=== PATIENT | male | born 1970 | race American Indian/Alaskan Native ===

== ENCOUNTER 2019-10-06 02:01 | Inpatient (IN) | payer MEDICARE ==
--- NOTE | 2019-10-06 03:47 | XRay Report ---
CHEST 2 VIEWS INDICATION / CLINICAL INFORMATION: SOB. COMPARISON: 05/18/2018 FINDINGS: SUPPORT DEVICES: Venous access catheter is present with the tip projecting in the SVC. Catheter is un changed in position. HEART / MEDIASTINUM: No significant abnormality. LUNGS / PLEURA: No significant pulmonary or pleural abnormality. No pneumothorax. ADDITIONAL FINDINGS: No significant additional findings. IMPRESSION: 1. No acute findings. No interval change. Signer Name: Tere Armijo MD Signed: 10/06/2019 3:42 AM Workstation Name: [id number]
[2019-10-06 03:54] LABS: Basophils % (Auto) 0.8 % (0.0-1.8); Eosinophils # (Auto) 0.1 K/mm3 (0.0-0.4); Eosinophils % (Auto) 1.6 % (0.0-4.3); Hematocrit 46.1 % (35.5-45.6); Hemoglobin 14.9 gm/dl (11.8-15.2); Lymphocytes # (Auto) 1.9 K/mm3 (1.2-5.4); Lymphocytes % (Auto) 29.4 % (13.4-35.0); Mean Corpuscular HGB Conc 32 % (32-34); Mean Corpuscular Volume 95 fl (84-94); Monocytes # (Auto) 0.5 K/mm3 (0.0-0.8); Monocytes % (Auto) 8.2 % (0.0-7.3); Platelet Count 151 K/mm3 (140-440); Red Blood Count 4.87 M/mm3 (3.65-5.03); Red Cell Distribution Width 14.6 % (13.2-15.2)
[2019-10-06 04:11] LABS: Alanine Aminotransferase 10 units/L (7-56); Albumin 3.1 g/dL (3.9-5); BUN/Creatinine Ratio 11; Blood Urea Nitrogen 21 mg/dL (9-20); Hemolysis Index 22
[2019-10-06] MEDS ORDERED: ONDANSETRON 4 MG/2 ML INJ IV ONE (08:01)
[2019-10-06] MEDS ORDERED: FAMOTIDINE 20 MG/2 ML INJ IV ONE (08:01)
[2019-10-06] MEDS ORDERED: NITROGLYCERIN 0.4 MG TAB SUBL SL PRN (08:02)
[2019-10-06] MEDS ORDERED: HEPARIN 10,000 UNITS/10 ML VIAL IV ONE (08:02)
--- NOTE | 2019-10-06 08:04 | Emergency Department Report ---
ED General Adult HPI - General Chief complaint: Dyspnea/Respdistress Stated complaint: LUPUS NEPHRITIS/LEGS SWOLLEN/CHEST PAIN Time Seen by Provider: 10/06/19 07:52 Source: patient, RN notes reviewed, old records reviewed Mode of arrival: Ambulatory Limitations: No Limitations - History of Present Illness Initial comments: The patient is a 48-year-old gentleman. He is not known to myself previously. He does not have a local primary care doctor. He has a history of hypercoagulable state, history of DVT, pulmonary embolism, IVC filter, noncompliant with anticoagulation, COPD, tobacco use, obesity, and sleep apnea, noncompliant with CPAP. He has not taken his medicines since January 2019. He presents to the ER with a complaint of acute on chronic bilateral lower extremity pain and swelling, unintentional weight gain, central chest pressure, shortness of breath, vomiting. There is no headache, neck pain. He endorses unintentional weight gain of 15 to 20 pounds. The chest pain is central, and does not radiate anywhere. Shortness of breath is acute on chronic. No hematemesis or bright red blood per rectum. No urinary symptoms that he is aware of. He continues to smoke cigarettes. -: Gradual Location: chest, left, right, lower extremity Radiation: non-radiation Quality: aching Consistency: constant Improves with: rest Worsens with: movement - Related Data Home Medications Medication Instructions Recorded Confirmed Last Taken Gabapentin [Neurontin] 600 mg PO TID 10/12/17 10/12/17 Unknown HYDROcodone/ACETAMINOPHEN [Vicodin 5 mg PO BID 10/12/17 10/12/17 10/12/17 HP 10-300 mg TAB] 1 Methadone [Dolophine] 10 mg PO Q8H 10/12/17 10/12/17 10/12/17 1 Torsemide [Demadex] 100 mg PO QDAY 10/12/17 10/12/17 Unknown traZODone [Desyrel] 100 mg PO QHS 10/12/17 10/12/17 Unknown Previous Rx's Medication Instructions Recorded Last Taken Type Albuterol Sulfate [Proventil Hfa] 2 puff IH Q4H PRN #1 hfa.aer.ad 10/14/17 Unknown Rx Apixaban [Eliquis] 2.5 mg PO BID #60 tablet 10/14/17 Unknown Rx Aspirin 325 mg PO QDAY #30 tablet 10/14/17 Unknown Rx AtorvaSTATin [Lipitor] 20 mg PO QHS #30 tablet 10/14/17 Unknown Rx Azithromycin [Zithromax Z-FRANCISCO] 250 mg PO QAM #1 pack 10/14/17 Unknown Rx carvediloL [Coreg] 6.25 mg PO BID #60 tablet 10/14/17 Unknown Rx lisinopriL [Zestril TAB] 5 mg PO QDAY #30 tablet 10/14/17 Unknown Rx methylPREDNISolone [Medrol Dose 4 mg PO QAM #1 pack 10/14/17 Unknown Rx Francisco] Allergies Allergy/AdvReac Type Severity Reaction Status Date / Time morphine Allergy Hives Verified 08/06/16 16:25 tramadol Allergy Nausea Verified 10/12/17 21:14 ED Review of Systems ROS: Stated complaint: LUPUS NEPHRITIS/LEGS SWOLLEN/CHEST PAIN Other details as noted in HPI Constitutional: malaise. denies: fever Eyes: denies: eye discharge ENT: congestion Respiratory: cough, shortness of breath Cardiovascular: chest pain Gastrointestinal: nausea. denies: hematemesis, melena, hematochezia Genitourinary: denies: dysuria Musculoskeletal: arthralgia, myalgia Skin: as per HPI Neurological: as per HPI, weakness Psychiatric: as per HPI Hematological/Lymphatic: as per HPI. denies: easy bleeding ED Past Medical Hx - Past Medical History Previous Medical History?: Yes Hx Hypertension: Yes Hx Heart Attack/AMI: No Hx Congestive Heart Failure: No Hx Diabetes: No Hx Deep Vein Thrombosis: Yes Hx Pulmonary Embolism: Yes Hx Liver Disease: No Hx Renal Disease: No Hx Arthritis: Yes Hx Kidney Stones: No Hx Asthma: No Hx COPD: Yes Hx Tuberculosis: No Additional medical history: Lupus, DVT BLE and PE - Surgical History Hx Coronary Stent: No Hx Pacemaker: No Hx Internal Defibrillator: No Additional Surgical History: vascular filter - Social History Smoking Status: Current Every Day Smoker Substance Use Type: None - Medications Home Medications: Home Medications Medication Instructions Recorded Confirmed Last Taken Type Gabapentin [Neurontin] 600 mg PO TID 10/12/17 10/12/17 Unknown History HYDROcodone/ACETAMINOPHEN [Vicodin 5 mg PO BID 10/12/17 10/12/17 10/12/17 History HP 10-300 mg TAB] 1 Methadone [Dolophine] 10 mg PO Q8H 10/12/17 10/12/17 10/12/17 History 1 Torsemide [Demadex] 100 mg PO QDAY 10/12/17 10/12/17 Unknown History traZODone [Desyrel] 100 mg PO QHS 10/12/17 10/12/17 Unknown History Albuterol Sulfate [Proventil Hfa] 2 puff IH Q4H PRN #1 hfa.aer.ad 10/14/17 Unknown Rx Apixaban [Eliquis] 2.5 mg PO BID #60 tablet 10/14/17 Unknown Rx Aspirin 325 mg PO QDAY #30 tablet 10/14/17 Unknown Rx AtorvaSTATin [Lipitor] 20 mg PO QHS #30 tablet 10/14/17 Unknown Rx Azithromycin [Zithromax Z-FRANCISCO] 250 mg PO QAM #1 pack 10/14/17 Unknown Rx carvediloL [Coreg] 6.25 mg PO BID #60 tablet 10/14/17 Unknown Rx lisinopriL [Zestril TAB] 5 mg PO QDAY #30 tablet 10/14/17 Unknown Rx methylPREDNISolone [Medrol Dose 4 mg PO QAM #1 pack 10/14/17 Unknown Rx Francisco] ED Physical Exam - General Limitations: No Limitations General appearance: alert, in no apparent distress, obese - Head Head exam: Present: atraumatic, normocephalic - Eye Eye exam: Present: normal appearance, EOMI. Absent: nystagmus - ENT ENT exam: Present: normal exam, normal orophraynx, mucous membranes moist, normal external ear exam - Neck Neck exam: Present: normal inspection, full ROM. Absent: tenderness, meningismus - Respiratory Respiratory exam: Present: normal lung sounds bilaterally, rales. Absent: rhonchi, stridor - Cardiovascular Cardiovascular Exam: Present: regular rate, normal rhythm, normal heart sounds, JVD. Absent: bradycardia, tachycardia, irregular rhythm, systolic murmur, diastolic murmur, rubs, gallop - GI/Abdominal GI/Abdominal exam: Present: soft. Absent: distended, tenderness, guarding, rebound, rigid, pulsatile mass - Rectal Rectal exam: Present: deferred - Extremities Exam Extremities exam: Present: full ROM, tenderness (There is mild diffuse lower extremity cutaneous tenderness, without pus, streaking. Compartments are soft .), pedal edema, other (2+ pulses noted in the bilateral upper and lower extremities. There is no palpable cord. negative Homans sign. Muscular compartments are soft. The pelvis is stable.). Absent: normal inspection (Chronic venous stasis changes noted. Hyperpigmentation noted.), calf tender ness - Back Exam Back exam: Present: normal inspection, full ROM. Absent: tenderness, CVA tenderness (R), CVA tenderness (L), paraspinal tenderness, vertebral tenderness - Neurological Exam Neurological exam: Present: alert, normal gait, other (There is no facial droop. The tongue is midline. Extraocular movements are intact bilaterally. There is 5 out of 5 strength in bilateral upper and lower extremities. Sensation is intact to light touch bilateral upper and lower extremities. There is a normal gait.). Absent: motor sensory deficit - Psychiatric Psychiatric exam: Present: anxious - Skin Skin exam: Present: warm ED Course Vital Signs 10/06/19 10/06/19 10/06/19 02:14 08:28 09:52 Temperature 98.8 F 97.8 F Pulse Rate 83 91 H Respiratory 18 29 H 18 Rate Blood Pressure 186/95 Blood Pressure 142/102 [Left] O2 Sat by Pulse 98 98 96 Oximetry - Reevaluation(s) Reevaluation #1: 10/06/19 09:09 Differential diagnosis, including but not limited to: Cardiorenal syndrome, pneumonia, pulmonary embolism, acute coronary syndrome, noncompliance, DVT, dependent edema, venous stasis, myositis,, lupus, noncompliance Assessment and plan: 48-year-old gentleman with noncompliance, multiple cardiovascular risk factors, with chest pain, shortness of breath, lower extremity edema, JVD, fine rales on physical examination, laboratory studies show hypomagnesemia, renal insufficiency. He will be started on unfractionated heparin. DVT study is pending. Nuclear medicine study is pending. Symptomatic therapy is initiated. Patient moderate risk for major adverse cardiac event as per heart score, and will therefore be admitted for cardiac risk ratification as well. DVT study preliminary interpretation shows chronic DVTs, we are awaiting formal radiology interpretation. Hospital physician, Dr. Castellano to admit patient to the medical service. 10/06/19 09:36 heart socre 5 points Moderate Score (4-6 points) Risk of MACE of 12-16.6%. kat score for ntsemi/ unstable angina 1 points 5% risk at 14 days of: all-cause mortality, new or recurrent LA, or severe recurrent ischemia requiring urgent revascularization. Reevaluation #2: 10/06/19 10:08 DVT study shows chronic DVTs. Nuclear medicine study is pending. Vital Signs 10/06/19 10/06/19 08:28 09:52 Temperature 97.8 F Pulse Rate 91 H Respiratory 29 H 18 Rate Blood Pressure 142/102 [Left] O2 Sat by Pulse 98 96 Oximetry ED Medical Decision Making - Lab Data Result diagrams: 10/07/19 06:55 10/07/19 06:55 Vital Signs 10/06/19 08:28 Respiratory 29 H Rate O2 Sat by Pulse 98 Oximetry Lab Results 10/06/19 10/06/19 10/06/19 Range/Units 03:18 03:18 08:20 WBC 6.3 (4.5-11.0) K/mm3 RBC 4.87 (3.65-5.03) M/mm3 Hgb 14.9 (11.8-15.2) gm/dl Hct 46.1 H (35.5-45.6) % MCV 95 H (84-94) fl MCH 31 (28-32) pg MCHC 32 (32-34) % RDW 14.6 (13.2-15.2) % Plt Count 151 (140-440) K/mm3 Lymph % (Auto) 29.4 (13.4-35.0) % [place] % (Auto) 8.2 H (0.0-7.3) % Eos % (Auto) 1.6 (0.0-4.3) % Baso % (Auto) 0.8 (0.0-1.8) % Lymph # 1.9 (1.2-5.4) K/mm3 [place] # 0.5 (0.0-0.8) K/mm3 Eos # 0.1 (0.0-0.4) K/mm3 Baso # 0.0 (0.0-0.1) K/mm3 Seg Neutrophils % 60.0 (40.0-70.0) % Seg Neutrophils # 3.8 (1.8-7.7) K/mm3 PT (12.2-14.9) Sec. INR (0.87-1.13) APTT (24.2-36.6) Sec. Sodium 139 (137-145) mmol/L Potassium 3.6 (3.6-5.0) mmol/L Chloride 105.9 (98-107) mmol/L Carbon Dioxide 21 L (22-30) mmol/L Anion Gap 16 mmol/L BUN 21 H (9-20) mg/dL Creatinine 2.0 H (0.8-1.5) mg/dL Estimated GFR 43 ml/min BUN/Creatinine Ratio 11 % Glucose 89 (75-100) mg/dL Uric Acid (3.5-7.6) mg/dL Calcium 8.0 L (8.4-10.2) mg/dL Magnesium (1.7-2.3) mg/dL Total Bilirubin < 0.20 (0.1-1.2) mg/dL Direct Bilirubin (0-0.2) mg/dL AST 18 (5-40) units/L ALT 10 (7-56) units/L Alkaline Phosphatase 69 (35-129) units/L Total Creatine Kinase (55-170) units/L Troponin T < 0.010 (0.00-0.029) ng/mL NT-Pro-B Natriuret Pep 269.0 (0-900) pg/mL Total Protein 6.4 (6.3-8.2) g/dL Albumin 3.1 L (3.9-5) g/dL Albumin/Globulin Ratio 0.9 % TSH 2.120 (0.270-4.200) mlU/mL 10/06/19 10/06/19 Range/Units 08:20 08:20 WBC (4.5-11.0) K/mm3 RBC (3.65-5.03) M/mm3 Hgb (11.8-15.2) gm/dl Hct (35.5-45.6) % MCV (84-94) fl MCH (28-32) pg MCHC (32-34) % RDW (13.2-15.2) % Plt Count (140-440) K/mm3 Lymph % (Auto) (13.4-35.0) % [place] % (Auto) (0.0-7.3) % Eos % (Auto) (0.0-4.3) % Baso % (Auto) (0.0-1.8) % Lymph # (1.2-5.4) K/mm3 [place] # (0.0-0.8) K/mm3 Eos # (0.0-0.4) K/mm3 Baso # (0.0-0.1) K/mm3 Seg Neutrophils % (40.0-70.0) % Seg Neutrophils # (1.8-7.7) K/mm3 PT 13.0 (12.2-14.9) Sec. INR 0.97 (0.87-1.13) APTT 27.0 (24.2-36.6) Sec. Sodium (137-145) mmol/L Potassium (3.6-5.0) mmol/L Chloride (98-107) mmol/L Carbon Dioxide (22-30) mmol/L Anion Gap mmol/L BUN (9-20) mg/dL Creatinine (0.8-1.5) mg/dL Estimated GFR ml/min BUN/Creatinine Ratio % Glucose (75-100) mg/dL Uric Acid 6.4 (3.5-7.6) mg/dL Calcium (8.4-10.2) mg/dL Magnesium 1.40 L (1.7-2.3) mg/dL Total Bilirubin 0.30 (0.1-1.2) mg/dL Direct Bilirubin < 0.2 (0-0.2) mg/dL AST 15 (5-40) units/L ALT 9 (7-56) units/L Alkaline Phosphatase 67 (35-129) units/L Total Creatine Kinase 456 H (55-170) units/L Troponin T (0.00-0.029) ng/mL NT-Pro-B Natriuret Pep 231.6 (0-900) pg/mL Total Protein 6.5 (6.3-8.2) g/dL Albumin 3.1 L (3.9-5) g/dL Albumin/Globulin Ratio 0.9 % TSH (0.270-4.200) mlU/mL Lab Results 10/06/19 10/06/19 10/06/19 Range/Units 03:18 03:18 08:20 WBC 6.3 (4.5-11.0) K/mm3 RBC 4.87 (3.65-5.03) M/mm3 Hgb 14.9 (11.8-15.2) gm/dl Hct 46.1 H (35.5-45.6) % MCV 95 H (84-94) fl MCH 31 (28-32) pg MCHC 32 (32-34) % RDW 14.6 (13.2-15.2) % Plt Count 151 (140-440) K/mm3 Lymph % (Auto) 29.4 (13.4-35.0) % [place] % (Auto) 8.2 H (0.0-7.3) % Eos % (Auto) 1.6 (0.0-4.3) % Baso % (Auto) 0.8 (0.0-1.8) % Lymph # 1.9 (1.2-5.4) K/mm3 [place] # 0.5 (0.0-0.8) K/mm3 Eos # 0.1 (0.0-0.4) K/mm3 Baso # 0.0 (0.0-0.1) K/mm3 Seg Neutrophils % 60.0 (40.0-70.0) % Seg Neutrophils # 3.8 (1.8-7.7) K/mm3 PT (12.2-14.9) Sec. INR (0.87-1.13) APTT (24.2-36.6) Sec. Sodium 139 (137-145) mmol/L Potassium 3.6 (3.6-5.0) mmol/L Chloride 105.9 (98-107) mmol/L Carbon Dioxide 21 L (22-30) mmol/L Anion Gap 16 mmol/L BUN 21 H (9-20) mg/dL Creatinine 2.0 H (0.8-1.5) mg/dL Estimated GFR 43 ml/min BUN/Creatinine Ratio 11 % Glucose 89 (75-100) mg/dL Uric Acid (3.5-7.6) mg/dL Calcium 8.0 L (8.4-10.2) mg/dL Magnesium (1.7-2.3) mg/dL Total Bilirubin < 0.20 (0.1-1.2) mg/dL Direct Bilirubin (0-0.2) mg/dL AST 18 (5-40) units/L ALT 10 (7-56) units/L Alkaline Phosphatase 69 (35-129) units/L Total Creatine Kinase (55-170) units/L Troponin T < 0.010 (0.00-0.029) ng/mL NT-Pro-B Natriuret Pep 269.0 (0-900) pg/mL Total Protein 6.4 (6.3-8.2) g/dL Albumin 3.1 L (3.9-5) g/dL Albumin/Globulin Ratio 0.9 % TSH 2.120 (0.270-4.200) mlU/mL 10/06/19 10/06/19 Range/Units 08:20 08:20 WBC (4.5-11.0) K/mm3 RBC (3.65-5.03) M/mm3 Hgb (11.8-15.2) gm/dl Hct (35.5-45.6) % MCV (84-94) fl MCH (28-32) pg MCHC (32-34) % RDW (13.2-15.2) % Plt Count (140-440) K/mm3 Lymph % (Auto) (13.4-35.0) % [place] % (Auto) (0.0-7.3) % Eos % (Auto) (0.0-4.3) % Baso % (Auto) (0.0-1.8) % Lymph # (1.2-5.4) K/mm3 [place] # (0.0-0.8) K/mm3 Eos # (0.0-0.4) K/mm3 Baso # (0.0-0.1) K/mm3 Seg Neutrophils % (40.0-70.0) % Seg Neutrophils # (1.8-7.7) K/mm3 PT 13.0 (12.2-14.9) Sec. INR 0.97 (0.87-1.13) APTT 27.0 (24.2-36.6) Sec. Sodium (137-145) mmol/L Potassium (3.6-5.0) mmol/L Chloride (98-107) mmol/L Carbon Dioxide (22-30) mmol/L Anion Gap mmol/L BUN (9-20) mg/dL Creatinine (0.8-1.5) mg/dL Estimated GFR ml/min BUN/Creatinine Ratio % Glucose (75-100) mg/dL Uric Acid 6.4 (3.5-7.6) mg/dL Calcium (8.4-10.2) mg/dL Magnesium 1.40 L (1.7-2.3) mg/dL Total Bilirubin 0.30 (0.1-1.2) mg/dL Direct Bilirubin < 0.2 (0-0.2) mg/dL AST 15 (5-40) units/L ALT 9 (7-56) units/L Alkaline Phosphatase 67 (35-129) units/L Total Creatine Kinase 456 H (55-170) units/L Troponin T (0.00-0.029) ng/mL NT-Pro-B Natriuret Pep 231.6 (0-900) pg/mL Total Protein 6.5 (6.3-8.2) g/dL Albumin 3.1 L (3.9-5) g/dL Albumin/Globulin Ratio 0.9 % TSH (0.270-4.200) mlU/mL Vital Signs 10/06/19 08:28 Respiratory 29 H Rate O2 Sat by Pulse 98 Oximetry - EKG Data -: EKG Interpreted by Me EKG shows normal: sinus rhythm Rate: normal - EKG Data 10/06/19 09:35 Sinus rhythm, 76 bpm, normal axis, QTC within normal limits, left ventricular hypertrophy, motion artifact. The EKG is abnormal. It is not a STEMI. - Radiology Data Radiology results: report reviewed, image reviewed interpreted by me: I have reviewed the x-ray of the chest, I appreciate cardiomegaly, and pulmonary vascular congestion. Patient's examination is also consistent with fluid overload. Print Report Referring Physician: ED DOC Patient Name: ERICA BAUER Date of : 1970 Sex: Male Report Date: 2019-10-06 Report Status: Finalized Findings [facility] [address] [place] [address] XRay Report Signed Patient: ERICA BAUER MR#: [id number] : 1970 Acct:[id number] Age/Sex: 48 / M ADM Date: 10/06/19 Loc: ED Attending Dr: Ordering Physician: ED MD YOVANI Date of Service: 10/06/19 Procedure(s): XR chest routine 2V Accession Number(s): [id number] cc: ED DOC, Fluoro Time In Minutes: CHEST 2 VIEWS INDICATION / CLINICAL INFORMATION: SOB. COMPARISON: 05/18/2018 FINDINGS: SUPPORT DEVICES: Venous access catheter is present with the tip projecting in the SVC. Catheter is unchanged in position. HEART / MEDIASTINUM: No significant abnormality. LUNGS / PLEURA: No significant pulmonary or pleural abnormality. No pneumothorax. ADDITIONAL FINDINGS: No significant additional findings. IMPRESSION: 1. No acute findings. No interval change. Signer Name: Tere Armijo MD Signed: 10/06/2019 3:42 AM Workstation Name: [id number] Transcribed By: JR Dictated By: Tere Armijo MD Electronically Authenticated By: Tere Armijo MD Signed Date/Time: 10/06/19 0342 - Medical Decision Making Differential diagnosis, including but not limited to: Critical Care Time: Yes Critical care time in (mins) excluding proc time.: 35 Critical care attestation.: If time is entered above; I have spent that time in minutes in the direct care of this critically ill patient, excluding procedure time. ED Disposition Clinical Impression: Acute chest pain, FLAVIO (acute kidney injury), Dyspnea, Coagulation disorder, Chronic deep vein thrombosis (DVT), Noncompliance, Hypomagnesemia Disposition: OP ADMIT IP TO THIS HOSP Is pt being admited?: Yes Does the pt Need Aspirin: No Condition: Serious
[2019-10-06 08:43] LABS: INR 0.97 (0.87-1.13)
[2019-10-06 08:58] LABS: Alanine Aminotransferase 9 units/L (7-56); Albumin 3.1 g/dL (3.9-5); Bilirubin,Direct < 0.2 mg/dL (0-0.2); Uric Acid 6.4 mg/dL (3.5-7.6)
[2019-10-06] MEDS: HEPARIN/ 0.45% NACL DRIP 25,000 UNIT/500 ML BAG IV SCH (09:27)
[2019-10-06] MEDS ORDERED: ACETAMINOPHEN 325 MG TAB PO ONE (09:33)
[2019-10-06] MEDS ORDERED: MAGNESIUM SULFATE 2 GM/50 ML BAG IV ONE ×2 (09:35→18:22)
[2019-10-06] MEDS ORDERED: ASPIRIN 81 MG TAB CHEW PO ONE (09:35)
--- NOTE | 2019-10-06 09:47 | Vascular Lab Report ---
DUPLEX DOPPLER LOWER EXTREMITY VEINS, BILATERAL INDICATION: b/l lower ext pain swelling. TECHNIQUE: Duplex doppler imaging was performed through the veins of both lower extremities using venous shanique melissa and other maneuvers. COMPARISON: 10/13/2017 FINDINGS: Right Common femoral vein: Chronic appearing DVT with recanalization noted. Right Superficial femoral vein: Chronic appearing DVT with recanalization noted. Right Popliteal vein: Negative. Right Calf veins: Chronic appearing DVT Left Common femoral vein: Chronic appearing DVT Left Superficial femoral vein: Chronic appearing DVT Left Popliteal vein: Chronic appearing DVT Left Calf veins: Negative. Additional findings: Dilated superficial veins are noted in the left thigh. IMPRESSION: 1. Chronic DVTs are noted bilaterally. Technologist notified Dr. Roldan of the results at 0915 hours Signer Name: Chinedu Leon MD Signed: 10/06/2019 9:43 AM Workstation Name: [id number]
[2019-10-06] MEDS ORDERED: SODIUM CHLORIDE 0.9% 250ML 250 ML IV ONE (09:49)
[2019-10-06] MEDS ORDERED: HYDROmorphone 1 MG/1 ML INJ IM PRN (11:40)
[2019-10-06] MEDS: HYDROmorphone 1 MG/1 ML INJ IV PRN ×3 (11:57→21:28)
--- NOTE | 2019-10-06 13:13 | Nuclear Medicine Report ---
NUCLEAR MEDICINE VENTILATION/PERFUSION LUNG SCAN INDICATION: Shortness of breath TECHNIQUE: 16.6 mCi of Xenon-133 were given by inhalation. 5.25 mCi of Tc 99m MAA were given by IV. FINDINGS: Comparison with chest radiograph from 10/06/2019. There is a moderate unmatched perfusion defect in the lateral aspect of the left upper lobe. Ventilat ion perfusion in the right lung matched. There is no air trapping. No ventilation defects are identif ied. IMPRESSION: VQ scan is intermediate probability for pulmonary embolus. Signer Name: Chinedu Leon MD Signed: 10/06/2019 1:08 PM Workstation Name: [id number]
[2019-10-06 15:25] LABS: Bilirubin,Urine NEG (Negative); Blood,Urine SM (Negative); Color,Urine Yellow (Yellow); Mucus,Urine FEW /HPF; Urobilinogen,Urine < 2.0 mg/dL (<2.0)
[2019-10-06 15:31] LABS: Protein,Urine >2000 mg dL mg/dL (Negative)
[2019-10-06 15:41] LABS: Creatinine,Urine 173.7 mg/dL (0.1-20.0)
--- NOTE | 2019-10-06 17:11 | History and Physical Report ---
History of Present Illness Date of examination: 10/06/19 Date of admission: 10/06/19 09:50 Chief complaint: Leg pains History of present illness: Patient is a 48 yo AA man with history of hypertension, PAD s/p right leg stent placement, tobacco dependency, bilateral leg DVT s/p IVC filter, bilateral PE off Eliquis since January 2019 due to loss of disability insurance, SLE with nephritis s/p Chemotherapy and HD who presents to [facility] ED with severe throbbing constant but varying intensity radiating from mid thigh to ankle bilaterally progressing getting worse over 1 week without aggravating or relieving factors associated with SOB, substernal mid chest pressure, 15 lb weight gain and n/v without abdomial pains. There is no headache, neck pain, fever, chills, cough. He reports not taking his medication since last year and not following up with any doctor. PMH: as hpi PSH: right chest wall port since 2007, Holman IVC filter 1999, 2 kidney biopsies SH: 1ppd cigarettes, denies alcohol or illicit drug use FH:mother has unspecified autoimmune disease, father of cardiac complications early 60s ROS: Constitutional: denies: fever ENT: denies: throat or neck pain Respiratory: +cough, shortness of breath Cardiovascular: + chest pain Endocrine: + unexplained weight l gain Gastrointestinal: denies: abdominal pain, +nausea Genitourinary: denies: dysuria Rectal: denies no incontinence, no bleeding, no itching, no discharge Musculoskeletal: denies swelling, myaglia, muscle weakness Skin: + rash with itching back of hand Neurological: denies: headache Hematological/Lymphatic: denies: easy bleeding or easy bruising Allergic/Immunologic: + urticaria, no allergic rhinitis, no anaphylaxis Psych: denies sadness or hopelessness, SI/HI Medications and Allergies Allergies Allergy/AdvReac Type Severity Reaction Status Date / Time morphine Allergy Hives Verified 08/06/16 16:25 tramadol Allergy Nausea Verified 10/12/17 21:14 Home Medications Medication Instructions Recorded Confirmed Last Taken Type Gabapentin [Neurontin] 600 mg PO TID 10/12/17 10/12/17 Unknown History HYDROcodone/ACETAMINOPHEN [Vicodin 5 mg PO BID 10/12/17 10/12/17 10/12/17 His tory HP 10-300 mg TAB] 1 Methadone [Dolophine] 10 mg PO Q8H 10/12/17 10/12/17 10/12/17 History 1 Torsemide [Demadex] 100 mg PO QDAY 10/12/17 10/12/17 Unknown History traZODone [Desyrel] 100 mg PO QHS 10/12/17 10/12/17 Unknown History Albuterol Sulfate [Proventil Hfa] 2 puff IH Q4H PRN #1 hfa.aer.ad 10/14/17 Unknown Rx Apixaban [Eliquis] 2.5 mg PO BID #60 tablet 10/14/17 Unknown Rx Aspirin 325 mg PO QDAY #30 tablet 10/14/17 Unknown Rx AtorvaSTATin [Lipitor] 20 mg PO QHS #30 tablet 10/14/17 Unknown Rx Azithromycin [Zithromax Z-SANTY] 250 mg PO QAM #1 pack 10/14/17 Unknown Rx carvediloL [Coreg] 6.25 mg PO BID #60 tablet 10/14/17 Unknown Rx lisinopriL [Zestril TAB] 5 mg PO QDAY #30 tablet 10/14/17 Unknown Rx methylPREDNISolone [Medrol Dose 4 mg PO QAM #1 pack 10/14/17 Unknown Rx Santy] Active Meds: Active Medications Hydromorphone HCl (Dilaudid) 1 mg IV Q4H PRN PRN Reason: Pain , Severe (7-10) Last Admin: 10/06/19 16:49 Dose: 1 mg Documented by: Heparin Sodium/Sodium Chloride (Heparin/ 0.45% Nacl-25,000 Unit/500 Ml) 25,000 unit in 500 mls @ 30 mls/hr IV TITR RAKESH; Protocol Last Admin: 10/06/19 09:27 Dose: 1,500 units/hr, 30 mls/hr Documented by: Nitroglycerin (Nitrostat) 0.4 mg SL .Q5MIN PRN PRN Reason: Chest Pain Exam - Physical Exam Narrative exam: Gen: WDWN, NAD, Awake, Alert, Orientated x 3 HEENT: NCAT, EOMI, PERRL, OP Clear Neck: supple, no adenopathy, no thyromegaly, equivocal JVD CVS/Heart: RRR, normal S1S2, pulses present bilaterally Chest/Lungs: CTA B, Symmetrical chest expansion, good air entry bilaterally GI/Abdomen: soft, NTND, good bowel sounds, no guarding or rebound /Bladder: no suprapubic tenderness, no CVA or paraspinal tenderness Extermity/Skin: ble edema with hyperpigmentation up to mid thigh, chronic venous bilateral changes, dysmorphic edema back of left hand thenar area MSK: FROM x 4 Neuro: CN 2-12 grossly intact, no new focal deficits Psych: calm - Constitutional Vitals: Temp Pulse Resp BP Pulse Ox 98.0 F 68 22 140/86 97 10/06/19 15:47 10/06/19 15:47 10/06/19 15:47 10/06/19 15:47 10/06/19 15:47 Results - Labs CBC & Chem 7: 10/06/19 03:18 10/06/19 03:18 Labs: Laboratory Last Values WBC 6.3 K/mm3 (4.5-11.0) 10/06/19 03:18 RBC 4.87 M/mm3 (3.65-5.03) 10/06/19 03:18 Hgb 14.9 gm/dl (11.8-15.2) 10/06/19 03:18 Hct 46.1 % (35.5-45.6) H 10/06/19 03:18 MCV 95 fl (84-94) H 10/06/19 03:18 MCH 31 pg (28-32) 10/06/19 03:18 MCHC 32 % (32-34) 10/06/19 03:18 RDW 14.6 % (13.2-15.2) 10/06/19 03:18 Plt Count 151 K/mm3 (140-440) 10/06/19 03:18 Lymph % (Auto) 29.4 % (13.4-35.0) 10/06/19 03:18 [place] % (Auto) 8.2 % (0.0-7.3) H 10/06/19 03:18 Eos % (Auto) 1.6 % (0.0-4.3) 10/06/19 03:18 Baso % (Auto) 0.8 % (0.0-1.8) 10/06/19 03:18 Lymph # 1.9 K/mm3 (1.2-5.4) 10/06/19 03:18 [place] # 0.5 K/mm3 (0.0-0.8) 10/06/19 03:18 Eos # 0.1 K/mm3 (0.0-0.4) 10/06/19 03:18 Baso # 0.0 K/mm3 (0.0-0.1) 10/06/19 03:18 Seg Neutrophils % 60.0 % (40.0-70.0) 10/06/19 03:18 Seg Neutrophils # 3.8 K/mm3 (1.8-7.7) 10/06/19 03:18 PT 13.0 Sec. (12.2-14.9) 10/06/19 08:20 INR 0.97 (0.87-1.13) 10/06/19 08:20 APTT 27.0 Sec. (24.2-36.6) 10/06/19 08:20 Heparin Anti-Xa Level 0.50 U.I./ml (0.3-0.7) 10/06/19 15:30 Sodium 139 mmol/L (137-145) 10/06/19 03:18 Potassium 3.6 mmol/L (3.6-5.0) 10/06/19 03:18 Chloride 105.9 mmol/L (98-107) 10/06/19 03:18 Carbon Dioxide 21 mmol/L (22-30) L 10/06/19 03:18 Anion Gap 16 mmol/L 10/06/19 03:18 BUN 21 mg/dL (9-20) H 10/06/19 03:18 Creatinine 2.0 mg/dL (0.8-1.5) H 10/06/19 03:18 Estimated GFR 43 ml/min 10/06/19 03:18 BUN/Creatinine Ratio 11 % 10/06/19 03:18 Glucose 89 mg/dL (75-100) 10/06/19 03:18 Uric Acid 6.4 mg/dL (3.5-7.6) 10/06/19 08:20 Calcium 8.0 mg/dL (8.4-10.2) L 10/06/19 03:18 Magnesium 1.40 mg/dL (1.7-2.3) L 10/06/19 08:20 Total Bilirubin 0.30 mg/dL (0.1-1.2) 10/06/19 08:20 Direct Bilirubin < 0.2 mg/dL (0-0.2) 10/06/19 08:20 AST 15 units/L (5-40) 10/06/19 08:20 ALT 9 units/L (7-56) 10/06/19 08:20 Alkaline Phosphatase 67 units/L (35-129) 10/06/19 08:20 Total Creatine Kinase 456 units/L (55-170) H 10/06/19 08:20 Troponin T < 0.010 ng/mL (0.00-0.029) 10/06/19 03:18 NT-Pro-B Natriuret Pep 231.6 pg/mL (0-900) 10/06/19 08:20 Total Protein 6.5 g/dL (6.3-8.2) 10/06/19 08:20 Albumin 3.1 g/dL (3.9-5) L 10/06/19 08:20 Albumin/Globulin Ratio 0.9 % 10/06/19 08:20 TSH 2.120 mlU/mL (0.270-4.200) 10/06/19 08:20 Urine Color Yellow (Yellow) 10/06/19 15:07 Urine Turbidity Clear (Clear) 10/06/19 15:07 Urine pH 6.0 (5.0-7.0) 10/06/19 15:07 Ur Specific [place] 1.020 (1.003-1.030) 10/06/19 15:07 Urine Protein >2000 mg dl mg/dL (Negative) 10/06/19 15:07 Urine Glucose (UA) Neg mg/dL (Negative) 10/06/19 15:07 Urine Ketones Neg mg/dL (Negative) 10/06/19 15:07 Urine Blood Sm (Negative) 10/06/19 15:07 Urine Nitrite Neg (Negative) 10/06/19 15:07 Urine Bilirubin Neg (Negative) 10/06/19 15:07 Urine Urobilinogen < 2.0 mg/dL (<2.0) 10/06/19 15:07 Ur Leukocyte Esterase Neg (Negative) 10/06/19 15:07 Urine WBC (Auto) 1.0 /HPF (0.0-6.0) 10/06/19 15:07 Urine RBC (Auto) 3.0 /HPF (0.0-6.0) 10/06/19 15:07 Urine Mucus Few /HPF 10/06/19 15:07 Urine Creatinine 173.7 mg/dL (0.1-20.0) H 10/06/19 15:07 Urine Sodium 116 mmol/L 10/06/19 15:07 Assessment and Plan Assessment and plan: Patient is a 48 yo AA man with history of hypertension, PAD s/p right leg stent placement, tobacco dependency, bilateral leg DVT s/p IVC filter, bilateral PE off Eliquis since January 2019 due to loss of disability insurance, SLE with nephritis s/p Chemotherapy and HD who presents to [facility] ED with severe throbbing constant but varying intensity radiating from mid thigh to ankle bilaterally progressing getting worse over 1 week without aggravating or relieving factors associated with SOB, substernal mid chest pressure, 15 lb weight gain and n/v without abdomial pains. There is no headache, neck pain, fever, chills, cough. He reports not taking his medication since last year and not following up with any doctor. * V/Q scan IMPRESSION: VQ scan is intermediate probability for pulmonary embolus. * Bilateral Venous Leg doppler IMPRESSION: 1. Chronic DVTs are noted bilaterally. * 2v CXR IMPRESSION: 1. No acute findings. No interval change. Chest pains Immediate V/Q scan, high suspicion for PE: treat with anticoagulation, eventually Eliquis, get ECHO BLE pains due to Chronic BLE DVT: restart a/c ARF, vasomotor nephropathy, last Cr in our system was 0.9 on 05/18/2018, now 2.0: treat with IVF, monitor bmp closely Tobacco dependency: advise to stop smoking, offered nicotine patch PAD: encourage to stop smoking, consult Vascular surgery, ?if ble pain is PAD vs DVT related and treatment options. 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 benadryl Accelerated hypertension: iv hydrazine prn, start Norvasc Hypomagnesemia: replete and monitor levels DVT ppx therapeutic a/c CCT 35 minutes
[2019-10-06] MEDS ORDERED: ACETAMINOPHEN 325 MG TAB PO PRN (17:21)
[2019-10-06] MEDS ORDERED: POLYETHYLENE GLYCOL 3350 17 GM POWDER PO PRN (17:22)
[2019-10-06] MEDS: PANTOPRAZOLE 40 MG TAB PO SCH (18:00)
[2019-10-06] MEDS: SODIUM CHLORIDE 0.45% 1000 ML 1,000 ML IV SCH (18:00)
[2019-10-06] MEDS: NICOTINE 21 MG/24 HR PATCH TD SCH (18:00)
[2019-10-06] MEDS: amLODIPine 5 MG TAB PO SCH (18:00)
[2019-10-06] MEDS: ONDANSETRON 4 MG/2 ML INJ IV PRN (18:00)
[2019-10-06] MEDS: TRIAMCINOLONE 0.1% CREAM 15 GM TP SCH (21:27)
[2019-10-07] MEDS: HYDROmorphone 1 MG/1 ML INJ IV PRN ×4 (02:52→21:08)
[2019-10-07] MEDS: SODIUM CHLORIDE 0.45% 1000 ML 1,000 ML IV SCH ×2 (05:52→17:44)
[2019-10-07] MEDS: HEPARIN/ 0.45% NACL DRIP 25,000 UNIT/500 ML BAG IV SCH (06:19)
--- NOTE | 2019-10-07 07:05 | Progress Note ---
Assessment and Plan Assessment and plan: Patient is a 48 yo AA man with history of hypertension, PAD s/p right leg stent placement, tobacco dependency, bilateral leg DVT s/p IVC filter, bilateral PE off Eliquis since January 2019 due to loss of disability insurance, SLE with nephritis s/p Chemotherapy and HD who presents to [facility] ED with severe throbbing constant but varying intensity radiating from mid thigh to ankle bilaterally progressing getting worse over 1 week without aggravating or relieving factors associated with SOB, substernal mid chest pressure, 15 lb weight gain and nausea without abdomial pains or vomiting. There is no headache, neck pain, fever, chills, cough. He reports not taking his medication since last year and not foll owing up with any doctor. * V/Q scan IMPRESSION: VQ scan is intermediate probability for pulmonary embolus. * Bilateral Venous Leg doppler IMPRESSION: 1. Chronic DVTs are noted bilaterally. * 2v CXR IMPRESSION: 1. No acute findings. No interval change. Chest pains Immediate V/Q scan, high suspicion for PE: treat with anticoagulation, eventually Eliquis, get ECHO BLE pains due to Chronic BLE DVT: restart a/c ARF, vasomotor nephropathy, last Cr in our system was 0.9 on 05/18/2018, now 2.0: treat with IVF, monitor bmp closely Tobacco dependency: advise to stop smoking, offered nicotine patch PAD: encourage to stop smoking, consult Vascular surgery, ?if ble pain is PAD vs DVT related and treatment options. 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 benadryl Accelerated hypertension: iv hydrazine prn, start Norvasc Hypomagnesemia: replete and monitor levels DVT ppx therapeutic a/c 10/07/2019: Admitted yesterday, legs still painful at rest, await Vascular surgery evaluation, still being monitored closely on heparin IV drip. Will get XR for the nausea which he had on admission, will get ABD XRAY; labs pending for today also History Interval history: Patient was seen and examined. Follow-up on current diagnosis of BLE leg pains. Overnight patient nauseated twice, denies constipation, stool are more loose, no vomiting or abdominal pains. Patient denies any chest pain, shortness breath, severe headaches. Imaging, nursing note, chart, labs and old chart reviewed. Discussed with patient. Hospitalist Physical - Physical exam Narrative exam: Gen: WDWN, NAD, Awake, Alert, Orientated x 3 HEENT: NCAT, EOMI, PERRL, OP Clear Neck: supple, no adenopathy, no thyromegaly, equivocal JVD CVS/Heart: RRR, normal S1S2, pulses present bilaterally Chest/Lungs: CTA B, Symmetrical chest expansion, good air entry bilaterally GI/Abdomen: soft, NT, distended, good bowel sounds, no guarding or rebound /Bladder: no suprapubic tenderness, no CVA or paraspinal tenderness Extermity/Skin: ble edema with hyperpigmentation up to mid thigh, chronic venous bilateral changes, dysmorphic edema back of left hand thenar area MSK: FROM x 4 Neuro: CN 2-12 grossly intact, no new focal deficits Psych: calm - Constitutional Vitals: Temp Pulse Resp BP Pulse Ox 98.0 F 66 20 164/89 94 10/06/19 23:18 10/06/19 23:18 10/06/19 23:18 10/06/19 23:18 10/06/19 23:18 Results - Labs CBC & Chem 7: 10/06/19 03:18 10/06/19 03:18 Labs: Laboratory Last Values WBC 6.3 K/mm3 (4.5-11.0) 10/06/19 03:18 RBC 4.87 M/mm3 (3.65-5.03) 10/06/19 03:18 Hgb 14.9 gm/dl (11.8-15.2) 10/06/19 03:18 Hct 46.1 % (35.5-45.6) H 10/06/19 03:18 MCV 95 fl (84-94) H 10/06/19 03:18 MCH 31 pg (28-32) 10/06/19 03:18 MCHC 32 % (32-34) 10/06/19 03:18 RDW 14.6 % (13.2-15.2) 10/06/19 03:18 Plt Count 151 K/mm3 (140-440) 10/06/19 03:18 Lymph % (Auto) 29.4 % (13.4-35.0) 10/06/19 03:18 Isabella % (Auto) 8.2 % (0.0-7.3) H 10/06/19 03:18 Eos % (Auto) 1.6 % (0.0-4.3) 10/06/19 03:18 Baso % (Auto) 0.8 % (0.0-1.8) 10/06/19 03:18 Lymph # 1.9 K/mm3 (1.2-5.4) 10/06/19 03:18 Isabella # 0.5 K/mm3 (0.0-0.8) 10/06/19 03:18 Eos # 0.1 K/mm3 (0.0-0.4) 10/06/19 03:18 Baso # 0.0 K/mm3 (0.0-0.1) 10/06/19 03:18 Seg Neutrophils % 60.0 % (40.0-70.0) 10/06/19 03:18 Seg Neutrophils # 3.8 K/mm3 (1.8-7.7) 10/06/19 03:18 PT 13.0 Sec. (12.2-14.9) 10/06/19 08:20 INR 0.97 (0.87-1.13) 10/06/19 08:20 APTT 27.0 Sec. (24.2-36.6) 10/06/19 08:20 Heparin Anti-Xa Level 0.50 U.I./ml (0.3-0.7) 10/06/19 15:30 Sodium 139 mmol/L (137-145) 10/06/19 03:18 Potassium 3.6 mmol/L (3.6-5.0) 10/06/19 03:18 Chloride 105.9 mmol/L (98-107) 10/06/19 03:18 Carbon Dioxide 21 mmol/L (22-30) L 10/06/19 03:18 Anion Gap 16 mmol/L 10/06/19 03:18 BUN 21 mg/dL (9-20) H 10/06/19 03:18 Creatinine 2.0 mg/dL (0.8-1.5) H 10/06/19 03:18 Estimated GFR 43 ml/min 10/06/19 03:18 BUN/Creatinine Ratio 11 % 10/06/19 03:18 Glucose 89 mg/dL (75-100) 10/06/19 03:18 Uric Acid 6.4 mg/dL (3.5-7.6) 10/06/19 08:20 Calcium 8.0 mg/dL (8.4-10.2) L 10/06/19 03:18 Magnesium 1.40 mg/dL (1.7-2.3) L 10/06/19 08:20 Total Bilirubin 0.30 mg/dL (0.1-1.2) 10/06/19 08:20 Direct Bilirubin < 0.2 mg/dL (0-0.2) 10/06/19 08:20 AST 15 units/L (5-40) 10/06/19 08:20 ALT 9 units/L (7-56) 10/06/19 08:20 Alkaline Phosphatase 67 units/L (35-129) 10/06/19 08:20 Total Creatine Kinase 456 units/L (55-170) H 10/06/19 08:20 Troponin T < 0.010 ng/mL (0.00-0.029) 10/06/19 03:18 NT-Pro-B Natriuret Pep 231.6 pg/mL (0-900) 10/06/19 08:20 Total Protein 6.5 g/dL (6.3-8.2) 10/06/19 08:20 Albumin 3.1 g/dL (3.9-5) L 10/06/19 08:20 Albumin/Globulin Ratio 0.9 % 10/06/19 08:20 TSH 2.120 mlU/mL (0.270-4.200) 10/06/19 08:20 Urine Color Yellow (Yellow) 10/06/19 15:07 Urine Turbidity Clear (Clear) 10/06/19 15:07 Urine pH 6.0 (5.0-7.0) 10/06/19 15:07 Ur Specific [place] 1.020 (1.003-1.030) 10/06/19 15:07 Urine Protein >2000 mg dl mg/dL (Negative) 10/06/19 15:07 Urine Glucose (UA) Neg mg/dL (Negative) 10/06/19 15:07 Urine Ketones Neg mg/dL (Negative) 10/06/19 15:07 Urine Blood Sm (Negative) 10/06/19 15:07 Urine Nitrite Neg (Negative) 10/06/19 15:07 Urine Bilirubin Neg (Negative) 10/06/19 15:07 Urine Urobilinogen < 2.0 mg/dL (<2.0) 10/06/19 15:07 Ur Leukocyte Esterase Neg (Negative) 10/06/19 15:07 Urine WBC (Auto) 1.0 /HPF (0.0-6.0) 10/06/19 15:07 Urine RBC (Auto) 3.0 /HPF (0.0-6.0) 10/06/19 15:07 Urine Mucus Few /HPF 10/06/19 15:07 Urine Creatinine 173.7 mg/dL (0.1-20.0) H 10/06/19 15:07 Urine Sodium 116 mmol/L 10/06/19 15:07 Paige/IV: Voiding Method Toilet IV Catheter Type [Right Chest] Infusaport Active Medications - Current Medications Current Medications: Generic Name Dose Route Start Last Admin Trade Name Freq PRN Reason Stop Dose Admin Acetaminophen 650 mg 10/06/19 17:21 Tylenol PO Q6H PRN Non Cardiac Pain or Temp>100.5 Amlodipine Besylate 5 mg 10/06/19 18:00 10/06/19 18:00 Amlodipine PO 5 mg QDAY RAKESH Administration Aspirin 325 mg 10/07/19 10:00 Aspirin PO QDAY RAKESH Atorvastatin Calcium 40 mg 10/06/19 22:00 10/06/19 21:28 Lipitor PO 40 mg QHS RAKESH Administration Diphenhydramine HCl 25 mg 10/06/19 17:25 Benadryl IV Q6H PRN Itching Hydralazine HCl 10 mg 10/06/19 17:22 Apresoline IV Q4HR PRN Blood Pressure Hydromorphone HCl 1 mg 10/06/19 11:45 10/07/19 02:52 Dilaudid IV 1 mg Q4H PRN Administration Pain , Severe (7-10) Heparin Sodium/Sodium Chloride 25,000 unit in 500 mls @ 30 mls/hr 10/06/19 09:00 10/07/19 06:19 Heparin/ 0.45% Nacl-25,000 Unit/500 Ml IV 1,500 units/hr TITR RAKESH 30 mls/hr Administration Protocol 1,500 UNITS/HR Sodium Chloride 1,000 mls @ 100 mls/hr 10/06/19 18:00 10/07/19 05:52 Nacl 0.45% 1000 Ml IV 100 mls/hr DIRECT RAKESH Administration Nicotine 21 mg 10/06/19 18:00 10/06/19 18:00 Habitrol TD 21 mg QDAY RAKESH Administration Nitroglycerin 0.4 mg 10/06/19 08:02 Nitrostat SL .Q5MIN PRN Chest Pain Ondansetron HCl 4 mg 10/06/19 17:21 10/06/19 18:00 Zofran IV 4 mg Q4H PRN Administration Nausea And Vomiting Pantoprazole Sodium 40 mg 10/06/19 18:00 10/06/19 18:00 Protonix PO 40 mg QDAY RAKESH Administration Polyethylene Glycol 17 gm 10/06/19 17:22 Miralax 3350 PO QDAY PRN Constipation Triamcinolone Acetonide 1 applic 10/06/19 22:00 10/06/19 21:27 Kenalog TP 1 applic BID RAKESH Administration
[2019-10-07 07:50] LABS: Hematocrit 42.9 % (35.5-45.6); Hemoglobin 14.1 gm/dl (11.8-15.2); Mean Corpuscular HGB Conc 33 % (32-34); Mean Corpuscular Volume 93 fl (84-94); Platelet Count 144 K/mm3 (140-440); Red Blood Count 4.59 M/mm3 (3.65-5.03); Red Cell Distribution Width 14.8 % (13.2-15.2)
[2019-10-07 08:01] LABS: INR 0.95 (0.87-1.13)
[2019-10-07 08:13] LABS: Calcium 7.9 mg/dL (8.4-10.2); Chol/HDL Ratio 5.96 %
[2019-10-07] MEDS: amLODIPine 5 MG TAB PO SCH (10:10)
[2019-10-07] MEDS: ASPIRIN 325 MG TAB PO SCH (10:10)
[2019-10-07] MEDS: NICOTINE 21 MG/24 HR PATCH TD SCH (10:10)
[2019-10-07] MEDS: PANTOPRAZOLE 40 MG TAB PO SCH (10:11)
[2019-10-07] MEDS: TRIAMCINOLONE 0.1% CREAM 15 GM TP SCH ×2 (10:11→21:09)
[2019-10-07] MEDS: ONDANSETRON 4 MG/2 ML INJ IV PRN ×3 (10:19→21:08)
--- NOTE | 2019-10-07 11:19 | Consultation ---
History of Present Illness - Reason for Consult Consult date: 10/07/19 Bilateral leg pain Requesting physician: QUIN GARCIA - History of Present Illness HPI: 48-year-old gentleman with history significant for lupus nephritis, chronic venous insufficiency with history of prior lower extremity DVT/PE and PAD with a history of previous right lower extremity intervention presents with worsening bilateral lower extremity swelling and pain over the past week. The patient states that his symptoms usually resolve by staying off his feet but this was not the case. In addition the patient stated that he was having issues with shortness of breath which prompted him to present to the emergency department. The patient states his symptoms are worse with ambulation and prolonged standing. The patient currently smokes 1 pack/day and has a long smoking history. ROS: As per HPI otherwise negative PE: NAD, alert and oriented x3 Regular rate and rhythm Non-labored respirations Palpable femoral pulses bilaterally Both feet warm, significant hemosiderin deposition noted in both lower legs 2-3+ edema noted in both lower legs Venous duplex exam reviewed Plan: 48-year-old gentleman with SLE nephritis, chronic venous insufficiency and peripheral arterial disease presents with worsening leg pain and swelling Venous duplex exam demonstrates evidence of prior DVTs in both lower extremities consistent with patient's prior history We will obtain appropriate arterial studies to evaluate for evidence of significant arterial insufficiency No immediate intervention required at this time Patient should be on therapeutic anticoagulation for life but stopped due to i nsurance issues We will continue to follow and make appropriate recommendations Medications and Allergies Allergies Allergy/AdvReac Type Severity Reaction Status Date / Time morphine Allergy Hives Verified 08/06/16 16:25 tramadol Allergy Nausea Verified 10/12/17 21:14 Home Medications Medication Instructions Recorded Confirmed Last Taken Type Gabapentin [Neurontin] 600 mg PO TID 10/12/17 10/12/17 Unknown History HYDROcodone/ACETAMINOPHEN [Vicodin 5 mg PO BID 10/12/17 10/12/17 10/12/17 History HP 10-300 mg TAB] 1 Methadone [Dolophine] 10 mg PO Q8H 10/12/17 10/12/17 10/12/17 History 1 Torsemide [Demadex] 100 mg PO QDAY 10/12/17 10/12/17 Unknown History traZODone [Desyrel] 100 mg PO QHS 10/12/17 10/12/17 Unknown History Albuterol Sulfate [Proventil Hfa] 2 puff IH Q4H PRN #1 hfa.aer.ad 10/14/17 Unknown Rx Apixaban [Eliquis] 2.5 mg PO BID #60 tablet 10/14/17 Unknown Rx Aspirin 325 mg PO QDAY #30 tablet 10/14/17 Unknown Rx AtorvaSTATin [Lipitor] 20 mg PO QHS #30 tablet 10/14/17 Unknown Rx Azithromycin [Zithromax Z-SANTY] 250 mg PO QAM #1 pack 10/14/17 Unknown Rx carvediloL [Coreg] 6.25 mg PO BID #60 tablet 10/14/17 Unknown Rx lisinopriL [Zestril TAB] 5 mg PO QDAY #30 tablet 10/14/17 Unknown Rx methylPREDNISolone [Medrol Dose 4 mg PO QAM #1 pack 10/14/17 Unknown Rx Santy] Active Meds: Active Medications Acetaminophen (Tylenol) 650 mg PO Q6H PRN PRN Reason: Non Cardiac Pain or Temp>100.5 Amlodipine Besylate (Amlodipine) 5 mg PO QDAY [facility] Last Admin: 10/07/19 10:10 Dose: 5 mg Documented by: Aspirin (Aspirin) 325 mg PO QDAY [facility] Last Admin: 10/07/19 10:10 Dose: 325 mg Documented by: Atorvastatin Calcium (Lipitor) 40 mg PO QHS [facility] Last Admin: 10/06/19 21:28 Dose: 40 mg Documented by: Diphenhydramine HCl (Benadryl) 25 mg IV Q6H PRN PRN Reason: Itching Hydralazine HCl (Apresoline) 10 mg IV Q4HR PRN PRN Reason: Blood Pressure Hydromorphone HCl (Dilaudid) 1 mg IV Q4H PRN PRN Reason: Pain , Severe (7-10) Last Admin: 10/07/19 07:44 Dose: 1 mg Documented by: Heparin Sodium/Sodium Chloride (Heparin/ 0.45% Nacl-25,000 Unit/500 Ml) 25,000 unit in 500 mls @ 30 mls/hr IV TITR [facility]; Protocol Last Admin: 10/07/19 06:19 Dose: 1,500 units/hr, 30 mls/hr Documented by: Sodium Chloride (Nacl 0.45% 1000 Ml) 1,000 mls @ 100 mls/hr IV DIRECT [facility] Last Admin: 10/07/19 05:52 Dose: 100 mls/hr Documented by: Nicotine (Habitrol) 21 mg TD QDAY [facility] Last Admin: 10/07/19 10:10 Dose: 21 mg Documented by: Nitroglycerin (Nitrostat) 0.4 mg SL .Q5MIN PRN PRN Reason: Chest Pain Ondansetron HCl (Zofran) 4 mg IV Q4H PRN PRN Reason: Nausea And Vomiting Last Admin: 10/07/19 10:19 Dose: 4 mg Documented by: Pantoprazole Sodium (Protonix) 40 mg PO QDAY [facility] Last Admin: 10/07/19 10:11 Dose: 40 mg Documented by: Polyethylene Glycol (Miralax [id number]) 17 gm PO QDAY PRN PRN Reason: Constipation Triamcinolone Acetonide (Kenalog) 1 applic TP BID [facility] Last Admin: 10/07/19 10:11 Dose: 1 applic Documented by: Exam - Constitutional Vitals: Temp Pulse Resp BP Pulse Ox 98.0 F 64 20 155/80 94 10/06/19 23:18 10/07/19 10:10 10/06/19 23:18 10/07/19 10:10 10/06/19 23:18 Results - Labs CBC & Chem 7: 10/07/19 06:55 10/07/19 06:55 Labs: Abnormal lab results 10/06/19 10/07/19 Range/Units 15:07 06:55 Chloride 107.1 H (98-107) mmol/L Carbon Dioxide 18 L (22-30) mmol/L Creatinine 1.8 H (0.8-1.5) mg/dL Glucose 112 H (75-100) mg/dL Calcium 7.9 L (8.4-10.2) mg/dL Triglycerides 228 H (2-149) mg/dL LDL Cholesterol Direct 147 H (50-130) mg/dL HDL Cholesterol 33 L (40-59) mg/dL Urine Creatinine 173.7 H (0.1-20.0) mg/dL
--- NOTE | 2019-10-07 13:59 | Vascular Lab Report ---
Bilateral lower extremity arterial Doppler. HISTORY: Peripheral vascular disease. FINDINGS: Duplex Doppler evaluation of the arterial system of both lower extremities was performed wi spectral waveform analysis. Antegrade flow is present. Grayscale imaging demonstrates scattered plaque. Velocities are within normal limits. Waveforms are predominantly unremarkable other than monophasic flow at the right dorsalis pedis arter y in the left posterior tibial artery. IMPRESSION: Suspect peripheral vascular disease at the level the runoff vessels. Signer Name: Adonis Zaragoza MD Signed: 10/07/2019 1:54 PM Workstation Name: [id number]
--- NOTE | 2019-10-07 14:05 | Vascular Lab Report ---
SEVERINO Ultrasound HISTORY: leg pain. TECHNIQUE: Grayscale and color imaging performed. COMPARISON: Arterial Doppler ultrasound from earlier today FINDINGS: Right-sided SEVERINO is 1.3 and left-sided SEVERINO is 1.4 IMPRESSION: Normal ABIs. Ankle-Brachial Index (SEVERINO): * Calcified arteries > 1.4 * Normal = 0.9-1.4 * Mild PAD = 0.7-0.89 * Moderate PAD = 0.51-0.69 * Severe PAD < 0.5 Signer Name: Lance Vieira MD Signed: 10/07/2019 2:00 PM Workstation Name: [id number]
[2019-10-08 02:33] LABS: Hematocrit 45.3 % (35.5-45.6); Hemoglobin 14.7 gm/dl (11.8-15.2); Mean Corpuscular HGB Conc 33 % (32-34); Mean Corpuscular Volume 94 fl (84-94); Platelet Count 137 K/mm3 (140-440); Red Blood Count 4.84 M/mm3 (3.65-5.03); Red Cell Distribution Width 14.6 % (13.2-15.2)
[2019-10-08] MEDS: HYDROmorphone 1 MG/1 ML INJ IV PRN ×5 (02:40→22:22)
[2019-10-08] MEDS: ONDANSETRON 4 MG/2 ML INJ IV PRN ×5 (02:52→22:23)
[2019-10-08] MEDS: SODIUM CHLORIDE 0.45% 1000 ML 1,000 ML IV SCH ×2 (02:52→13:55)
[2019-10-08] MEDS: HEPARIN/ 0.45% NACL DRIP 25,000 UNIT/500 ML BAG IV SCH ×2 (02:52→18:37)
[2019-10-08 02:53] LABS: Calcium 7.8 mg/dL (8.4-10.2)
[2019-10-08] MEDS: ASPIRIN 325 MG TAB PO SCH (09:17)
[2019-10-08] MEDS: PANTOPRAZOLE 40 MG TAB PO SCH (09:17)
[2019-10-08] MEDS: amLODIPine 5 MG TAB PO SCH (09:18)
[2019-10-08] MEDS: NICOTINE 21 MG/24 HR PATCH TD SCH (09:19)
--- NOTE | 2019-10-08 10:33 | Progress Note ---
Assessment and Plan Patient has tibial arterial disease however, his symptoms are consistent with venous insufficiency. We will obtain venous ultrasound with reflux as well as ultrasound evaluation of his deep venous system. The patient will need to be placed in compression hose. He is previously tried compression hose which resulted in fluid being shifted to his thighs. The patient has not tried thigh- high compression hose. He will need to be placed on and remain on anticoagulation for life. Subjective Date of service: 10/08/19 Principal diagnosis: Leg pain Interval history: Patient with a history of lupus, multiple prior DVTs, bilateral lower extremity leg pain with discoloration of his ankles. His arterial ultrasound was within normal limits. The patient is still complaining of leg pain. Objective - Constitutional Vitals: Vital Signs - 12hr 10/08/19 10/08/19 04:50 09:18 Temperature 97.7 F Pulse Rate 72 71 Respiratory 18 Rate Blood Pressure 137/87 124/53 O2 Sat by Pulse 94 Oximetry General appearance: Present: no acute distress - EENT Eyes: EOM intact ENT: hearing intact - Neck Neck: supple, normal ROM - Respiratory Respiratory effort: normal - Breasts Breasts: deferred Extremities: abnormal Extremity abnormal: edema - Gastrointestinal General gastrointestinal: Present: deferred - Genitourinary Male genitourinary: deferred - Psychiatric Psychiatric: appropriate mood/affect, cooperative - Labs CBC & Chem 7: 10/08/19 02:08 10/08/19 02:08 Labs: Abnormal lab results 10/07/19 10/08/19 10/08/19 Range/Units 14:59 02:08 02:08 Plt Count 137 L (140-440) K/mm3 Heparin Anti-Xa Level 1.08 H (0.3-0.7) U.I./ml Calcium 7.8 L (8.4-10.2) mg/dL 10/08/19 Range/Units 02:08 Plt Count (140-440) K/mm3 Heparin Anti-Xa Level 0.22 L (0.3-0.7) U.I./ml Calcium (8.4-10.2) mg/dL Medications & Allergies - Medications Allergies/Adverse Reactions: Allergies morphine Allergy (Verified 08/06/16 16:25) Hives tramadol Allergy (Verified 10/12/17 21:14) Nausea Home Medications: Home Medications Medication Instructions Recorded Confirmed Last Taken Type Gabapentin [Neurontin] 600 mg PO TID 10/12/17 10/12/17 Unknown History HYDROcodone/ACETAMINOPHEN [Vicodin 5 mg PO BID 10/12/17 10/12/17 10/12/17 History HP 10-300 mg TAB] 1 Methadone [Dolophine] 10 mg PO Q8H 10/12/17 10/12/17 10/12/17 History 1 Torsemide [Demadex] 100 mg PO QDAY 10/12/17 10/12/17 Unknown History traZODone [Desyrel] 100 mg PO QHS 10/12/17 10/12/17 Unknown History Albuterol Sulfate [Proventil Hfa] 2 puff IH Q4H PRN #1 hfa.aer.ad 10/14/17 Unknown Rx Apixaban [Eliquis] 2.5 mg PO BID #60 tablet 10/14/17 Unknown Rx Aspirin 325 mg PO QDAY #30 tablet 10/14/17 Unknown Rx AtorvaSTATin [Lipitor] 20 mg PO QHS #30 tablet 10/14/17 Unknown Rx Azithromycin [Zithromax Z-SANTY] 250 mg PO QAM #1 pack 10/14/17 Unknown Rx carvediloL [Coreg] 6.25 mg PO BID #60 tablet 10/14/17 Unknown Rx lisinopriL [Zestril TAB] 5 mg PO QDAY #30 tablet 10/14/17 Unknown Rx methylPREDNISolone [Medrol Dose 4 mg PO QAM #1 pack 10/14/17 Unknown Rx Santy] Active Medications: Generic Name Dose Route Start Last Admin Trade Name Freq PRN Reason Stop Dose Admin Acetaminophen 650 mg 10/06/19 17:21 Tylenol PO Q6H PRN Non Cardiac Pain or Temp>100.5 Amlodipine Besylate 5 mg 10/06/19 18:00 10/08/19 09:18 Amlodipine PO 5 mg QDAY RAKESH Administration Aspirin 325 mg 10/07/19 10:00 10/08/19 09:17 Aspirin PO 325 mg QDAY RAKESH Administration Atorvastatin Calcium 40 mg 10/06/19 22:00 10/07/19 21:09 Lipitor PO 40 mg QHS RAKESH Administration Diphenhydramine HCl 25 mg 10/06/19 17:25 Benadryl IV Q6H PRN Itching Hydralazine HCl 10 mg 10/06/19 17:22 Apresoline IV Q4HR PRN Blood Pressure Hydromorphone HCl 1 mg 10/06/19 11:45 10/08/19 09:18 Dilaudid IV 1 mg Q4H PRN Administration Pain , Severe (7-10) Heparin Sodium/Sodium Chloride 25,000 unit in 500 mls @ 30 mls/hr 10/06/19 09:00 10/08/19 03:04 Heparin/ 0.45% Nacl-25,000 Unit/500 Ml IV 1,400 units/hr TITR RAKESH 28 mls/hr Titration Protocol 1,500 UNITS/HR Sodium Chloride 1,000 mls @ 100 mls/hr 10/06/19 18:00 10/08/19 02:52 Nacl 0.45% 1000 Ml IV 100 mls/hr DIRECT RAKESH Administration Nicotine 21 mg 10/06/19 18:00 10/08/19 09:19 Habitrol TD 21 mg QDAY RAKESH Administration Nitroglycerin 0.4 mg 10/06/19 08:02 Nitrostat SL .Q5MIN PRN Chest Pain Ondansetron HCl 4 mg 10/06/19 17:21 10/08/19 09:17 Zofran IV 4 mg Q4H PRN Administration Nausea And Vomiting Pantoprazole Sodium 40 mg 10/06/19 18:00 10/08/19 09:17 Protonix PO 40 mg QDAY RAKESH Administration Polyethylene Glycol 17 gm 10/06/19 17:22 Miralax 3350 PO QDAY PRN Constipation Triamcinolone Acetonide 1 applic 10/06/19 22:00 10/07/19 21:09 Kenalog TP 1 applic BID RAKESH Administration
--- NOTE | 2019-10-08 11:31 | Progress Note ---
Assessment and Plan Assessment and plan: Patient is a 48 yo AA man with history of hypertension, PAD s/p right leg stent placement, tobacco dependency, bilateral leg DVT s/p IVC filter, bilateral PE off Eliquis since January 2019 due to loss of disability insurance, SLE with nephritis s/p Chemotherapy and HD who presents to [facility] ED with severe throbbing constant but varying intensity radiating from mid thigh to ankle bilaterally progressing getting worse over 1 week without aggravating or relieving factors associated with SOB, substernal mid chest pressure, 15 lb weight gain and nausea without abdomial pains or vomiting. There is no headache, neck pain, fever, chills, cough. He reports not taking his medication since last year and not foll owing up with any doctor. * V/Q scan IMPRESSION: VQ scan is intermediate probability for pulmonary embolus. * Bilateral Venous Leg doppler IMPRESSION: 1. Chronic DVTs are noted bilaterally. * 2v CXR IMPRESSION: 1. No acute findings. No interval change. Chest pains Immediate V/Q scan, high suspicion for PE: treat with anticoagulation, eventually Eliquis, get ECHO BLE pains due to Chronic BLE DVT: restart a/c ARF, vasomotor nephropathy, last Cr in our system was 0.9 on 05/18/2018, now 2.0: treat with IVF, monitor bmp closely Tobacco dependency: advise to stop smoking, offered nicotine patch PAD: encourage to stop smoking, consult Vascular surgery, ?if ble pain is PAD vs DVT related and treatment options. 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 benadryl Accelerated hypertension: iv hydrazine prn, start Norvasc Hypomagnesemia: replete and monitor levels DVT ppx therapeutic a/c 10/07/2019: Admitted yesterday, legs still painful at rest, await Vascular surgery evaluation, still being monitored closely on heparin IV drip. Will get XR for the nausea which he had on admission, will get ABD XRAY; labs pending for today also History Interval history: Patient seen and examined at the bedside Medical records reviewed Patient complains of some body pains and asking for pain medications Feels slightly better No new complaints Alert awake oriented vital signs reviewed Hospitalist Physical - Constitutional Vitals: Temp Pulse Resp BP Pulse Ox 97.7 F 71 18 124/53 94 10/08/19 04:50 10/08/19 09:18 10/08/19 04:50 10/08/19 09:18 10/08/19 04:50 General appearance: Present: no acute distress, well-nourished, obese - EENT Eyes: Present: PERRL, EOM intact - Neck Neck: Present: supple, normal ROM - Respiratory Respiratory effort: normal Respiratory: bilateral: diminished, negative: rales, rhonchi, wheezing - Cardiovascular Rhythm: regular Heart Sounds: Present: S1 & S2 - Extremities Extremities: no ischemia, No edema - Abdominal General gastrointestinal: soft, non-tender, non-distended, normal bowel sounds - Integumentary Integumentary: Present: clear, warm - Psychiatric Psychiatric: appropriate mood/affect, cooperative - Neurologic Neurologic: CNII-XII intact, moves all extremities Results - Labs CBC & Chem 7: 10/08/19 02:08 10/08/19 02:08 Labs: Laboratory Last Values WBC 5.1 K/mm3 (4.5-11.0) 10/08/19 02:08 RBC 4.84 M/mm3 (3.65-5.03) 10/08/19 02:08 Hgb 14.7 gm/dl (11.8-15.2) 10/08/19 02:08 Hct 45.3 % (35.5-45.6) 10/08/19 02:08 MCV 94 fl (84-94) 10/08/19 02:08 MCH 30 pg (28-32) 10/08/19 02:08 MCHC 33 % (32-34) 10/08/19 02:08 RDW 14.6 % (13.2-15.2) 10/08/19 02:08 Plt Count 137 K/mm3 (140-440) L 10/08/19 02:08 Lymph % (Auto) 29.4 % (13.4-35.0) 10/06/19 03:18 [place] % (Auto) 8.2 % (0.0-7.3) H 10/06/19 03:18 Eos % (Auto) 1.6 % (0.0-4.3) 10/06/19 03:18 Baso % (Auto) 0.8 % (0.0-1.8) 10/06/19 03:18 Lymph # 1.9 K/mm3 (1.2-5.4) 10/06/19 03:18 [place] # 0.5 K/mm3 (0.0-0.8) 10/06/19 03:18 Eos # 0.1 K/mm3 (0.0-0.4) 10/06/19 03:18 Baso # 0.0 K/mm3 (0.0-0.1) 10/06/19 03:18 Seg Neutrophils % 60.0 % (40.0-70.0) 10/06/19 03:18 Seg Neutrophils # 3.8 K/mm3 (1.8-7.7) 10/06/19 03:18 PT 12.8 Sec. (12.2-14.9) 10/07/19 06:55 INR 0.95 (0.87-1.13) 10/07/19 06:55 APTT 27.0 Sec. (24.2-36.6) 10/06/19 08:20 Heparin Anti-Xa Level 0.42 U.I./ml (0.3-0.7) 10/08/19 09:37 Sodium 139 mmol/L (137-145) 10/08/19 02:08 Potassium 3.8 mmol/L (3.6-5.0) 10/08/19 02:08 Chloride 106.7 mmol/L (98-107) 10/08/19 02:08 Carbon Dioxide 22 mmol/L (22-30) 10/08/19 02:08 Anion Gap 14 mmol/L 10/08/19 02:08 BUN 13 mg/dL (9-20) 10/08/19 02:08 Creatinine 1.5 mg/dL (0.8-1.5) 10/08/19 02:08 Estimated GFR 60 ml/min 10/08/19 02:08 BUN/Creatinine Ratio 9 % 10/08/19 02:08 Glucose 96 mg/dL (75-100) 10/08/19 02:08 Uric Acid 6.4 mg/dL (3.5-7.6) 10/06/19 08:20 Calcium 7.8 mg/dL (8.4-10.2) L 10/08/19 02:08 Magnesium 1.90 mg/dL (1.7-2.3) 10/07/19 06:55 Total Bilirubin 0.30 mg/dL (0.1-1.2) 10/06/19 08:20 Direct Bilirubin < 0.2 mg/dL (0-0.2) 10/06/19 08:20 AST 15 units/L (5-40) 10/06/19 08:20 ALT 9 units/L (7-56) 10/06/19 08:20 Alkaline Phosphatase 67 units/L (35-129) 10/06/19 08:20 Total Creatine Kinase 456 units/L (55-170) H 10/06/19 08:20 Troponin T < 0.010 ng/mL (0.00-0.029) 10/06/19 03:18 NT-Pro-B Natriuret Pep 231.6 pg/mL (0-900) 10/06/19 08:20 Total Protein 6.5 g/dL (6.3-8.2) 10/06/19 08:20 Albumin 3.1 g/dL (3.9-5) L 10/06/19 08:20 Albumin/Globulin Ratio 0.9 % 10/06/19 08:20 Triglycerides 228 mg/dL (2-149) H 10/07/19 06:55 Cholesterol 197 mg/dL (50-199) 10/07/19 06:55 LDL Cholesterol Direct 147 mg/dL (50-130) H 10/07/19 06:55 HDL Cholesterol 33 mg/dL (40-59) L 10/07/19 06:55 Cholesterol/HDL Ratio 5.96 % 10/07/19 06:55 TSH 2.120 mlU/mL (0.270-4.200) 10/06/19 08:20 Urine Color Yellow (Yellow) 10/06/19 15:07 Urine Turbidity Clear (Clear) 10/06/19 15:07 Urine pH 6.0 (5.0-7.0) 10/06/19 15:07 Ur Specific [place] 1.020 (1.003-1.030) 10/06/19 15:07 Urine Protein >2000 mg dl mg/dL (Negative) 10/06/19 15:07 Urine Glucose (UA) Neg mg/dL (Negative) 10/06/19 15:07 Urine Ketones Neg mg/dL (Negative) 10/06/19 15:07 Urine Blood Sm (Negative) 10/06/19 15:07 Urine Nitrite Neg (Negative) 10/06/19 15:07 Urine Bilirubin Neg (Negative) 10/06/19 15:07 Urine Urobilinogen < 2.0 mg/dL (<2.0) 10/06/19 15:07 Ur Leukocyte Esterase Neg (Negative) 10/06/19 15:07 Urine WBC (Auto) 1.0 /HPF (0.0-6.0) 10/06/19 15:07 Urine RBC (Auto) 3.0 /HPF (0.0-6.0) 10/06/19 15:07 Urine Mucus Few /HPF 10/06/19 15:07 Urine Creatinine 173.7 mg/dL (0.1-20.0) H 10/06/19 15:07 Urine Sodium 116 mmol/L 10/06/19 15:07 Paige/IV: Voiding Method Toilet IV Catheter Type [Right Chest] Infusaport Active Medications - Current Medications Current Medications: Generic Name Dose Route Start Last Admin Trade Name Freq PRN Reason Stop Dose Admin Acetaminophen 650 mg 10/06/19 17:21 Tylenol PO Q6H PRN Non Cardiac Pain or Temp>100.5 Amlodipine Besylate 5 mg 10/06/19 18:00 10/08/19 09:18 Amlodipine PO 5 mg QDAY RAKESH Administration Aspirin 325 mg 10/07/19 10:00 10/08/19 09:17 Aspirin PO 325 mg QDAY RAKESH Administration Atorvastatin Calcium 40 mg 10/06/19 22:00 10/07/19 21:09 Lipitor PO 40 mg QHS RAKESH Administration Diphenhydramine HCl 25 mg 10/06/19 17:25 Benadryl IV Q6H PRN Itching Hydralazine HCl 10 mg 10/06/19 17:22 Apresoline IV Q4HR PRN Blood Pressure Hydromorphone HCl 1 mg 10/06/19 11:45 10/08/19 09:18 Dilaudid IV 1 mg Q4H PRN Administration Pain , Severe (7-10) Heparin Sodium/Sodium Chloride 25,000 unit in 500 mls @ 30 mls/hr 10/06/19 09:00 10/08/19 03:04 Heparin/ 0.45% Nacl-25,000 Unit/500 Ml IV 1,400 units/hr TITR RAKESH 28 mls/hr Titration Protocol 1,500 UNITS/HR Sodium Chloride 1,000 mls @ 100 mls/hr 10/06/19 18:00 10/08/19 02:52 Nacl 0.45% 1000 Ml IV 100 mls/hr DIRECT RAKESH Administration Nicotine 21 mg 10/06/19 18:00 10/08/19 09:19 Habitrol TD 21 mg QDAY RAKESH Administration Nitroglycerin 0.4 mg 10/06/19 08:02 Nitrostat SL .Q5MIN PRN Chest Pain Ondansetron HCl 4 mg 10/06/19 17:21 10/08/19 09:17 Zofran IV 4 mg Q4H PRN Administration Nausea And Vomiting Pantoprazole Sodium 40 mg 10/06/19 18:00 10/08/19 09:17 Protonix PO 40 mg QDAY RAKESH Administration Polyethylene Glycol 17 gm 10/06/19 17:22 Miralax 3350 PO QDAY PRN Constipation Triamcinolone Acetonide 1 applic 10/06/19 22:00 10/07/19 21:09 Kenalog TP 1 applic BID RAKESH Administration
[2019-10-08] MEDS: TRIAMCINOLONE 0.1% CREAM 15 GM TP SCH ×2 (13:53→22:21)
[2019-10-09] MEDS: ONDANSETRON 4 MG/2 ML INJ IV PRN ×2 (02:44→07:21)
[2019-10-09] MEDS: HYDROmorphone 1 MG/1 ML INJ IV PRN ×2 (02:44→07:21)
[2019-10-09] MEDS: amLODIPine 5 MG TAB PO SCH (09:42)
[2019-10-09] MEDS: ASPIRIN 325 MG TAB PO SCH (09:42)
[2019-10-09] MEDS: PANTOPRAZOLE 40 MG TAB PO SCH (09:42)
[2019-10-09] MEDS: NICOTINE 21 MG/24 HR PATCH TD SCH (09:43)
[2019-10-09] MEDS: TRIAMCINOLONE 0.1% CREAM 15 GM TP SCH ×2 (09:43→21:31)
[2019-10-09] MEDS: HEPARIN/ 0.45% NACL DRIP 25,000 UNIT/500 ML BAG IV SCH (11:22)
--- NOTE | 2019-10-09 11:33 | Progress Note ---
Assessment and Plan Patient with a history of DVTs, venous hypertension of his lower extremities as well as peripheral arterial disease. His peripheral arterial disease is stable. Awaiting evaluation with ultrasound of his venous disease. The patient will need to be placed on anticoagulation for life. He will likely require therapy for his venous system however, this can be performed as an outpatient. If the patient is to be discharged, he will need to continue to wear thigh-high ADAIR hose. Subjective Date of service: 10/09/19 Principal diagnosis: Leg pain Interval history: Patient still complaining of bilateral lower extremity leg pain. His venous ultrasounds have not yet been done. Arterial disease is stable and not contributing to the patient's leg pain. Objective - Constitutional Vitals: Vital Signs - 12hr 10/09/19 10/09/19 10/09/19 05:07 09:00 09:42 Temperature 98.6 F Pulse Rate 67 74 Respiratory 16 16 Rate Blood Pressure 156/77 153/80 O2 Sat by Pulse 89 Oximetry General appearance: Present: no acute distress - EENT Eyes: EOM intact ENT: hearing intact - Neck Neck: supple - Respiratory Respiratory effort: normal Extremity abnormal: edema - Gastrointestinal General gastrointestinal: Present: deferred Rectal Exam: deferred - Genitourinary Male genitourinary: deferred - Psychiatric Psychiatric: cooperative - Labs CBC & Chem 7: 10/08/19 02:08 10/08/19 02:08 Medications & Allergies - Medications Allergies/Adverse Reactions: Allergies morphine Allergy (Verified 08/06/16 16:25) Hives tramadol Allergy (Verified 10/12/17 21:14) Nausea Home Medications: Home Medications Medication Instructions Recorded Confirmed Last Taken Type HYDROcodone/ACETAMINOPHEN [Vicodin 5 mg PO BID PRN 10/12/17 10/08/19 10/12/17 History HP 10-300 mg TAB] 1 Methadone [Dolophine] 10 mg PO Q8H 10/12/17 10/08/19 10/12/17 History 1 Torsemide [Demadex] 100 mg PO QDAY 10/12/17 10/08/19 Unknown History traZODone [Desyrel] 100 mg PO QHS 10/12/17 10/08/19 Unknown History Albuterol Sulfate [Proventil Hfa] 2 puff IH Q4H PRN #1 hfa.aer.ad 10/14/17 10/08/19 Unknown Rx Apixaban [Eliquis] 2.5 mg PO BID #60 tablet 10/14/17 10/08/19 Unknown Rx AtorvaSTATin [Lipitor] 20 mg PO QHS #30 tablet 10/14/17 10/08/19 Unknown Rx lisinopriL [Zestril TAB] 5 mg PO QDAY #30 tablet 10/14/17 10/08/19 Unknown Rx Active Medications: Generic Name Dose Route Start Last Admin Trade Name Freq PRN Reason Stop Dose Admin Acetaminophen 650 mg 10/06/19 17:21 Tylenol PO Q6H PRN Non Cardiac Pain or Temp>100.5 Amlodipine Besylate 5 mg 10/06/19 18:00 10/09/19 09:42 Amlodipine PO 5 mg QDAY RAKESH Administration Aspirin 325 mg 10/07/19 10:00 10/09/19 09:42 Aspirin PO 325 mg QDAY RAKESH Administration Atorvastatin Calcium 40 mg 10/06/19 22:00 10/08/19 22:23 Lipitor PO 40 mg QHS RAKESH Administration Diphenhydramine HCl 25 mg 10/06/19 17:25 Benadryl IV Q6H PRN Itching Hydralazine HCl 10 mg 10/06/19 17:22 Apresoline IV Q4HR PRN Blood Pressure Hydromorphone HCl 1 mg 10/06/19 11:45 10/09/19 07:21 Dilaudid IV 1 mg Q4H PRN Administration Pain , Severe (7-10) Heparin Sodium/Sodium Chloride 25,000 unit in 500 mls @ 30 mls/hr 10/06/19 09:00 10/08/19 18:37 Heparin/ 0.45% Nacl-25,000 Unit/500 Ml IV 1,400 units/hr TITR RAKESH 28 mls/hr Administration Protocol 1,500 UNITS/HR Sodium Chloride 1,000 mls @ 100 mls/hr 10/06/19 18:00 10/08/19 13:55 Nacl 0.45% 1000 Ml IV 100 mls/hr DIRECT RAEKSH Administration Nicotine 21 mg 10/06/19 18:00 10/09/19 09:43 Habitrol TD 21 mg QDAY RAKESH Administration Nitroglycerin 0.4 mg 10/06/19 08:02 Nitrostat SL .Q5MIN PRN Chest Pain Ondansetron HCl 4 mg 10/06/19 17:21 10/09/19 07:21 Zofran IV 4 mg Q4H PRN Administration Nausea And Vomiting Pantoprazole Sodium 40 mg 10/06/19 18:00 10/09/19 09:42 Protonix PO 40 mg QDAY RAKESH Administration Polyethylene Glycol 17 gm 10/06/19 17:22 Miralax 3350 PO QDAY PRN Constipation Triamcinolone Acetonide 1 applic 10/06/19 22:00 10/09/19 09:43 Kenalog TP 1 applic BID RAKESH Administration
--- NOTE | 2019-10-09 12:03 | Progress Note ---
Assessment and Plan Assessment and plan: Patient is a 48 yo AA man with history of hypertension, PAD s/p right leg stent placement, tobacco dependency, bilateral leg DVT s/p IVC filter, bilateral PE off Eliquis since January 2019 due to loss of disability insurance, SLE with nephritis s/p Chemotherapy and HD who presents to [facility] ED with severe throbbing constant but varying intensity radiating from mid thigh to ankle bilaterally progressing getting worse over 1 week without aggravating or relieving factors associated with SOB, substernal mid chest pressure, 15 lb weight gain and nausea without abdomial pains or vomiting. There is no headache, neck pain, fever, chills, cough. He reports not taking his medication since last year and not foll owing up with any doctor. * V/Q scan IMPRESSION: VQ scan is intermediate probability for pulmonary embolus. * Bilateral Venous Leg doppler IMPRESSION: 1. Chronic DVTs are noted bilaterally. * 2v CXR IMPRESSION: 1. No acute findings. No interval change. --Chest pains Immediate V/Q scan, high suspicion for PE: Continue heparin drip, vascular following, eventually Eliquis, get ECHO --BLE pains due to Chronic BLE DVT: on Heparin drip, transition to Eliquis and vascular work-up is completed Vascular recommend and advice the patient to wear thigh-high ADAIR hose all the time And also recommend anticoagulation for LIFE. Follow ultrasound venous system lower extremities and abdomen --Peripheral arterial disease: Stable, vascular following advised smoking cessation, --Acute kidney injury/ vasomotor nephropathy, monitor renal function, avoid nephrotoxins. Creatinine back to baseline normal range Creatinine 2.0-1.8-1.5, closely monitor --Ongoing tobacco use: advise to smoking cessation, nicotine patch as needed --Dymorphic eczema on back of left hand and big toe: topical steroid cream. benadryl --Accelerated hypertension: iv hydrazine prn, start Norvasc --Hypomagnesemia: replete and monitor levels --DVT ppx therapeutic a/c Closely monitor the patient and adjust management as needed Plan of care reviewed with the patient and his nurse 10/07/2019: Admitted yesterday, legs still painful at rest, await Vascular surgery evaluation, still being monitored closely on heparin IV drip. Will get XR for the nausea which he had on admission, will get ABD XRAY; labs pending for today also History Interval history: Patient seen and examined at the bedside in his room Patient's chart, medications, consultants evaluation and other medical records reviewed Patient complains of bilateral lower extremity pain and back pain Asked for more pain medications Alert awake oriented Mild distress Vital signs reviewed Hospitalist Physical - Constitutional Vitals: Temp Pulse Resp BP Pulse Ox 98.6 F 74 16 153/80 89 10/09/19 05:07 10/09/19 09:42 10/09/19 09:00 10/09/19 09:42 10/09/19 05:07 General appearance: Present: no acute distress, well-nourished, obese - EENT Eyes: Present: PERRL, EOM intact - Neck Neck: Present: supple, normal ROM - Respiratory Respiratory effort: normal Respiratory: bilateral: diminished, negative: rales, rhonchi, wheezing - Cardiovascular Rhythm: regular Heart Sounds: Present: S1 & S2 - Extremities Extremities: abnormal (Chronic DVT) - Abdominal General gastrointestinal: soft, non-tender, non-distended, normal bowel sounds - Integumentary Integumentary: Present: clear, warm - Psychiatric Psychiatric: appropriate mood/affect, cooperative - Neurologic Neurologic: moves all extremities Results - Labs CBC & Chem 7: 10/08/19 02:08 10/08/19 02:08 Labs: Laboratory Last Values WBC 5.1 K/mm3 (4.5-11.0) 10/08/19 02:08 RBC 4.84 M/mm3 (3.65-5.03) 10/08/19 02:08 Hgb 14.7 gm/dl (11.8-15.2) 10/08/19 02:08 Hct 45.3 % (35.5-45.6) 10/08/19 02:08 MCV 94 fl (84-94) 10/08/19 02:08 MCH 30 pg (28-32) 10/08/19 02:08 MCHC 33 % (32-34) 10/08/19 02:08 RDW 14.6 % (13.2-15.2) 10/08/19 02:08 Plt Count 137 K/mm3 (140-440) L 10/08/19 02:08 Lymph % (Auto) 29.4 % (13.4-35.0) 10/06/19 03:18 [place] % (Auto) 8.2 % (0.0-7.3) H 10/06/19 03:18 Eos % (Auto) 1.6 % (0.0-4.3) 10/06/19 03:18 Baso % (Auto) 0.8 % (0.0-1.8) 10/06/19 03:18 Lymph # 1.9 K/mm3 (1.2-5.4) 10/06/19 03:18 [place] # 0.5 K/mm3 (0.0-0.8) 10/06/19 03:18 Eos # 0.1 K/mm3 (0.0-0.4) 10/06/19 03:18 Baso # 0.0 K/mm3 (0.0-0.1) 10/06/19 03:18 Seg Neutrophils % 60.0 % (40.0-70.0) 10/06/19 03:18 Seg Neutrophils # 3.8 K/mm3 (1.8-7.7) 10/06/19 03:18 PT 12.8 Sec. (12.2-14.9) 10/07/19 06:55 INR 0.95 (0.87-1.13) 10/07/19 06:55 APTT 27.0 Sec. (24.2-36.6) 10/06/19 08:20 Heparin Anti-Xa Level 0.51 U.I./ml (0.3-0.7) 10/09/19 10:04 Sodium 139 mmol/L (137-145) 10/08/19 02:08 Potassium 3.8 mmol/L (3.6-5.0) 10/08/19 02:08 Chloride 106.7 mmol/L (98-107) 10/08/19 02:08 Carbon Dioxide 22 mmol/L (22-30) 10/08/19 02:08 Anion Gap 14 mmol/L 10/08/19 02:08 BUN 13 mg/dL (9-20) 10/08/19 02:08 Creatinine 1.5 mg/dL (0.8-1.5) 10/08/19 02:08 Estimated GFR 60 ml/min 10/08/19 02:08 BUN/Creatinine Ratio 9 % 10/08/19 02:08 Glucose 96 mg/dL (75-100) 10/08/19 02:08 Uric Acid 6.4 mg/dL (3.5-7.6) 10/06/19 08:20 Calcium 7.8 mg/dL (8.4-10.2) L 10/08/19 02:08 Magnesium 1.90 mg/dL (1.7-2.3) 10/07/19 06:55 Total Bilirubin 0.30 mg/dL (0.1-1.2) 10/06/19 08:20 Direct Bilirubin < 0.2 mg/dL (0-0.2) 10/06/19 08:20 AST 15 units/L (5-40) 10/06/19 08:20 ALT 9 units/L (7-56) 10/06/19 08:20 Alkaline Phosphatase 67 units/L (35-129) 10/06/19 08:20 Total Creatine Kinase 456 units/L (55-170) H 10/06/19 08:20 Troponin T < 0.010 ng/mL (0.00-0.029) 10/06/19 03:18 NT-Pro-B Natriuret Pep 231.6 pg/mL (0-900) 10/06/19 08:20 Total Protein 6.5 g/dL (6.3-8.2) 10/06/19 08:20 Albumin 3.1 g/dL (3.9-5) L 10/06/19 08:20 Albumin/Globulin Ratio 0.9 % 10/06/19 08:20 Triglycerides 228 mg/dL (2-149) H 10/07/19 06:55 Cholesterol 197 mg/dL (50-199) 10/07/19 06:55 LDL Cholesterol Direct 147 mg/dL (50-130) H 10/07/19 06:55 HDL Cholesterol 33 mg/dL (40-59) L 10/07/19 06:55 Cholesterol/HDL Ratio 5.96 % 10/07/19 06:55 TSH 2.120 mlU/mL (0.270-4.200) 10/06/19 08:20 Urine Color Yellow (Yellow) 10/06/19 15:07 Urine Turbidity Clear (Clear) 10/06/19 15:07 Urine pH 6.0 (5.0-7.0) 10/06/19 15:07 Ur Specific [place] 1.020 (1.003-1.030) 10/06/19 15:07 Urine Protein >2000 mg dl mg/dL (Negative) 10/06/19 15:07 Urine Glucose (UA) Neg mg/dL (Negative) 10/06/19 15:07 Urine Ketones Neg mg/dL (Negative) 10/06/19 15:07 Urine Blood Sm (Negative) 10/06/19 15:07 Urine Nitrite Neg (Negative) 10/06/19 15:07 Urine Bilirubin Neg (Negative) 10/06/19 15:07 Urine Urobilinogen < 2.0 mg/dL (<2.0) 10/06/19 15:07 Ur Leukocyte Esterase Neg (Negative) 10/06/19 15:07 Urine WBC (Auto) 1.0 /HPF (0.0-6.0) 10/06/19 15:07 Urine RBC (Auto) 3.0 /HPF (0.0-6.0) 10/06/19 15:07 Urine Mucus Few /HPF 10/06/19 15:07 Urine Creatinine 173.7 mg/dL (0.1-20.0) H 10/06/19 15:07 Urine Sodium 116 mmol/L 10/06/19 15:07 Paige/IV: Voiding Method Toilet IV Catheter Type [Left Hand] Peripheral IV IV Catheter Type [Right Chest] IVAD / Port Active Medications - Current Medications Current Medications: Generic Name Dose Route Start Last Admin Trade Name Freq PRN Reason Stop Dose Admin Acetaminophen 650 mg 10/06/19 17:21 Tylenol PO Q6H PRN Non Cardiac Pain or Temp>100.5 Amlodipine Besylate 5 mg 10/06/19 18:00 10/09/19 09:42 Amlodipine PO 5 mg QDAY RAKESH Administration Aspirin 325 mg 10/07/19 10:00 10/09/19 09:42 Aspirin PO 325 mg QDAY RAKESH Administration Atorvastatin Calcium 40 mg 10/06/19 22:00 10/08/19 22:23 Lipitor PO 40 mg QHS RAKESH Administration Diphenhydramine HCl 25 mg 10/06/19 17:25 Benadryl IV Q6H PRN Itching Hydralazine HCl 10 mg 10/06/19 17:22 Apresoline IV Q4HR PRN Blood Pressure Hydromorphone HCl 1 mg 10/06/19 11:45 10/09/19 07:21 Dilaudid IV 1 mg Q4H PRN Administration Pain , Severe (7-10) Heparin Sodium/Sodium Chloride 25,000 unit in 500 mls @ 30 mls/hr 10/06/19 09:00 10/09/19 11:22 Heparin/ 0.45% Nacl-25,000 Unit/500 Ml IV 1,400 units/hr TITR RAKESH 28 mls/hr Administration Protocol 1,500 UNITS/HR Sodium Chloride 1,000 mls @ 100 mls/hr 10/06/19 18:00 10/08/19 13:55 Nacl 0.45% 1000 Ml IV 100 mls/hr DIRECT RAKESH Administration Nicotine 21 mg 10/06/19 18:00 10/09/19 09:43 Habitrol TD 21 mg QDAY RAKESH Administration Nitroglycerin 0.4 mg 10/06/19 08:02 Nitrostat SL .Q5MIN PRN Chest Pain Ondansetron HCl 4 mg 10/06/19 17:21 10/09/19 07:21 Zofran IV 4 mg Q4H PRN Administration Nausea And Vomiting Pantoprazole Sodium 40 mg 10/06/19 18:00 10/09/19 09:42 Protonix PO 40 mg QDAY RAKESH Administration Polyethylene Glycol 17 gm 10/06/19 17:22 Miralax 3350 PO QDAY PRN Constipation Triamcinolone Acetonide 1 applic 10/06/19 22:00 10/09/19 09:43 Kenalog TP 1 applic BID RAKESH Administration
[2019-10-09] MEDS: oxyCODONE /ACETAMINOPHEN 5-325MG TAB PO PRN ×2 (13:03→19:38)
--- NOTE | 2019-10-09 20:00 | Event Note ---
Date: 10/09/19 R IJ port nonfunctional. CXR demonstrates clear kink at the venotomy insertion site. May best benefit from left IJ port placement and right IJ port removal. NPO after MN except meds.
[2019-10-09] MEDS: hydrALAZINE 25 MG TAB PO SCH (21:32)
[2019-10-09] MEDS: diphenhydrAMINE 50 MG/ML VIAL IV PRN (21:38)
[2019-10-10] MEDS: oxyCODONE /ACETAMINOPHEN 5-325MG TAB PO PRN ×3 (03:02→18:24)
[2019-10-10 05:05] LABS: Hematocrit 44.3 % (35.5-45.6); Hemoglobin 14.8 gm/dl (11.8-15.2)
[2019-10-10] MEDS: hydrALAZINE 20 MG/1 ML INJ IV PRN ×2 (06:01→08:15)
[2019-10-10] MEDS: hydrALAZINE 25 MG TAB PO SCH ×3 (06:05→21:29)
[2019-10-10] MEDS: HEPARIN/ 0.45% NACL DRIP 25,000 UNIT/500 ML BAG IV SCH (06:38)
--- NOTE | 2019-10-10 07:43 | Progress Note ---
Assessment and Plan Assessment and plan: Patient is a 48 yo AA man with history of hypertension, PAD s/p right leg stent placement, tobacco dependency, bilateral leg DVT s/p IVC filter, bilateral PE off Eliquis since January 2019 due to loss of disability insurance, SLE with nephritis s/p Chemotherapy and HD who presents to [facility] ED with severe throbbing constant but varying intensity radiating from mid thigh to ankle bilaterally progressing getting worse over 1 week without aggravating or relieving factors associated with SOB, substernal mid chest pressure, 15 lb weight gain and nausea without abdomial pains or vomiting. There is no headache, neck pain, fever, chills, cough. He reports not taking his medication since last year and not foll owing up with any doctor. * V/Q scan IMPRESSION: VQ scan is intermediate probability for pulmonary embolus. * Bilateral Venous Leg doppler IMPRESSION: 1. Chronic DVTs are noted bilaterally. * 2v CXR IMPRESSION: 1. No acute findings. No interval change. --Chest pains , V/Q scan, high suspicion for PE: Hold heparin drip for vascular procedure, eventually transition to Eliquis, get ECHO --BLE pains due to Chronic BLE DVT: on Heparin drip, transition to Eliquis when vascular work-up is completed Vascular recommend and advice the patient to wear thigh-high ADAIR hose all the time And also recommend anticoagulation for LIFE. Follow ultrasound venous system lower extremities and abdomen --Peripheral arterial disease: Stable, vascular following advised smoking cessation, --Acute kidney injury/ vasomotor nephropathy, monitor renal function, avoid nephrotoxins. Creatinine back to baseline normal range Creatinine 2.0-1.8-1.5, closely monitor --Ongoing tobacco use: advise to smoking cessation, nicotine patch as needed --Dymorphic eczema on back of left hand and big toe: topical steroid cream. benadryl --Accelerated hypertension: iv hydrazine prn, start Norvasc --Hypomagnesemia: replete and monitor levels --DVT ppx therapeutic a/c Closely monitor the patient and adjust management as needed Plan of care reviewed with the patient and his nurse History Interval history: Patient is scheduled for left IJ port placement and right IJ port removal. Patient is n.p.o. Vascular studies; VL ao/ivc/iliac duplex/and lower extremity venous Doppler bilateral studies requested Patient complains of bilateral leg pain Denies any shortness of breath or chest pain Vital signs reviewed Alert awake oriented in mild distress Hospitalist Physical - Constitutional Vitals: Temp Pulse Resp BP Pulse Ox 98.1 F 75 16 170/85 89 10/10/19 04:41 10/10/19 04:41 10/10/19 04:41 10/10/19 04:41 10/10/19 04:41 General appearance: Present: no acute distress, well-nourished, obese - EENT Eyes: Present: PERRL, EOM intact - Neck Neck: Present: supple, normal ROM - Respiratory Respiratory effort: normal Respiratory: bilateral: diminished, negative: rales, rhonchi, wheezing - Cardiovascular Rhythm: regular Heart Sounds: Present: S1 & S2 - Extremities Extremities: no ischemia, No edema, abnormal (Chronic skin changes) - Abdominal General gastrointestinal: soft, non-tender, non-distended, normal bowel sounds - Integumentary Integumentary: Present: clear, warm - Psychiatric Psychiatric: appropriate mood/affect, cooperative - Neurologic Neurologic: CNII-XII intact, moves all extremities Results - Labs CBC & Chem 7: 10/10/19 04:27 10/08/19 02:08 Labs: Laboratory Last Values WBC 5.1 K/mm3 (4.5-11.0) 10/08/19 02:08 RBC 4.84 M/mm3 (3.65-5.03) 10/08/19 02:08 Hgb 14.8 gm/dl (11.8-15.2) 10/10/19 04:27 Hct 44.3 % (35.5-45.6) 10/10/19 04:27 MCV 94 fl (84-94) 10/08/19 02:08 MCH 30 pg (28-32) 10/08/19 02:08 MCHC 33 % (32-34) 10/08/19 02:08 RDW 14.6 % (13.2-15.2) 10/08/19 02:08 Plt Count 137 K/mm3 (140-440) L 10/10/19 04:27 Lymph % (Auto) 29.4 % (13.4-35.0) 10/06/19 03:18 [place] % (Auto) 8.2 % (0.0-7.3) H 10/06/19 03:18 Eos % (Auto) 1.6 % (0.0-4.3) 10/06/19 03:18 Baso % (Auto) 0.8 % (0.0-1.8) 10/06/19 03:18 Lymph # 1.9 K/mm3 (1.2-5.4) 10/06/19 03:18 Teller # 0.5 K/mm3 (0.0-0.8) 10/06/19 03:18 Eos # 0.1 K/mm3 (0.0-0.4) 10/06/19 03:18 Baso # 0.0 K/mm3 (0.0-0.1) 10/06/19 03:18 Seg Neutrophils % 60.0 % (40.0-70.0) 10/06/19 03:18 Seg Neutrophils # 3.8 K/mm3 (1.8-7.7) 10/06/19 03:18 PT 12.8 Sec. (12.2-14.9) 10/07/19 06:55 INR 0.95 (0.87-1.13) 10/07/19 06:55 APTT 27.0 Sec. (24.2-36.6) 10/06/19 08:20 Heparin Anti-Xa Level 0.51 U.I./ml (0.3-0.7) 10/09/19 10:04 Sodium 139 mmol/L (137-145) 10/08/19 02:08 Potassium 3.8 mmol/L (3.6-5.0) 10/08/19 02:08 Chloride 106.7 mmol/L (98-107) 10/08/19 02:08 Carbon Dioxide 22 mmol/L (22-30) 10/08/19 02:08 Anion Gap 14 mmol/L 10/08/19 02:08 BUN 13 mg/dL (9-20) 10/08/19 02:08 Creatinine 1.5 mg/dL (0.8-1.5) 10/08/19 02:08 Estimated GFR 60 ml/min 10/08/19 02:08 BUN/Creatinine Ratio 9 % 10/08/19 02:08 Glucose 96 mg/dL (75-100) 10/08/19 02:08 Uric Acid 6.4 mg/dL (3.5-7.6) 10/06/19 08:20 Calcium 7.8 mg/dL (8.4-10.2) L 10/08/19 02:08 Magnesium 1.90 mg/dL (1.7-2.3) 10/07/19 06:55 Total Bilirubin 0.30 mg/dL (0.1-1.2) 10/06/19 08:20 Direct Bilirubin < 0.2 mg/dL (0-0.2) 10/06/19 08:20 AST 15 units/L (5-40) 10/06/19 08:20 ALT 9 units/L (7-56) 10/06/19 08:20 Alkaline Phosphatase 67 units/L (35-129) 10/06/19 08:20 Total Creatine Kinase 456 units/L (55-170) H 10/06/19 08:20 Troponin T < 0.010 ng/mL (0.00-0.029) 10/06/19 03:18 NT-Pro-B Natriuret Pep 231.6 pg/mL (0-900) 10/06/19 08:20 Total Protein 6.5 g/dL (6.3-8.2) 10/06/19 08:20 Albumin 3.1 g/dL (3.9-5) L 10/06/19 08:20 Albumin/Globulin Ratio 0.9 % 10/06/19 08:20 Triglycerides 228 mg/dL (2-149) H 10/07/19 06:55 Cholesterol 197 mg/dL (50-199) 10/07/19 06:55 LDL Cholesterol Direct 147 mg/dL (50-130) H 10/07/19 06:55 HDL Cholesterol 33 mg/dL (40-59) L 10/07/19 06:55 Cholesterol/HDL Ratio 5.96 % 10/07/19 06:55 TSH 2.120 mlU/mL (0.270-4.200) 10/06/19 08:20 Urine Color Yellow (Yellow) 10/06/19 15:07 Urine Turbidity Clear (Clear) 10/06/19 15:07 Urine pH 6.0 (5.0-7.0) 10/06/19 15:07 Ur Specific [place] 1.020 (1.003-1.030) 10/06/19 15:07 Urine Protein >2000 mg dl mg/dL (Negative) 10/06/19 15:07 Urine Glucose (UA) Neg mg/dL (Negative) 10/06/19 15:07 Urine Ketones Neg mg/dL (Negative) 10/06/19 15:07 Urine Blood Sm (Negative) 10/06/19 15:07 Urine Nitrite Neg (Negative) 10/06/19 15:07 Urine Bilirubin Neg (Negative) 10/06/19 15:07 Urine Urobilinogen < 2.0 mg/dL (<2.0) 10/06/19 15:07 Ur Leukocyte Esterase Neg (Negative) 10/06/19 15:07 Urine WBC (Auto) 1.0 /HPF (0.0-6.0) 10/06/19 15:07 Urine RBC (Auto) 3.0 /HPF (0.0-6.0) 10/06/19 15:07 Urine Mucus Few /HPF 10/06/19 15:07 Urine Creatinine 173.7 mg/dL (0.1-20.0) H 10/06/19 15:07 Urine Sodium 116 mmol/L 10/06/19 15:07 Paige/IV: Voiding Method Toilet IV Catheter Type [Left Hand] Peripheral IV IV Catheter Type [Right Chest] IVAD / Port Active Medications - Current Medications Current Medications: Generic Name Dose Route Start Last Admin Trade Name Freq PRN Reason Stop Dose Admin Acetaminophen 650 mg 10/06/19 17:21 Tylenol PO Q6H PRN Non Cardiac Pain or Temp>100.5 Amlodipine Besylate 5 mg 10/06/19 18:00 10/09/19 09:42 Amlodipine PO 5 mg QDAY RAKESH Administration Aspirin 325 mg 10/07/19 10:00 10/09/19 09:42 Aspirin PO 325 mg QDAY RAKESH Administration Atorvastatin Calcium 40 mg 10/06/19 22:00 10/09/19 21:31 Lipitor PO 40 mg QHS RAKESH Administration Diphenhydramine HCl 25 mg 10/06/19 17:25 10/09/19 21:38 Benadryl IV 25 mg Q6H PRN Administration Itching Hydralazine HCl 10 mg 10/06/19 17:22 10/10/19 06:01 Apresoline IV 10 mg Q4HR PRN Administration Blood Pressure Hydralazine HCl 25 mg 10/09/19 22:00 10/10/19 06:05 Apresoline PO Not Given Q8HR RAKESH Heparin Sodium/Sodium Chloride 25,000 unit in 500 mls @ 30 mls/hr 10/06/19 09:00 10/10/19 06:38 Heparin/ 0.45% Nacl-25,000 Unit/500 Ml IV 1,400 units/hr TITR RAKESH 28 mls/hr Administration Protocol 1,500 UNITS/HR Nicotine 21 mg 10/06/19 18:00 10/09/19 09:43 Habitrol TD 21 mg QDAY RAKESH Administration Nitroglycerin 0.4 mg 10/06/19 08:02 Nitrostat SL .Q5MIN PRN Chest Pain Ondansetron HCl 4 mg 10/06/19 17:21 10/09/19 07:21 Zofran IV 4 mg Q4H PRN Administration Nausea And Vomiting Oxycodone/Acetaminophen 1 tab 10/09/19 12:30 10/10/19 03:02 Percocet 5/325 PO 1 tab Q6H PRN Administration Pain, Moderate (4-6) Pantoprazole Sodium 40 mg 10/06/19 18:00 10/09/19 09:42 Protonix PO 40 mg QDAY RAKESH Administration Polyethylene Glycol 17 gm 10/06/19 17:22 Miralax 3350 PO QDAY PRN Constipation Triamcinolone Acetonide 1 applic 10/06/19 22:00 10/09/19 21:31 Kenalog TP 1 applic BID RAKESH Administration
[2019-10-10] MEDS ORDERED: hydrALAZINE 20 MG/1 ML INJ IV ONE (07:52)
[2019-10-10] MEDS ORDERED: LIDOCAINE 1%/EPINEPHRINE 1:100,000 VIAL (20 ML) INFILTRATI ONE (08:51)
[2019-10-10] MEDS ORDERED: HEPARIN 10,000 UNITS/10 ML VIAL ONE (08:52)
[2019-10-10] MEDS ORDERED: HEPARIN/NS 5000 UNIT/500ML 1,000 ML IR ONE (08:52)
[2019-10-10] MEDS ORDERED: ceFAZolin/Water 2 GM/20 ML 2 GM/20 ML SYRINGE IV ONE (09:00)
[2019-10-10] MEDS ORDERED: SODIUM CHLORIDE 0.9% 500 ML 500 ML ONE (09:00)
--- NOTE | 2019-10-10 09:25 | Progress Note ---
Assessment and Plan 48-year-old male with thromboembolic issues on heparin drip with some mild peripheral vascular disease on ultrasound who now has a nonfunctional right internal jugular port. The port was placed 13 years ago for chemotherapy which has no longer been required for 12 years. The patient has been using the port intermittently and this time without heparin locks and now the port is nonfunctional. I discussed options including port removal and port removal and placement of a new port. After discussion with the patient, we decided upon port removal. Patient can have a port placement at a later time if desired. Recommend holding heparin for today. Can restart tomorrow morning, or can start Eliquis tomorrow morning. Subjective Date of service: 10/10/19 Principal diagnosis: Leg pain Interval history: The right internal jugular vein port was nonfunctional. Discussed situation with the patient. Objective - Constitutional Vitals: Vital Signs - 12hr 10/09/19 10/09/19 10/10/19 22:00 22:37 03:02 Temperature 98.2 F Pulse Rate 74 Respiratory 18 20 18 Rate Respiratory 18 Rate [Bilateral Leg] Blood Pressure 168/88 O2 Sat by Pulse 94 98 Oximetry 10/10/19 10/10/19 04:02 04:41 Temperature 98.1 F Pulse Rate 75 Respiratory 18 16 Rate Respiratory Rate [Bilateral Leg] Blood Pressure 170/85 O2 Sat by Pulse 89 Oximetry General appearance: Present: no acute distress - EENT Eyes: EOM intact ENT: hearing intact - Labs CBC & Chem 7: 10/10/19 04:27 10/08/19 02:08 Labs: Abnormal lab results 10/10/19 Range/Units 04:27 Plt Count 137 L (140-440) K/mm3 Medications & Allergies - Medications Allergies/Adverse Reactions: Allergies morphine Allergy (Verified 08/06/16 16:25) Hives tramadol Allergy (Verified 10/12/17 21:14) Nausea Home Medications: Home Medications Medication Instructions Recorded Confirmed Last Taken Type HYDROcodone/ACETAMINOPHEN [Vicodin 5 mg PO BID PRN 10/12/17 10/08/19 10/12/17 History HP 10-300 mg TAB] 1 Methadone [Dolophine] 10 mg PO Q8H 10/12/17 10/08/19 10/12/17 History 1 Torsemide [Demadex] 100 mg PO QDAY 10/12/17 10/08/19 Unknown History traZODone [Desyrel] 100 mg PO QHS 10/12/17 10/08/19 Unknown History Albuterol Sulfate [Proventil Hfa] 2 puff IH Q4H PRN #1 hfa.aer.ad 10/14/17 10/08/19 Unknown Rx Apixaban [Eliquis] 2.5 mg PO BID #60 tablet 10/14/17 10/08/19 Unknown Rx AtorvaSTATin [Lipitor] 20 mg PO QHS #30 tablet 10/14/17 10/08/19 Unknown Rx lisinopriL [Zestril TAB] 5 mg PO QDAY #30 tablet 10/14/17 10/08/19 Unknown Rx Active Medications: Generic Name Dose Route Start Last Admin Trade Name Freq PRN Reason Stop Dose Admin Acetaminophen 650 mg 10/06/19 17:21 Tylenol PO Q6H PRN Non Cardiac Pain or Temp>100.5 Amlodipine Besylate 5 mg 10/06/19 18:00 10/09/19 09:42 Amlodipine PO 5 mg QDAY RAKESH Administration Aspirin 325 mg 10/07/19 10:00 10/09/19 09:42 Aspirin PO 325 mg QDAY RAKESH Administration Atorvastatin Calcium 40 mg 10/06/19 22:00 10/09/19 21:31 Lipitor PO 40 mg QHS RAKESH Administration Diphenhydramine HCl 25 mg 10/06/19 17:25 10/09/19 21:38 Benadryl IV 25 mg Q6H PRN Administration Itching Hydralazine HCl 10 mg 10/06/19 17:22 10/10/19 08:15 Apresoline IV 10 mg Q4HR PRN Administration Blood Pressure Hydralazine HCl 25 mg 10/09/19 22:00 10/10/19 06:05 Apresoline PO Not Given Q8HR RAKESH Heparin Sodium/Sodium Chloride 25,000 unit in 500 mls @ 30 mls/hr 10/06/19 09:00 10/10/19 06:38 Heparin/ 0.45% Nacl-25,000 Unit/500 Ml IV 1,400 units/hr TITR RAKESH 28 mls/hr Administration Protocol 1,500 UNITS/HR Nicotine 21 mg 10/06/19 18:00 10/09/19 09:43 Habitrol TD 21 mg QDAY RAKESH Administration Nitroglycerin 0.4 mg 10/06/19 08:02 Nitrostat SL .Q5MIN PRN Chest Pain Ondansetron HCl 4 mg 10/06/19 17:21 10/09/19 07:21 Zofran IV 4 mg Q4H PRN Administration Nausea And Vomiting Oxycodone/Acetaminophen 1 tab 10/09/19 12:30 10/10/19 03:02 Percocet 5/325 PO 1 tab Q6H PRN Administration Pain, Moderate (4-6) Pantoprazole Sodium 40 mg 10/06/19 18:00 10/09/19 09:42 Protonix PO 40 mg QDAY RAKESH Administration Polyethylene Glycol 17 gm 10/06/19 17:22 Miralax 3350 PO QDAY PRN Constipation Triamcinolone Acetonide 1 applic 10/06/19 22:00 10/09/19 21:31 Kenalog TP 1 applic BID RAKESH Administration
[2019-10-10] MEDS: fentaNYL 100 MCG/2 ML INJ ONE ×4 (09:52→10:10)
[2019-10-10] MEDS: MIDAZOLAM 2 MG/2 ML INJ ONE ×5 (09:52→10:10)
--- NOTE | 2019-10-10 10:46 | Operative Report ---
Operative Report Operative Report: EXAM: Right internal jugular vein port removal under fluoroscopic guidance Fluoroscopic evaluation of the IVC filter DATE: 10/10/2019 [employer]: [place]O SINGLETON MD INDICATION: Nonfunctional right internal jugular for for lupus. No further need for port. MEDICATIONS: Please see nursing report for full details. CONTRAST: None PROCEDURE: Following an explanation of the risks, benefits, and alternatives; written informed consent was obtained. The patient was brought to the angiography suite and placed in supine position on the examination table. Area around the port was prepped and draped in a sterile fashion. The port site was then anesthetized with local anesthetic. 15 blade was used to make a 2.5 centimeter incision along the existing port healed incision. Curved hemostats were used to slowly separate the site and expose the port. As this was done, hemostasis was achieved with the use of c ompression and Bovie. The port tubing was expose the tubing was clamped. The tubing was then freed and completely extracted. Pressure was held at the prior venotomy sites after tubing removal until hemostasis was achieved. Securing sutures were cut and the port was then removed intact. The area was then evaluated and washed with sterile saline. Hemostasis was achieved with Bovie. The site was then closed in 2 layers with interrupted 3-0 Vicryl sutures and a running 4-0 Vicryl subcuticular suture. Dermabond was applied. Steri-Strips were applied. Sterile dressing was then applied. The patient tolerated the procedure well. There were no immediate postprocedural complications. FINDINGS: Successful removal of a right internal jugular vein port. [employer] radiograph demonstrates a intact port. Post procedural radiograph demonstrates successful port removal without residual tubing. The indwelling IVC filter is a permanent stainless steel Magee IVC filter ([employer]). IMPRESSION: Successful removal of a right internal jugular port under fluoroscopic guidance.
[2019-10-10] MEDS: ASPIRIN 325 MG TAB PO SCH (11:36)
[2019-10-10] MEDS: amLODIPine 5 MG TAB PO SCH (11:36)
[2019-10-10] MEDS: NICOTINE 21 MG/24 HR PATCH TD SCH (11:36)
[2019-10-10] MEDS: PANTOPRAZOLE 40 MG TAB PO SCH (11:36)
[2019-10-10] MEDS: TRIAMCINOLONE 0.1% CREAM 15 GM TP SCH ×2 (11:37→21:35)
--- NOTE | 2019-10-10 19:46 | Vascular Lab Report ---
DUPLEX DOPPLER LOWER EXTREMITY VEINS, BILATERAL INDICATION / CLINICAL INFORMATION: venous ultrasound with reflux. TECHNIQUE: Duplex doppler imaging was performed through the veins of both lower extremities using venous shanique melissa and other maneuvers. COMPARISON: Lower extremity venous Doppler ultrasound from 10/06/2019 FINDINGS: Color flow is preserved in the right external iliac, common femoral, superficial femoral, deep femora l veins. Noncompressible grayscale filling defect is present in the right greater saphenous vein from the prox imal thigh to the distal calf. Color flow is partially preserved. Flow is preserved in the right superficial saphenous vein. On the left, there is preserved color flow in the greater and superficial saphenous veins, the deep a nd superficial femoral veins, and the popliteal vein. IMPRESSION: Nonocclusive thrombosis of the right greater saphenous vein. Please also refer to the report from the comparison study of 10/06/2019. Signer Name: Memo Greenwood MD Signed: 10/10/2019 7:41 PM Workstation Name: [id number]
[2019-10-10] MEDS: CYCLOBENZAPRINE 10 MG TAB PO PRN (20:36)
[2019-10-11] MEDS: diphenhydrAMINE 50 MG/ML VIAL IV PRN ×2 (01:18→10:07)
[2019-10-11] MEDS: oxyCODONE /ACETAMINOPHEN 5-325MG TAB PO PRN ×2 (01:18→10:03)
[2019-10-11] MEDS: hydrALAZINE 25 MG TAB PO SCH ×2 (06:59→16:09)
[2019-10-11] MEDS: amLODIPine 5 MG TAB PO SCH (10:03)
[2019-10-11] MEDS: ASPIRIN 325 MG TAB PO SCH (10:03)
[2019-10-11] MEDS: PANTOPRAZOLE 40 MG TAB PO SCH (10:03)
[2019-10-11] MEDS: NICOTINE 21 MG/24 HR PATCH TD SCH (10:05)
--- NOTE | 2019-10-11 10:13 | Vascular Lab Report ---
Abdominal venous Ultrasound HISTORY: prior DVT - evaluate IVC and iliac veins. TECHNIQUE: Grayscale and color imaging performed. COMPARISON: DVT study from yesterday FINDINGS: The visualized IVC and external iliac veins are widely patent with no thrombus. IMPRESSION: Negative for DVT. Signer Name: Lance Vieira MD Signed: 10/11/2019 10:09 AM Workstation Name: [id number]
[2019-10-11] MEDS: TRIAMCINOLONE 0.1% CREAM 15 GM TP SCH (10:15)
--- NOTE | 2019-10-11 10:42 | Progress Note ---
Hospitalist Physical - Constitutional Vitals: Temp Pulse Resp BP Pulse Ox 98.2 F 77 18 132/82 91 10/11/19 10:17 10/11/19 10:00 10/11/19 10:17 10/11/19 10:03 10/11/19 10:00 General appearance: Present: no acute distress, well-nourished, obese Results - Labs CBC & Chem 7: 10/10/19 04:27 10/08/19 02:08 Labs: Laboratory Last Values WBC 5.1 K/mm3 (4.5-11.0) 10/08/19 02:08 RBC 4.84 M/mm3 (3.65-5.03) 10/08/19 02:08 Hgb 14.8 gm/dl (11.8-15.2) 10/10/19 04:27 Hct 44.3 % (35.5-45.6) 10/10/19 04:27 MCV 94 fl (84-94) 10/08/19 02:08 MCH 30 pg (28-32) 10/08/19 02:08 MCHC 33 % (32-34) 10/08/19 02:08 RDW 14.6 % (13.2-15.2) 10/08/19 02:08 Plt Count 137 K/mm3 (140-440) L 10/10/19 04:27 Lymph % (Auto) 29.4 % (13.4-35.0) 10/06/19 03:18 [place] % (Auto) 8.2 % (0.0-7.3) H 10/06/19 03:18 Eos % (Auto) 1.6 % (0.0-4.3) 10/06/19 03:18 Baso % (Auto) 0.8 % (0.0-1.8) 10/06/19 03:18 Lymph # 1.9 K/mm3 (1.2-5.4) 10/06/19 03:18 [place] # 0.5 K/mm3 (0.0-0.8) 10/06/19 03:18 Eos # 0.1 K/mm3 (0.0-0.4) 10/06/19 03:18 Baso # 0.0 K/mm3 (0.0-0.1) 10/06/19 03:18 Seg Neutrophils % 60.0 % (40.0-70.0) 10/06/19 03:18 Seg Neutrophils # 3.8 K/mm3 (1.8-7.7) 10/06/19 03:18 PT 12.8 Sec. (12.2-14.9) 10/07/19 06:55 INR 0.95 (0.87-1.13) 10/07/19 06:55 APTT 27.0 Sec. (24.2-36.6) 10/06/19 08:20 Heparin Anti-Xa Level < 0.10 U.I./ml (0.3-0.7) L 10/10/19 13:01 Sodium 139 mmol/L (137-145) 10/08/19 02:08 Potassium 3.8 mmol/L (3.6-5.0) 10/08/19 02:08 Chloride 106.7 mmol/L (98-107) 10/08/19 02:08 Carbon Dioxide 22 mmol/L (22-30) 10/08/19 02:08 Anion Gap 14 mmol/L 10/08/19 02:08 BUN 13 mg/dL (9-20) 10/08/19 02:08 Creatinine 1.5 mg/dL (0.8-1.5) 10/08/19 02:08 Estimated GFR 60 ml/min 10/08/19 02:08 BUN/Creatinine Ratio 9 % 10/08/19 02:08 Glucose 96 mg/dL (75-100) 10/08/19 02:08 Uric Acid 6.4 mg/dL (3.5-7.6) 10/06/19 08:20 Calcium 7.8 mg/dL (8.4-10.2) L 10/08/19 02:08 Magnesium 1.90 mg/dL (1.7-2.3) 10/07/19 06:55 Total Bilirubin 0.30 mg/dL (0.1-1.2) 10/06/19 08:20 Direct Bilirubin < 0.2 mg/dL (0-0.2) 10/06/19 08:20 AST 15 units/L (5-40) 10/06/19 08:20 ALT 9 units/L (7-56) 10/06/19 08:20 Alkaline Phosphatase 67 units/L (35-129) 10/06/19 08:20 Total Creatine Kinase 456 units/L (55-170) H 10/06/19 08:20 Troponin T < 0.010 ng/mL (0.00-0.029) 10/06/19 03:18 NT-Pro-B Natriuret Pep 231.6 pg/mL (0-900) 10/06/19 08:20 Total Protein 6.5 g/dL (6.3-8.2) 10/06/19 08:20 Albumin 3.1 g/dL (3.9-5) L 10/06/19 08:20 Albumin/Globulin Ratio 0.9 % 10/06/19 08:20 Triglycerides 228 mg/dL (2-149) H 10/07/19 06:55 Cholesterol 197 mg/dL (50-199) 10/07/19 06:55 LDL Cholesterol Direct 147 mg/dL (50-130) H 10/07/19 06:55 HDL Cholesterol 33 mg/dL (40-59) L 10/07/19 06:55 Cholesterol/HDL Ratio 5.96 % 10/07/19 06:55 TSH 2.120 mlU/mL (0.270-4.200) 10/06/19 08:20 Urine Color Yellow (Yellow) 10/06/19 15:07 Urine Turbidity Clear (Clear) 10/06/19 15:07 Urine pH 6.0 (5.0-7.0) 10/06/19 15:07 Ur Specific [place] 1.020 (1.003-1.030) 10/06/19 15:07 Urine Protein >2000 mg dl mg/dL (Negative) 10/06/19 15:07 Urine Glucose (UA) Neg mg/dL (Negative) 10/06/19 15:07 Urine Ketones Neg mg/dL (Negative) 10/06/19 15:07 Urine Blood Sm (Negative) 10/06/19 15:07 Urine Nitrite Neg (Negative) 10/06/19 15:07 Urine Bilirubin Neg (Negative) 10/06/19 15:07 Urine Urobilinogen < 2.0 mg/dL (<2.0) 10/06/19 15:07 Ur Leukocyte Esterase Neg (Negative) 10/06/19 15:07 Urine WBC (Auto) 1.0 /HPF (0.0-6.0) 10/06/19 15:07 Urine RBC (Auto) 3.0 /HPF (0.0-6.0) 10/06/19 15:07 Urine Mucus Few /HPF 10/06/19 15:07 Urine Creatinine 173.7 mg/dL (0.1-20.0) H 10/06/19 15:07 Urine Sodium 116 mmol/L 10/06/19 15:07 Diagnostic Impressions: Echocardiogram 10/06/19 17:23 Transthoracic Echocardiogram Indication: PE BP: 164/89 HR: 54 Conclusions *There is mild mitral regurgitation. *There is mild tricuspid regurgitation. *The left ventricular chamber size is normal. *Mild concentric left ventricular hypertrophy is observed. *Global left ventricular systolic function is at the lower limits of normal. *The estimated ejection fraction is 50-55%. *Right ventricular chamber size and systolic function are within normal limits. *There is evidence of an atrial septal aneurysm. *A patent foramen ovale is demonstrated by agitated saline contrast. Findings Left Ventricle: The left ventricular chamber size is normal. Mild concentric left ventricular hypertrophy is observed. Global left ventricular wall motion and contractility are within normal limits. Global left ventricular systolic function is at the lower limits of normal. The estimated ejection fraction is 50-55%. Normal left ventricular diastolic filling is observed. Left Atrium: The left atrial chamber size is normal. Right Ventricle: The right ventricular chamber size and systolic function are within normal limits. Right Atrium: The right atrial cavity size is normal. A patent foramen ovale is demonstrated by agitated saline contrast. There is evidence of an atrial septal aneurysm. Aortic Valve: The aortic valve is trileaflet. The aortic valve leaflets are mildly thickened. There is no evidence of aortic regurgitation. There is no evidence of aortic stenosis. Mitral Valve: The mitral valve leaflets are mildly thickened. There is mild mitral regurgitation. Tricuspid Valve: The tricuspid valve leaflets are mildly thickened. There is mild tricuspid regurgitation. The right ventricular systolic pressure is calculated at 37 mmHg. Pulmonic Valve: The pulmonic valve appears normal. There is trace pulmonic regurgitation. Pericardium: There is no pericardial effusion. Aorta: There is no dilatation of the ascending aorta. There is no dilatation of the aortic root. Venous: The inferior vena cava appears normal in size. There is a greater than 50% respiratory change in the inferior vena cava dimension. Contrast: Intravenous agitated saline contrast was used to assess intracardiac shunting. Measurements Chambers 2D Name Value Normal Range IVSd (2D) 1.24 cm (0.6 - 1.1) LVPWd (2D) 1.22 cm (0.6 - 1.1) LVIDd (2D) 5.56 cm (3.7 - 5.6) LVIDs (2D) 3.81 cm (2 - 3.8) LV FS (2D) 31.42 % - EF Teichholz (2D) 58.67 % - Ao root diameter (2D) 2.74 cm (2 - 3.7) Volumes/Mass Name Value Normal Range LA ESV SP 4CH (A/L) 41.68 ml - LA ESV SP 2CH (A/L) 58.26 ml - LA ESV BP (A/L) 53.49 ml - LA ESV BP (A/L) index 25.97 ml/m2 - LA ESV SP 4CH (MOD) 38.47 ml - LA ESV SP 2CH (MOD) 56.92 ml - LA ESV BP (MOD) 50.36 ml - LA ESV BP (MOD) index 24.45 ml/m2 - Diastolic/Systolic Function Name Value Normal Range MV E-wave Vmax 0.8 m/sec - MV deceleration time 256.54 msec - MV A-wave Vmax 0.63 m/sec - MV E:A ratio 1.28 ratio - Aortic Valve Name Value Normal Range AV Vmax 1.75 m/sec - AV VTI 36.39 cm - AV peak gradient 12.28 mmHg - AV mean gradient 5.71 mmHg - LVOT diameter 1.8 cm - LVOT Vmax 0.99 m/sec - LVOT VTI 21.38 cm - LVOT peak gradient 3.93 mmHg - LVOT mean gradient 2.14 mmHg - SV LVOT 54.3 ml - OLYA (continuity Vmax) 1.44 cm2 - OLYA (continuity VTI) 1.49 cm2 - Tricuspid Valve Name Value Normal Range TR Vmax 2.92 m/sec - TR peak gradient 34 mmHg - RAP 3 mmHg - RVSP 37 mmHg - IVC diameter 1.92 cm (1.2 - 2.3) Pulmonic Valve/Qp:Qs Name Value Normal Range PV Vmax 1.18 m/sec - PV peak gradient 5.56 mmHg - PV acceleration time 91.34 msec - Paige/IV: Voiding Method Toilet IV Catheter Type [Left Hand] Peripheral IV IV Catheter Type [Right Chest] IVAD / Port Active Medications - Current Medications Current Medications: Generic Name Dose Route Start Last Admin Trade Name Freq PRN Reason Stop Dose Admin Acetaminophen 650 mg 10/06/19 17:21 Tylenol PO Q6H PRN Non Cardiac Pain or Temp>100.5 Amlodipine Besylate 5 mg 10/06/19 18:00 10/11/19 10:03 Amlodipine PO 5 mg QDAY RAKESH Administration Aspirin 325 mg 10/07/19 10:00 10/11/19 10:03 Aspirin PO 325 mg QDAY RAKESH Administration Atorvastatin Calcium 40 mg 10/06/19 22:00 10/10/19 21:29 Lipitor PO 40 mg QHS RAKESH Administration Cyclobenzaprine HCl 5 mg 10/10/19 19:37 10/10/19 20:36 Flexeril PO 5 mg Q8H PRN Administration Muscle Spasm Diphenhydramine HCl 25 mg 10/06/19 17:25 10/11/19 10:07 Benadryl IV 25 mg Q6H PRN Administration Itching Hydralazine HCl 10 mg 10/06/19 17:22 10/10/19 08:15 Apresoline IV 10 mg Q4HR PRN Administration Blood Pressure Hydralazine HCl 25 mg 10/09/19 22:00 10/11/19 06:59 Apresoline PO 25 mg Q8HR RAKESH Administration Heparin Sodium/Sodium Chloride 25,000 unit in 500 mls @ 30 mls/hr 10/06/19 09:00 10/10/19 06:38 Heparin/ 0.45% Nacl-25,000 Unit/500 Ml IV 1,400 units/hr TITR RAKESH 28 mls/hr Administration Protocol 1,500 UNITS/HR Nicotine 21 mg 10/06/19 18:00 10/11/19 10:05 Habitrol TD 21 mg QDAY RAKSEH Administration Nitroglycerin 0.4 mg 10/06/19 08:02 Nitrostat SL .Q5MIN PRN Chest Pain Ondansetron HCl 4 mg 10/06/19 17:21 10/09/19 07:21 Zofran IV 4 mg Q4H PRN Administration Nausea And Vomiting Oxycodone/Acetaminophen 1 tab 10/09/19 12:30 10/11/19 10:03 Percocet 5/325 PO 1 tab Q6H PRN Administration Pain, Moderate (4-6) Pantoprazole Sodium 40 mg 10/06/19 18:00 10/11/19 10:03 Protonix PO 40 mg QDAY RAKESH Administration Polyethylene Glycol 17 gm 10/06/19 17:22 10/10/19 21:38 Miralax 3350 PO 17 gm QDAY PRN Administration Constipation Triamcinolone Acetonide 1 applic 10/06/19 22:00 10/11/19 10:15 Kenalog TP 1 applic BID RAKESH Administration
[2019-10-11] MEDS ORDERED: APIXABAN 5 MG TAB PO SCH (12:00)
--- NOTE | 2019-10-11 15:29 | Discharge Summary ---
Providers - Providers Date of Admission: 10/06/19 09:50 Date of discharge: 10/11/19 Attending physician: KEIRY HERNANDEZ 10/06/19 17:18 Consult to Physician [CONS] Routine Comment: Consulting Provider: ORLANDO SINGLETON Physician Instructions: Reason For Exam: BLE pains, ?PAD vs chronic DVTs 10/09/19 12:00 Consult to Physician [CONS] Routine Comment: Consulting Provider: ORLANDO DAVIDSON Physician Instructions: Reason For Exam: To evaluate rt chest port that is not working Primary care physician: MANAGER [employer] Hospitalization Condition: Serious Disposition: DC-01 TO HOME OR SELFCARE Time spent for discharge: 33 min Core Measure Documentation - Palliative Care Palliative Care/ Comfort Measures: Not Applicable - Core Measures Any of the following diagnoses?: none Exam - Constitutional Vitals: Temp Pulse Resp BP Pulse Ox 97.6 F 78 18 134/70 92 10/11/19 11:52 10/11/19 11:52 10/11/19 11:52 10/11/19 11:52 10/11/19 11:52 General appearance: Present: no acute distress, well-nourished - EENT Eyes: Present: PERRL, EOM intact - Neck Neck: Present: supple, normal ROM - Respiratory Respiratory effort: normal Respiratory: bilateral: diminished, negative: rales, rhonchi, wheezing - Cardiovascular Rhythm: regular Heart Sounds: Present: S1 & S2 - Extremities Extremities: no ischemia, abnormal (Chronic changes) - Abdominal General gastrointestinal: Present: soft, non-tender, non-distended, normal bowel sounds - Integumentary Integumentary: Present: clear, warm - Musculoskeletal Musculoskeletal: strength equal bilaterally - Psychiatric Psychiatric: appropriate mood/affect, cooperative - Neurologic Neurologic: CNII-XII intact, moves all extremities Plan Activity: no restrictions, fall precautions Diet: low fat, low cholesterol Additional Instructions: If you notice any bleeding stop Eliquis and contact . Advised to follow with Dr. Singleton vascular surgeon in 1 week Follow up with: MARY BERUMEN MD [Primary Care Provider] - 3-5 Days ORLANDO SINGLETON MD [Staff Physician] - 7 Days DANO MENDEZ MD [Staff Physician] - 7 Days Prescriptions: amLODIPine 5 mg PO QDAY #30 tablet hydrALAZINE [Apresoline TAB] 25 mg PO Q8HR #90 tablet Aspirin [Aspirin BABY CHEW TAB] 81 mg PO QDAY #30 tab.chew Apixaban [Eliquis] 5 mg PO Q12H #60 tablet Nicotine [Habitrol] 21 mg TD QDAY #30 patch Triamcinolone 0.1% [Kenalog 0.1% CREAM] 1 applic TP BID #2 tube AtorvaSTATin [Lipitor] 40 mg PO QHS #30 tablet HYDROcodone/ACETAMINOPHEN [Vicodin HP 10-300 mg TAB] 5 mg PO BID PRN #7 PRN Reason: Shortness Of Breath lisinopriL [Zestril TAB] 5 mg PO QDAY #30 tablet
[2019-10-11] MEDS: CYCLOBENZAPRINE 10 MG TAB PO PRN (15:57)
[2019-10-11 16:10] VITALS: BP 153/85
[2019-10-11] MEDS ORDERED: APIXABAN 2.5 MG TAB PO SCH ×2 (22:00)
== END 2019-10-11 16:30 | disposition home or self-care (01) | DRG 299 ==
LOC: ED 02:01 → 3A 09:50
PROVIDERS: ADMIT Internal Medicine; ATTEND Internal Medicine
PROC: 0JPT3WZ Removal of Totally Implantable Vascular Access Device from Trunk Subcutaneous Tissue and Fascia, Percutaneous Approach (ICD-10-PCS; principal; 2019-10-10)
DX: I73.9 Peripheral vascular disease, unspecified (principal); N17.0 Acute kidney failure with tubular necrosis; I82.503 Chronic embolism and thrombosis of unspecified deep veins of lower extremity, bilateral; E83.42 Hypomagnesemia; F17.210 Nicotine dependence, cigarettes, uncomplicated; J44.9 Chronic obstructive pulmonary disease, unspecified; I10 Essential (primary) hypertension; E66.9 Obesity, unspecified; G47.30 Sleep apnea, unspecified; Z91.19 Patient's noncompliance with other medical treatment and regimen; Z71.6 Tobacco abuse counseling; Z68.38 Body mass index [BMI] 38.0-38.9, adult; Z86.711 Personal history of pulmonary embolism; Z82.49 Family history of ischemic heart disease and other diseases of the circulatory system; Z88.5 Allergy status to narcotic agent; Z79.899 Other long term (current) drug therapy; Z79.82 Long term (current) use of aspirin; Z95.820 Peripheral vascular angioplasty status with implants and grafts
CPT/HCPCS: 36415; 36590; 71046; 78582; 80048; 80053; 80061; 80076; 81001; 82550; 82570; 83735; 83880; 84300; 84443; 84484; 84550; 85014; 85018; 85025; 85027; 85049; 85520; 85610; 85730; 93005; 93010; 93306; 93922; 93925; 93970; 93979; 96365; 96375; 99406; G0378; A9270-GY; A9540; A9558; J0360; J0690; J1170; J1200; J1644; J2250; J2405; J3010; J3475; J7030; J7040; J7050

== ENCOUNTER 2020-12-04 16:06 | Inpatient (IN) | payer MEDICARE ==
--- NOTE | 2020-12-04 16:58 | Event Note ---
ED Screening Note Date of service: 12/04/20 Time: 16:57 ED Screening Note: 50 y/o male pt w/ hx of multiple PE's/DVT's, lupus nephritis (previously on dialysis), and stage IV renal insufficiency presents to ED w/ complaints of pleuritic chest pain and dyspnea starting two days ago. Pt states pain is consistent with prior PE. He has not taken his Eliquis since April due to financial constraints. General: Awake, appropriately interactive, no acute distress. Neck: Supple. Full range of motion intact. Cardiovascular: Normal peripheral perfusion. Pulmonary: No respiratory distress. Patient is speaking normally without use of accessory muscles. Skin: No apparent rashes or lesions. Neurological: No facial asymmetry. Speech is clear. Follows commands. Patient is alert and oriented. Musculoskeletal: Moves all four extremities spontaneously with normal range of motion. Psych: Cooperative. Appropriate mood and affect. I have greeted and performed a focused rapid initial assessment of this patient. A comprehensive ED assessment and evaluation of the patient, analysis of all test results, and completion of the medical decision-making process will be conducted by additional ED providers. This initial assessment/diagnostic orders/clinical plan/treatment(s) is/are subject to change based on patients health status, clinical progression and re-assessment. Further treatment and workup at subsequent clinical provider's discretion. Patient/guardian urged not to elope from the ED as their condition may be serious if not clinically assessed and managed.
[2020-12-04 18:11] LABS: Basophils % (Auto) 0.5 % (0.0-1.8); Eosinophils # (Auto) 0.1 K/mm3 (0.0-0.4); Eosinophils % (Auto) 1.4 % (0.0-4.3); Hematocrit 42.4 % (35.5-45.6); Hemoglobin 14.1 gm/dl (11.8-15.2); Lymphocytes % (Auto) 20.1 % (13.4-35.0); Mean Corpuscular HGB Conc 33 % (32-34); Mean Corpuscular Volume 97 fl (84-94); Monocytes # (Auto) 0.5 K/mm3 (0.0-0.8); Monocytes % (Auto) 8.8 % (0.0-7.3); Platelet Count 156 K/mm3 (140-440); Red Blood Count 4.38 M/mm3 (3.65-5.03); Red Cell Distribution Width 15.8 % (13.2-15.2)
[2020-12-04 18:20] LABS: INR 0.98 (0.87-1.13)
[2020-12-04 18:21] LABS: Partial Thromboplastin Time 27.2 Sec. (24.2-36.6)
[2020-12-04 18:31] LABS: Alanine Aminotransferase 8 units/L (7-56); Albumin 3.4 g/dL (3.9-5); BUN/Creatinine Ratio 10; Blood Urea Nitrogen 28 mg/dL (9-20); Calcium 8.3 mg/dL (8.4-10.2); Hemolysis Index 9
[2020-12-04] MEDS ORDERED: ASPIRIN 81 MG TAB CHEW PO ONE ×2 (20:46→23:49)
--- NOTE | 2020-12-05 08:43 | Emergency Department Report ---
ED Chest Pain HPI - General Chief Complaint: Chest Pain Stated Complaint: CHEST PAIN, ANJANA Time Seen by Provider: 12/05/20 08:39 Source: patient Mode of arrival: Ambulatory Limitations: No Limitations - History of Present Illness Initial Comments: This is a 50-year-old man who states he has been noncompliant with his oral anticoagulant therapy since April. He did not mention to me his 321 hospitalization. I have sure he was represcribed this medication at that time. In any case he is here this time for right-sided chest pain which is pleuritic of 3 days duration. He is not actively complaining of shortness of breath. He does realize that he is wheezing. He does feel like he needs a nebulizer treatment. Initially his pulse oximetry was in the high 90s. There was one reading at 92. He has chronic DVT of his legs and chronic swelling. He has a history of lupus nephritis. He also has a history of asthma. I do not think he is currently taking steroids. He is not on home nebulizer treatments. The patient's last creatinine was 1.8. Currently is 2.7. 10/14 Hospitalization: Hospitalization Reason for admission: Severe throbbing pain bilateral lower extremities/history of chronic DVT Condition: Fair Pertinent studies: V/Q scan IMPRESSION: VQ scan is intermediate probability for pulmonary embolus. Bilateral Venous Leg doppler IMPRESSION: 1. Chronic DVTs are noted bilaterally. 2v CXR IMPRESSION: 1. No acute findings. No interval change. Hospital course: Patient is a 48 yo AA man with history of hypertension, PAD s/p right leg stent placement, tobacco dependency, bilateral leg DVT s/p IVC filter, bilateral PE off Eliquis since January 2019 due to loss of disability insurance, SLE with nephritis s/p Chemotherapy and HD who presents to [facility]AT[facility] ED with severe throbbing constant but varying intensity radiating from mid thigh to ankle bilaterally progressing getting worse over 1 week without aggravating or relieving factors associated with SOB, substernal mid chest pressure, 15 lb weight gain and nausea without abdomial pains or vomiting. There is no headache, neck pain, fever, chills, cough. He reports not taking his medication since last year and not following up with any doctor. 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 Bilateral Venous Leg doppler IMPRESSION: 1. Chronic DVTs are noted bilaterally. 2v CXR IMPRESSION: 1. No acute findings. No interval change. Discharge Diagnosis: --Chest pains , V/Q scan, high suspicion for PE: Hold heparin drip for vascular procedure, eventually transition to Eliquis, get ECHO --BLE pains due to Chronic BLE DVT: on Heparin drip, transition to Eliquis when vascular work-up is completed Vascular recommend and advice the patient to wear thigh-high ADAIR hose all the time And also recommend anticoagulation for LIFE. Follow ultrasound venous system lower extremities and abdomen --Peripheral arterial disease: Stable, vascular following advised smoking cessation, --Acute kidney injury/ vasomotor nephropathy, monitor renal function, avoid nephrotoxins. Creatinine back to baseline normal range Creatinine 2.0-1.8-1.5, closely monitor --Ongoing tobacco use: advise to smoking cessation, nicotine patch as needed --Dymorphic eczema on back of left hand and big toe: topical steroid cream. benadryl --Accelerated hypertension: iv hydrazine prn, start Norvasc --Hypomagnesemia: replete and monitor levels --DVT ppx therapeutic a/c Plan of care reviewed with the patient and his nurse Stable at discharge Disposition: [id number] TO HOME OR SELFCARE Time spent for discharge: 33 min Complaint: chest pain -: Gradual, days(s) Onset: during rest Pain Location: right chest Pain Radiation: none Severity: moderate Quality: sharp Consistency: other Worsens With: inspiration Context: other (Previous DVT) re: denies: nausea, vomting, diaphoresis - Related Data Home Medications Medication Instructions Recorded Confirmed Last Taken Methadone [Dolophine] 10 mg PO Q8H 10/12/17 10/08/19 10/12/17 1 Torsemide [Demadex] 100 mg PO QDAY 10/12/17 10/08/19 Unknown traZODone [Desyrel] 100 mg PO QHS 10/12/17 10/08/19 Unknown Previous Rx's Medication Instructions Recorded Last Taken Type Apixaban [Eliquis] 5 mg PO Q12H #60 tablet 10/11/19 Unknown Rx Aspirin [Aspirin BABY CHEW TAB] 81 mg PO QDAY #30 tab.chew 10/11/19 Unknown Rx AtorvaSTATin [Lipitor] 40 mg PO QHS #30 tablet 10/11/19 Unknown Rx Nicotine [Habitrol] 21 mg TD QDAY #30 patch 10/11/19 Unknown Rx Triamcinolone 0.1% [Kenalog 0.1% 1 applic TP BID #2 tube 10/11/19 Unknown Rx CREAM] amLODIPine 5 mg PO QDAY #30 tablet 10/11/19 Unknown Rx hydrALAZINE [Apresoline TAB] 25 mg PO Q8HR #90 tablet 10/11/19 Unknown Rx lisinopriL [Zestril TAB] 5 mg PO QDAY #30 tablet 10/11/19 Unknown Rx oxyCODONE /ACETAMINOPHEN [Percocet 1 tab PO QHS PRN #7 tablet 10/13/19 Unknown Rx 5/325] Allergies Allergy/AdvReac Type Severity Reaction Status Date / Time morphine Allergy Hives Verified 12/04/20 16:12 tramadol Allergy Nausea Verified 12/04/20 16:12 Heart Score - HEART Score History: Slightly suspicious EKG: Normal Age: 45-65 Risk factors: > 3 risk factors or hx of atherosclerotic disease Troponin: < normal limit HEART Score: 3 - EKG Read Time Time EKG Completed: 14:15 EKG Read Time: 14:25 - Critical Actions Critical Actions: 0-3 pts:0.9-1.7%risk of adverse cardiac event.Candidate for discharge ED Review of Systems ROS: Stated complaint: CHEST PAIN, ANJANA Other details as noted in HPI Constitutional: denies: chills, fever Eyes: denies: eye pain, eye discharge, vision change ENT: denies: ear pain, throat pain Respiratory: shortness of breath, wheezing. denies: cough Cardiovascular: chest pain. denies: palpitations Endocrine: no symptoms reported Gastrointestinal: denies: abdominal pain, nausea, diarrhea Genitourinary: denies: urgency, dysuria Musculoskeletal: as per HPI, other (Chronically swollen legs) Skin: denies: rash, lesions Neurological: denies: headache, weakness, paresthesias Psychiatric: denies: anxiety, depression Hematological/Lymphatic: denies: easy bleeding, easy bruising ED Past Medical Hx - Past Medical History Hx Hypertension: Yes Hx Heart Attack/AMI: No Hx Congestive Heart Failure: No Hx Diabetes: No Hx Deep Vein Thrombosis: Yes Hx Pulmonary Embolism: Yes Hx Liver Disease: No Hx Renal Disease: No Hx Arthritis: Yes Hx Kidney Stones: No Hx Asthma: No Hx COPD: Yes Hx Tuberculosis: No Additional medical history: Lupus, DVT BLE and PE - Surgical History Hx Coronary Stent: No Hx Pacemaker: No Hx Internal Defibrillator: No Additional Surgical History: vascular filter - Social History Smoking Status: Current Every Day Smoker Substance Use Type: None - Medications Home Medications: Home Medications Medication Instructions Recorded Confirmed Last Taken Type Methadone [Dolophine] 10 mg PO Q8H 10/12/17 10/08/19 10/12/17 History 1 Torsemide [Demadex] 100 mg PO QDAY 10/12/17 10/08/19 Unknown History traZODone [Desyrel] 100 mg PO QHS 10/12/17 10/08/19 Unknown History Apixaban [Eliquis] 5 mg PO Q12H #60 tablet 10/11/19 Unknown Rx Aspirin [Aspirin BABY CHEW TAB] 81 mg PO QDAY #30 tab.chew 10/11/19 Unknown Rx AtorvaSTATin [Lipitor] 40 mg PO QHS #30 tablet 10/11/19 Unknown Rx Nicotine [Habitrol] 21 mg TD QDAY #30 patch 10/11/19 Unknown Rx Triamcinolone 0.1% [Kenalog 0.1% 1 applic TP BID #2 tube 10/11/19 Unknown Rx CREAM] amLODIPine 5 mg PO QDAY #30 tablet 10/11/19 Unknown Rx hydrALAZINE [Apresoline TAB] 25 mg PO Q8HR #90 tablet 10/11/19 Unknown Rx lisinopriL [Zestril TAB] 5 mg PO QDAY #30 tablet 10/11/19 Unknown Rx oxyCODONE /ACETAMINOPHEN [Percocet 1 tab PO QHS PRN #7 tablet 10/13/19 Unknown Rx 5/325] ED Physical Exam - General Limitations: Physical Limitation General appearance: alert, in no apparent distress - Head Head exam: Present: atraumatic, normocephalic - Eye Eye exam: Present: normal appearance - ENT ENT exam: Present: mucous membranes moist - Neck Neck exam: Present: normal inspection - Respiratory Respiratory exam: Present: wheezes. Absent: respiratory distress - Cardiovascular Cardiovascular Exam: Present: regular rate, normal rhythm. Absent: systolic murmur, diastolic murmur, rubs, gallop - GI/Abdominal GI/Abdominal exam: Present: soft, normal bowel sounds. Absent: distended, tenderness, guarding, rebound - Rectal Rectal exam: Present: deferred - Extremities Exam Extremities exam: Present: other (Essentially elephantiasis of both legs) - Back Exam Back exam: Present: normal inspection - Neurological Exam Neurological exam: Present: alert, oriented X3, CN II-XII intact. Absent: motor sensory deficit (No apparent acute focal deficit) - Psychiatric Psychiatric exam: Present: normal affect, normal mood - Skin Skin exam: Present: warm, dry, intact, normal color. Absent: rash ED Course Vital Signs 12/04/20 12/05/20 12/05/20 17:04 01:00 08:06 Temperature 98.4 F Pulse Rate 77 83 61 Pulse Rate [ Anterior Bilateral Throughout] Respiratory 18 20 15 Rate Respiratory Rate [Anterior Bilateral Throughout] Blood Pressure Blood Pressure 138/63 153/66 [Right] O2 Sat by Pulse 98 96 98 Oximetry 12/05/20 12/05/20 12/05/20 08:16 08:30 08:46 Temperature Pulse Rate 62 62 62 Pulse Rate [ Anterior Bilateral Throughout] Respiratory 20 25 H 15 Rate Respiratory Rate [Anterior Bilateral Throughout] Blood Pressure 122/76 122/76 108/57 Blood Pressure [Right] O2 Sat by Pulse 92 98 94 Oximetry 12/05/20 12/05/20 12/05/20 09:30 10:46 10:58 Temperature Pulse Rate 61 62 Pulse Rate [ 68 Anterior Bilateral Throughout] Respiratory 23 16 Rate Respiratory 20 Rate [Anterior Bilateral Throughout] Blood Pressure 122/53 132/61 Blood Pressure [Right] O2 Sat by Pulse 95 100 Oximetry - Reevaluation(s) Reevaluation #1: Case was discussed with the hospitalist and nephrology consultation. Mail Clerk agreed with heparinization and proceeding with VQ scan/Doppler evaluation. Patient was given 2 DuoNeb's. He was given IV Solu-Medrol. His wheezing impro dima. Dr. Drake came to the emergency department to see the patient. However, he was at diagnostic study. Patient will be admitted to the hospital service. 12/05/20 12:09 BARRY score - Barry Score Age > 65: (0) No Aspirin use within the Past 7 Days: (0) No 3 or more CAD Risk Factors: (1) Yes 2 or more Angina events in past 24 hrs: (0) No Known CAD with more than 50% Stenosis: (0) No Elevated Cardiac Markers: (0) No ST Deviation Greater than 0.5mm: (0) No BARRY Score: 1 ED Medical Decision Making - Lab Data Result diagrams: 12/05/20 10:43 12/04/20 17:10 Laboratory Results - last 24 hr 12/04/20 12/04/20 12/04/20 17:10 17:10 17:10 WBC 5.2 RBC 4.38 Hgb 14.1 Hct 42.4 MCV 97 H MCH 32 MCHC 33 RDW 15.8 H Plt Count 156 Lymph % (Auto) 20.1 Henry % (Auto) 8.8 H Eos % (Auto) 1.4 Baso % (Auto) 0.5 Lymph # (Auto) 1.0 L Henry # (Auto) 0.5 Eos # (Auto) 0.1 Baso # (Auto) 0.0 Seg Neutrophils % 69.2 Seg Neutrophils # 3.6 PT 12.8 INR 0.98 APTT 27.2 Sodium 139 Potassium 4.8 Chloride 108.3 H Carbon Dioxide 20 L Anion Gap 16 BUN 28 H Creatinine 2.7 H Estimated GFR 30 BUN/Creatinine Ratio 10 Glucose 100 Calcium 8.3 L Magnesium 1.70 Total Bilirubin < 0.20 AST 11 ALT 8 Alkaline Phosphatase 81 Troponin T < 0.010 NT-Pro-B Natriuret Pep 137.8 Total Protein 6.7 Albumin 3.4 L Albumin/Globulin Ratio 1.0 12/04/20 20:52 WBC RBC Hgb Hct MCV MCH MCHC RDW Plt Count Lymph % (Auto) Henry % (Auto) Eos % (Auto) Baso % (Auto) Lymph # (Auto) Henry # (Auto) Eos # (Auto) Baso # (Auto) Seg Neutrophils % Seg Neutrophils # PT INR APTT Sodium Potassium Chloride Carbon Dioxide Anion Gap BUN Creatinine Estimated GFR BUN/Creatinine Ratio Glucose Calcium Magnesium Total Bilirubin AST ALT Alkaline Phosphatase Troponin T < 0.010 NT-Pro-B Natriuret Pep Total Protein Albumin Albumin/Globulin Ratio - EKG Data -: EKG Interpreted by [place] EKG shows normal: sinus rhythm, axis, intervals, QRS complexes, ST-T waves Rate: normal - EKG Data Interpretation: no acute changes - Radiology Data Radiology results: image reviewed (No acute process) Critical care attestation.: If time is entered above; I have spent that time in minutes in the direct care of this critically ill patient, excluding procedure time. ED Disposition Clinical Impression: Pleuritic chest pain, History of venous thromboembolism Acute on chronic renal failure Qualifiers: Acute renal failure type: unspecified Chronic kidney disease stage: stage 3 ( moderate) Chronic kidney disease stage 3 subtype: unspecified whether 3a or 3b Qualified Code(s): N17.9 - Acute kidney failure, unspecified; N18.30 - Chronic kidney disease, stage 3 unspecified Disposition: OP ADMIT IP TO THIS HOSP Is pt being admited?: Yes Does the pt Need Aspirin: Yes Condition: Stable Instructions: Nonspecific Chest Pain, Adult Referrals: PRIMARY CARE, [Primary Care Provider] - 3-5 Days Time of Disposition: 12:14
[2020-12-05] MEDS ORDERED: methylPREDNISolone Sod Succinate 125 MG/2 ML INJ IV ONE (10:20)
[2020-12-05] MEDS ORDERED: IPRATROPIUM/ALBUTEROL SULFATE 3 ML AMPUL.NEB IH ONE (10:20)
[2020-12-05] MEDS ORDERED: HEPARIN 10,000 UNITS/10 ML VIAL IV ONE (10:36)
[2020-12-05] MEDS ORDERED: HEPARIN 10,000 UNITS/10 ML VIAL IV PRN (10:36)
[2020-12-05 11:18] LABS: Hematocrit 43.5 % (35.5-45.6); Hemoglobin 14.2 gm/dl (11.8-15.2)
[2020-12-05 11:32] LABS: INR 1.06 (0.87-1.13); Partial Thromboplastin Time 26.5 Sec. (24.2-36.6)
--- NOTE | 2020-12-05 12:01 | Nuclear Medicine Report ---
NUCLEAR MEDICINE PERFUSION LUNG SCAN INDICATION: r pleuritic CP. TECHNIQUE: 5.5 mCi of Tc-99m MAA were given by IV. COMPARISON: No recent chest x-ray FINDINGS: PERFUSION: No significant perfusion defects. ADDITIONAL FINDINGS: None. IMPRESSION: 1. Low probability for pulmonary embolism. Signer Name: Femi Butler MD Signed: 12/05/2020 11:56 AM Workstation Name: [id number]
[2020-12-05] MEDS: ASPIRIN 81 MG TAB CHEW PO SCH (12:08)
[2020-12-05] MEDS: amLODIPine 5 MG TAB PO SCH (12:09)
[2020-12-05] MEDS: HEPARIN/ 0.45% NACL DRIP 25,000 UNIT/500 ML BAG IV SCH (12:10)
--- NOTE | 2020-12-05 12:30 | XRay Report ---
CHEST 1 VIEW 12/05/2020 11:38 AM INDICATION / CLINICAL INFORMATION: chest pain. COMPARISON: 2 views of the chest from 10/06/2019. FINDINGS: SUPPORT DEVICES: None. HEART / MEDIASTINUM: No significant abnormality. LUNGS / PLEURA: There are generalized bilateral interstitial opacities. No significant pleural effusi on. No pneumothorax. ADDITIONAL FINDINGS: No significant additional findings. IMPRESSION: Possible interstitial edema without other acute abnormalities of the chest. Signer Name: Poncho Piedra MD Signed: 12/05/2020 12:24 PM Workstation Name: [id number]
--- NOTE | 2020-12-05 13:52 | Vascular Lab Report ---
DUPLEX DOPPLER LOWER EXTREMITY VEINS, BILATERAL INDICATION / CLINICAL INFORMATION: swollen legs. TECHNIQUE: Duplex doppler imaging was performed through the veins of both lower extremities using venous shanique melissa and other maneuvers. COMPARISON: 10/10/2019 FINDINGS: RIGHT COMMON FEMORAL VEIN: Negative. RIGHT FEMORAL VEIN: Negative. RIGHT POPLITEAL VEIN: Negative. RIGHT CALF VEINS: Negative. LEFT COMMON FEMORAL VEIN: Positive for deep venous thrombosis involving the distal external iliac vei n and common femoral vein. LEFT FEMORAL VEIN: Positive for deep venous thrombosis. LEFT POPLITEAL VEIN: Positive for deep venous thrombosis. LEFT CALF VEINS: Positive for deep venous thrombosis to the level of the posterior tibial vein. ADDITIONAL FINDINGS: None. IMPRESSION: 1. Positive for extensive deep venous thrombosis within the left lower extremity extending from the e xternal iliac vein to the level the posterior tibial vein. 2. Negative for DVT of the right lower extremity. The technician helper instrument notified the patient's nurse( Rafaela) of the findings at 1329. Signer Name: Servando Goss MD Signed: 12/05/2020 1:48 PM Workstation Name: [id number]
[2020-12-05] MEDS: hydrALAZINE 25 MG TAB PO SCH ×2 (14:05→22:52)
--- NOTE | 2020-12-05 15:09 | History and Physical Report ---
History of Present Illness Date of examination: 12/05/20 Date of admission: 12/05/20 12:14 Chief complaint: Chest pain History of present illness: This is a 50-year-old male who has history of DVT and PE who was recommended systemic anticoagulation for lifetime but noncompliant with his medications presented to the hospital with right-sided pleuritic chest pain. The pain is constant, sharp, not radiating and worse with deep breath and associated with cough. Patient does have history of biopsy-proven lupus nephritis but has not seen any physician in years for that. Work-up in the ER revealed extensive left leg deep venous thrombosis on lower extremity venous Doppler, VQ scan suggestive of low probability for PE. His creatinine also noted to be 2.7, his last creatinine is documented 1.8. Patient was initiated on heparin drip and admitted to the hospital for further evaluation management. He denies any N, V, D, abd pain, dysuria, hematuria, dizziness, syncope or sob. Past History Past Medical History: DVT (history of), hypertension, pulmonary embolism (histor y of), other (Lupus and lupus) Past Surgical History: hernia repair, Other (IVC filter placement) Social history: lives with family, smoking, full code. denies: alcohol abuse, prescription drug abuse Family history: hypertension Review of System: Constitutional: no fever, no chills, no weight loss Ears, eyes, nose, mouth and throat: no nasal congestion, no nasal discharge, no sinus pressure, no vision change, no red eye. Neck: No neck pain or rigidity. Cardiovascular: + Right-sided chest pain, no orthopnea, no palpitations, no leg swelling Respiratory: No shortness of breath, no cough, no congestion, no wheezing Gastrointestinal: no abdominal pain, no nausea, no vomiting Genitourinary : no dysuria, no hematuria Musculoskeletal: no joint swelling or muscle ache Integumentary: no rash, no pruritis Neurological: no parathesias, no numbness, no tingling Endocrine: no cold or heat intolerance, no polyuria or polydipsia Hematologic/Lymphatic: no easy bruising, no easy bleeding, no gland swelling Allergic/Immunologic: no urticaria, no angioedema. Medications and Allergies Allergies Allergy/AdvReac Type Severity Reaction Status Date / Time morphine Allergy Hives Verified 12/04/20 16:12 tramadol Allergy Nausea Verified 12/04/20 16:12 Home Medications Medication Instructions Recorded Confirmed Last Taken Type Methadone [Dolophine] 10 mg PO Q8H 10/12/17 12/05/20 10/12/17 History 1 Torsemide [Demadex] 100 mg PO QDAY 10/12/17 12/05/20 Unknown History traZODone [Desyrel] 100 mg PO QHS 10/12/17 12/05/20 Unknown History Apixaban [Eliquis] 5 mg PO Q12H #60 tablet 10/11/19 12/05/20 Unknown Rx Aspirin [Aspirin BABY CHEW TAB] 81 mg PO QDAY #30 tab.chew 10/11/19 12/05/20 Unknown Rx AtorvaSTATin [Lipitor] 40 mg PO QHS #30 tablet 10/11/19 12/05/20 Unknown Rx Nicotine [Habitrol] 21 mg TD QDAY #30 patch 10/11/19 12/05/20 Unknown Rx Triamcinolone 0.1% [Kenalog 0.1% 1 applic TP BID #2 tube 10/11/19 12/05/20 Unknown Rx CREAM] amLODIPine 5 mg PO QDAY #30 tablet 10/11/19 12/05/20 Unknown Rx hydrALAZINE [Apresoline TAB] 25 mg PO Q8HR #90 tablet 10/11/19 12/05/20 Unknown Rx lisinopriL [Zestril TAB] 5 mg PO QDAY #30 tablet 10/11/19 12/05/20 Unknown Rx oxyCODONE /ACETAMINOPHEN [Percocet 1 tab PO QHS PRN #7 tablet 10/13/19 12/05/20 Unknown Rx 5/325] Torsemide [Demadex] 100 mg PO QDAY 12/05/20 12/05/20 Unknown History Active Meds: Active Medications Amlodipine Besylate (Amlodipine 5 Mg Tab) 5 mg PO QDAY [facility] Last Admin: 12/05/20 12:09 Dose: 5 mg Documented by: Aspirin (Aspirin 81 Mg Tab Chew) 81 mg PO QDAY [facility] Last Admin: 12/05/20 12:08 Dose: 81 mg Documented by: Atorvastatin Calcium (Atorvastatin 40 Mg Tab) 40 mg PO QHS [facility] Heparin Sodium (Porcine) (Heparin 10,000 Units/10 Ml Vial) 4,300 unit 40 unit/kg (4300 unit) IV Q6H PRN PRN Reason: Anti-Xa Assay < 0.1 units/ml Hydralazine HCl (Hydralazine 25 Mg Tab) 25 mg PO Q8HR RAKESH Heparin Sodium/Sodium Chloride (Heparin/ 0.45% Nacl-25,000 Unit/500 Ml) 25,000 unit in 500 mls @ 30 mls/hr IV TITR RAKESH; Protocol Last Admin: 12/05/20 12:10 Dose: 1,500 units/hr, 30 mls/hr Documented by: Exam - Physical Exam Narrative exam: GENERAL: well-developed morbidly obese -Emirati male sitting on bed appeared to be in no discomfort. HEENT: Normocephalic. Atraumatic. No conjunctival congestion or icterus. Patient has moist mucous membranes. NECK: Supple. Trachea midline. CHEST/LUNGS: Clear to auscultated bilaterally, breathing nonlabored. No wheezes crackles or rhonchi. HEART/CARDIOVASCULAR: Regular in rate and rhythm. S1 and S2 positive. ABDOMEN: Abdomen is soft, nontender. Patient has normal bowel sounds. SKIN: There is no rash. Warm and dry. NEURO: No focal motor deficit. Follows command. MUSCULOSKELETAL: No joint effusion or tenderness. EXTRIMITY: No edema, no cyanosis or clubbing. PSYCH: Cooperative. - Constitutional Vitals: Temp Pulse Resp BP Pulse Ox 98.4 F 72 22 112/68 94 12/04/20 17:04 12/05/20 12:30 12/05/20 12:30 12/05/20 12:30 12/05/20 12:30 HEART Score - HEART Score EKG: Normal Age: 45-65 Risk factors: > 3 risk factors or hx of atherosclerotic disease Troponin: Troponin T < 0.010 ng/mL (0.00-0.029) 12/04/20 20:52 Troponin: < normal limit - Critical Actions Critical Actions: 0-3 pts:0.9-1.7%risk of adverse cardiac event.Candidate for discharge Results - Labs CBC & Chem 7: 12/05/20 10:43 12/06/20 05:26 Labs: Abnormal lab results 12/04/20 12/04/20 Range/Units 17:10 17:10 MCV 97 H (84-94) fl RDW 15.8 H (13.2-15.2) % [place] % (Auto) 8.8 H (0.0-7.3) % Lymph # (Auto) 1.0 L (1.2-5.4) K/mm3 Chloride 108.3 H (98-107) mmol/L Carbon Dioxide 20 L (22-30) mmol/L BUN 28 H (9-20) mg/dL Creatinine 2.7 H (0.8-1.3) mg/dL Calcium 8.3 L (8.4-10.2) mg/dL Albumin 3.4 L (3.9-5) g/dL - Imaging and Cardiology Chest x-ray: report reviewed Venous US: report reviewed Assessment and Plan --Atypical Chest pain; patient has history of recurrent PE VQ scan showed low probability for pulmonary embolism, oxygen titrated to O2 sats more than 90%, nebulizers as needed continue to follow troponin, order for 2D echo Aspirin beta blockers Popeye inhibitors nitrates and statins, if any abnormalities noted Possible stress test , cardiology evaluation if needed --Extensive left lower extremity DVT: Initiated on heparin drip, will likely change to Eliquis tomorrow --History of recurrent DVT PE/status post IVC filter, noncompliant with anticoagulation. Patient was evaluated by vascular during his last admission and recommended anticoagulation for lifetime. --History of hypercoagulable state; patient was advised lifelong anticoagulation in the past, noncompliant due to Social issues, counseled --History of COPD; oxygen titrate to O2 sats more than 90%, nebulizers as needed --Medical noncompliance; counseling done patient strongly advised to comply with treatment plan --Ongoing tobacco use; smoking cessation counseling, nicotine patch as needed --FLAVIO on CKD, likely vasomotor nephropathy Creatinine 2.7 today, will place on gentle IV fluid hydration, will consult neurology, follow BMP and avoid nephrotoxins --History of lupus nephritis, currently not taking any medications Patient need 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
--- NOTE | 2020-12-05 16:21 | Consultation ---
History of Present Illness - Reason for Consult Consult date: 12/05/20 acute renal failure, chronic renal failure - History of Present Illness The patient is a 50 YO male with history significant for Morbid obesity, HTN, history of DVT & PE who was recommended systemic anticoagulation for life, COPD, Tobacco use, biopsy proven Lupus Nephritis, CKD and Medical non-compliance who presented to [facility] ED with c/o right-sided pleuritic chest pain for the past 3 days. The pain is constant, sharp, not radiating and worse with deep breath and associated with cough. Patient stopped taking all the meds for several years and hasn't seen a physician in years. He denies any N, V, D, abd pain, dysuria, hematuria, dizziness, syncope or sob. Work-up in the ED revealed extensive left leg DVT and VQ scan suggestive of low probability for PE. His creatinine also noted to be 2.7. Patient was initiated on heparin drip and admitted to the hospital for further evaluation management. Nephrology was consulted for further evaluation and treatment of FLAVIO. Past History Past Medical History: other (See HPI.) Medications and Allergies Allergies Allergy/AdvReac Type Severity Reaction Status Date / Time morphine Allergy Hives Verified 12/04/20 16:12 tramadol Allergy Nausea Verified 12/04/20 16:12 Home Medications Medication Instructions Recorded Confirmed Last Taken Type Methadone [Dolophine] 10 mg PO Q8H 10/12/17 12/05/20 10/12/17 History 1 Torsemide [Demadex] 100 mg PO QDAY 10/12/17 12/05/20 Unknown History traZODone [Desyrel] 100 mg PO QHS 10/12/17 12/05/20 Unknown History Apixaban [Eliquis] 5 mg PO Q12H #60 tablet 10/11/19 12/05/20 Unknown Rx Aspirin [Aspirin BABY CHEW TAB] 81 mg PO QDAY #30 tab.chew 10/11/19 12/05/20 Unknown Rx AtorvaSTATin [Lipitor] 40 mg PO QHS #30 tablet 10/11/19 12/05/20 Unknown Rx Nicotine [Habitrol] 21 mg TD QDAY #30 patch 10/11/19 12/05/20 Unknown Rx Triamcinolone 0.1% [Kenalog 0.1% 1 applic TP BID #2 tube 10/11/19 12/05/20 Unknown Rx CREAM] amLODIPine 5 mg PO QDAY #30 tablet 10/11/19 12/05/20 Unknown Rx hydrALAZINE [Apresoline TAB] 25 mg PO Q8HR #90 tablet 10/11/19 12/05/20 Unknown Rx lisinopriL [Zestril TAB] 5 mg PO QDAY #30 tablet 10/11/19 12/05/20 Unknown Rx oxyCODONE /ACETAMINOPHEN [Percocet 1 tab PO QHS PRN #7 tablet 10/13/19 12/05/20 Unknown Rx 5/325] Torsemide [Demadex] 100 mg PO QDAY 12/05/20 12/05/20 Unknown History Active Meds: Active Medications Amlodipine Besylate (Amlodipine 5 Mg Tab) 5 mg PO QDAY [facility] Last Admin: 12/05/20 12:09 Dose: 5 mg Documented by: Aspirin (Aspirin 81 Mg Tab Chew) 81 mg PO QDAY [facility] Last Admin: 12/05/20 12:08 Dose: 81 mg Documented by: Atorvastatin Calcium (Atorvastatin 40 Mg Tab) 40 mg PO QHS [facility] Heparin Sodium (Porcine) (Heparin 10,000 Units/10 Ml Vial) 4,300 unit 40 unit/kg (4300 unit) IV Q6H PRN PRN Reason: Anti-Xa Assay < 0.1 units/ml Hydralazine HCl (Hydralazine 25 Mg Tab) 25 mg PO Q8HR [facility] Heparin Sodium/Sodium Chloride (Heparin/ 0.45% Nacl-25,000 Unit/500 Ml) 25,000 unit in 500 mls @ 30 mls/hr IV TITR [facility]; Protocol Last Admin: 12/05/20 12:10 Dose: 1,500 units/hr, 30 mls/hr Documented by: Review of Systems Constitutional: no weight loss, no weight gain, no fever, no chills, no anorexia, no fatigue, no weakness, no poor appetite Ears, nose, mouth and throat: no epistaxis Cardiovascular: chest pain, no orthopnea, no edema, no syncope, no lightheadedness, no shortness of breath, no dyspnea on exertion, no high blood pressure, no leg edema Respiratory: cough, no hemoptysis, no shortness of breath, no dyspnea on exertion, no wheezing Gastrointestinal: no abdominal pain, no nausea, no vomiting, no diarrhea Genitourinary Male: no dysuria, no hematuria Rectal: no bleeding Musculoskeletal: no muscle weakness Neurological: no aphasia, no change in speech, no change in mentation, no confusion Exam - Vital Signs Vital signs: Vital Signs Temp Pulse Resp BP Pulse Ox 98.4 F 77 18 138/63 98 12/04/20 17:04 12/04/20 17:04 12/04/20 17:04 12/04/20 17:04 12/04/20 17:04 Results - Lab Results 12/05/20 10:43 12/04/20 17:10 Most recent lab results Calcium 8.3 mg/dL (8.4-10.2) L 12/04/20 17:10 Magnesium 1.70 mg/dL (1.7-2.3) 12/04/20 17:10 Assessment and Plan 1. Acute kidney injury: FLAVIO superimpsoed on CKD. Known h/o Lupus nephritis. Urine studies and Renal US ordered. Monitor renal function. Avoid nephrotoxic agents. Meds dosage based on GFR. 2. FEN: Hyperchloremia, monitor. Monitor volume status and lytes. 3. Lupus Nephritis: Resume his prior meds, Prednisone and Cellcept (per patient). Check Complements. 4. Acute L LE DVT: Heparin drip. H/o recurrent DVT PE/status post IVC filter, noncompliant with anticoagulation. Patient was evaluated by vascular during his last admission and recommended anticoagulation for lifetime. History of hypercoagulable state; patient was advised lifelong anticoagulation in the past. 5. Atypical Chest pain: History of recurrent PE. heparin drip. VQ scan showed low probability for pulmonary embolism. Troponin negative. Aspirin beta blockers Popeye inhibitors nitrates and statins. 6. HTN: BP controlled. 7. History of COPD: Oxygen titrate to O2 sats more than 90%, nebulizers as needed. 8. Ongoing tobacco use: Smoking cessation counseling, nicotine patch as needed. 9. Medical noncompliance: Counseled. Subjective: Patient was seen and examined at the bedside. Objective: General appearance: well-developed, appears stated age, obese, not in distress HEENT: ATNC Neck: trachea midline Respiratory: diminished breath sounds bilaterally Heart: S1S2, regular, no murmur Abdomen: soft, normoactive bowel sounds, not tender Integumentary: no obvious rash Ext: trace LE edema Neurologic: alert, conversing, able to move extremities
[2020-12-05] MEDS: oxyCODONE /ACETAMINOPHEN 5-325MG TAB PO PRN (22:52)
[2020-12-05] MEDS: MYCOPHENOLATE 500 MG TAB PO SCH (23:01)
[2020-12-06] MEDS: HEPARIN/ 0.45% NACL DRIP 25,000 UNIT/500 ML BAG IV SCH ×2 (05:26→22:39)
[2020-12-06] MEDS: hydrALAZINE 25 MG TAB PO SCH ×2 (05:26→14:39)
[2020-12-06 05:51] LABS: Bilirubin,Urine NEG (Negative); Blood,Urine NEG (Negative); Color,Urine Yellow (Yellow); Urobilinogen,Urine < 2.0 mg/dL (<2.0)
[2020-12-06 05:53] LABS: Protein,Urine >500 mg/dL (Negative)
[2020-12-06 06:01] LABS: Creatinine,Urine 164.7 mg/dL (0.1-20.0)
[2020-12-06 06:12] LABS: Protein/Creatinine Ratio,Urine 2.68
--- NOTE | 2020-12-06 09:21 | Progress Note ---
Assessment and Plan 1. Acute kidney injury: FLAVIO superimpsoed on CKD. Known h/o Lupus nephritis. Urine studies and Renal US ordered. Monitor renal function. Creatinine level is improving. Avoid nephrotoxic agents. Meds dosage based on GFR. 2. FEN: Hyperkalemia, Kayexalate ordered. Hyperchloremia, monitor. Monitor volume status and lytes. 3. Lupus Nephritis: Resume Prednisone and Cellcept (per patient). Complements levels pending. 4. Acute L LE DVT: Heparin drip. H/o recurrent DVT PE/status post IVC filter, noncompliant with anticoagulation. Patient was evaluated by vascular during his last admission and recommended anticoagulation for lifetime. History of hypercoagulable state; patient was advised lifelong anticoagulation in the past. 5. Atypical Chest pain: History of recurrent PE. Heparin drip. VQ scan showed low probability for pulmonary embolism. Troponin negative. Aspirin beta blockers Popeye inhibitors nitrates and statins. 6. HTN: BP controlled. 7. History of COPD: Oxygen titrate to O2 sats more than 90%, nebulizers as needed. 8. Ongoing tobacco use: Smoking cessation counseling, nicotine patch as needed. 9. Medical noncompliance: Counseled. Subjective: Patient was seen and examined at the bedside. No new complaint. Objective: General appearance: well-developed, appears stated age, obese, not in distress HEENT: ATNC Neck: trachea midline Respiratory: diminished breath sounds bilaterally Heart: S1S2, regular, no murmur Abdomen: soft, normoactive bowel sounds, not tender Integumentary: LE stasis changes noted Ext: trace LE edema Neurologic: alert, conversing, able to move extremities Subjective Date of service: 12/06/20 Objective - Vital Signs Vital signs: Vital Signs - 12hr 12/05/20 12/05/20 12/05/20 21:30 22:52 22:55 Temperature 97.7 F Pulse Rate 90 78 89 Respiratory 20 16 Rate Blood Pressure 132/61 129/70 O2 Sat by Pulse 94 Oximetry 12/05/20 12/06/20 12/06/20 23:52 03:13 04:33 Temperature 97.2 F L Pulse Rate 88 88 Respiratory 18 16 Rate Blood Pressure 130/62 O2 Sat by Pulse 100 Oximetry 12/06/20 05:26 Temperature Pulse Rate 88 Respiratory Rate Blood Pressure 130/62 O2 Sat by Pulse Oximetry - Lab 12/05/20 10:43 12/06/20 05:26 Most recent lab results Calcium 8.0 mg/dL (8.4-10.2) L 12/06/20 05:26 Magnesium 1.70 mg/dL (1.7-2.3) 12/04/20 17:10 Urine Creatinine 164.7 mg/dL (0.1-20.0) H 12/06/20 Unknown Urine Sodium 55 mmol/L 12/06/20 Unknown Urine Total Protein 441 mg/dL (5-11.8) H 12/06/20 Unknown Medications & Allergies - Medications Allergies/Adverse Reactions: Allergies morphine Allergy (Verified 12/04/20 16:12) Hives tramadol Allergy (Verified 12/04/20 16:12) Nausea Home Medications: Home Medications Medication Instructions Recorded Confirmed Last Taken Type Methadone [Dolophine] 10 mg PO Q8H 10/12/17 12/05/20 10/12/17 History 1 Torsemide [Demadex] 100 mg PO QDAY 10/12/17 12/05/20 Unknown History traZODone [Desyrel] 100 mg PO QHS 10/12/17 12/05/20 Unknown History Apixaban [Eliquis] 5 mg PO Q12H #60 tablet 10/11/19 12/05/20 Unknown Rx Aspirin [Aspirin BABY CHEW TAB] 81 mg PO QDAY #30 tab.chew 10/11/19 12/05/20 Unknown Rx AtorvaSTATin [Lipitor] 40 mg PO QHS #30 tablet 10/11/19 12/05/20 Unknown Rx Nicotine [Habitrol] 21 mg TD QDAY #30 patch 10/11/19 12/05/20 Unknown Rx Triamcinolone 0.1% [Kenalog 0.1% 1 applic TP BID #2 tube 10/11/19 12/05/20 Unknown Rx CREAM] amLODIPine 5 mg PO QDAY #30 tablet 10/11/19 12/05/20 Unknown Rx hydrALAZINE [Apresoline TAB] 25 mg PO Q8HR #90 tablet 10/11/19 12/05/20 Unknown Rx lisinopriL [Zestril TAB] 5 mg PO QDAY #30 tablet 10/11/19 12/05/20 Unknown Rx oxyCODONE /ACETAMINOPHEN [Percocet 1 tab PO QHS PRN #7 tablet 10/13/19 12/05/20 Unknown Rx 5/325] Torsemide [Demadex] 100 mg PO QDAY 12/05/20 12/05/20 Unknown History Active Medications: Generic Name Dose Route Start Last Admin Trade Name Freq PRN Reason Stop Dose Admin Amlodipine Besylate 5 mg 12/05/20 12:00 12/05/20 12:09 Amlodipine 5 Mg Tab PO 5 mg QDAY RAKESH Administration Aspirin 81 mg 12/05/20 12:00 12/05/20 12:08 Aspirin 81 Mg Tab Chew PO 81 mg QDAY RAKESH Administration Atorvastatin Calcium 40 mg 12/05/20 22:00 12/05/20 22:52 Atorvastatin 40 Mg Tab PO 40 mg QHS RAKESH Administration Heparin Sodium (Porcine) 4,300 unit 12/05/20 10:36 Heparin 10,000 Units/10 Ml Vial 40 unit/kg (4300 unit) IV Q6H PRN Anti-Xa Assay < 0.1 units/ml Hydralazine HCl 25 mg 12/05/20 14:00 12/06/20 05:26 Hydralazine 25 Mg Tab PO 25 mg Q8HR RAKESH Administration Heparin Sodium/Sodium Chloride 25,000 unit in 500 mls @ 30 mls/hr 12/05/20 1 2:00 12/06/20 05:26 Heparin/ 0.45% Nacl-25,000 Unit/500 Ml IV 1,600 units/hr TITR RAKESH 32 mls/hr Administration Protocol 1,500 UNITS/HR Mycophenolate Mofetil 500 mg 12/05/20 22:00 12/05/20 23:01 Mycophenolate 500 Mg Tab PO 500 mg BID RAKESH Administration Oxycodone/Acetaminophen 1 tab 12/05/20 20:45 12/05/20 22:52 Oxycodone /Acetaminophen 5-325mg Tab PO 1 tab QHS PRN Administration Pain, Moderate (4-6) Prednisone 20 mg 12/06/20 10:00 Prednisone 20 Mg Tab PO QDAY RAKESH
[2020-12-06] MEDS: amLODIPine 5 MG TAB PO SCH (09:49)
[2020-12-06] MEDS: SODIUM CHLORIDE 0.9% 1000 ML 1,000 ML IV SCH (09:49)
[2020-12-06] MEDS: predniSONE 20 MG TAB PO SCH (09:50)
[2020-12-06] MEDS: ASPIRIN 81 MG TAB CHEW PO SCH (09:50)
[2020-12-06] MEDS: MYCOPHENOLATE 500 MG TAB PO SCH ×2 (09:51→22:35)
[2020-12-06] MEDS ORDERED: SODIUM POLYSTYRENE 15 GM/60 ML ORAL LIQD PO ONE ×2 (10:21→10:24)
--- NOTE | 2020-12-06 10:35 | Consultation ---
History of Present Illness Consult date: 12/06/20 Consult reason: chest pain History of present illness: This is a 50-year old M with a history of DVT previously on Eliquis for anticoagulation, Lupus nephritis, peripheral artery disease with chronic bilateral lower extremity edema with discoloration. He also has chronic kidney disease. There is no prior cardiac history. A year ago an echocardiogram showed normal left ventricular systolic function, ejection fraction 50-55%. Patient presents to this hospital, admitted with atypical chest pain. Patient describes pain as right sided chest pain that is reproducible with palpation and worse with deep inspiration. Denies chest pain on exertion. Denies unusual shortness of breath and denies palpitations. Laboratory measurements shows a creatinine of 2.4 with a potassium or 5.7. Serial troponin measurements were normal. Further workup revealed left leg DVT. VQ scan suggestive of low probability for PE. An ECG is benign, normal sinus rhythm. Cardiology consultation was requested for chest pain. Past History Past Medical History: other (See HPI.) Medications and Allergies Allergies Allergy/AdvReac Type Severity Reaction Status Date / Time morphine Allergy Hives Verified 12/04/20 16:12 tramadol Allergy Nausea Verified 12/04/20 16:12 Home Medications Medication Instructions Recorded Confirmed Last Taken Type Methadone [Dolophine] 10 mg PO Q8H 10/12/17 12/05/20 10/12/17 History 1 Torsemide [Demadex] 100 mg PO QDAY 10/12/17 12/05/20 Unknown History traZODone [Desyrel] 100 mg PO QHS 10/12/17 12/05/20 Unknown History Apixaban [Eliquis] 5 mg PO Q12H #60 tablet 10/11/19 12/05/20 Unknown Rx Aspirin [Aspirin BABY CHEW TAB] 81 mg PO QDAY #30 tab.chew 10/11/19 12/05/20 Unknown Rx AtorvaSTATin [Lipitor] 40 mg PO QHS #30 tablet 10/11/19 12/05/20 Unknown Rx Nicotine [Habitrol] 21 mg TD QDAY #30 patch 10/11/19 12/05/20 Unknown Rx Triamcinolone 0.1% [Kenalog 0.1% 1 applic TP BID #2 tube 10/11/19 12/05/20 Unknown Rx CREAM] amLODIPine 5 mg PO QDAY #30 tablet 10/11/19 12/05/20 Unknown Rx hydrALAZINE [Apresoline TAB] 25 mg PO Q8HR #90 tablet 10/11/19 12/05/20 Unknown Rx lisinopriL [Zestril TAB] 5 mg PO QDAY #30 tablet 10/11/19 12/05/20 Unknown Rx oxyCODONE /ACETAMINOPHEN [Percocet 1 tab PO QHS PRN #7 tablet 10/13/19 12/05/20 Unknown Rx 5/325] Torsemide [Demadex] 100 mg PO QDAY 12/05/20 12/05/20 Unknown History Active Meds: Active Medications Amlodipine Besylate (Amlodipine 5 Mg Tab) 5 mg PO QDAY [facility] Last Admin: 12/06/20 09:49 Dose: 5 mg Documented by: Aspirin (Aspirin 81 Mg Tab Chew) 81 mg PO QDAY [facility] Last Admin: 12/06/20 09:50 Dose: 81 mg Documented by: Atorvastatin Calcium (Atorvastatin 40 Mg Tab) 40 mg PO QHS [facility] Last Admin: 12/05/20 22:52 Dose: 40 mg Documented by: Heparin Sodium (Porcine) (Heparin 10,000 Units/10 Ml Vial) 4,300 unit 40 unit/kg (4300 unit) IV Q6H PRN PRN Reason: Anti-Xa Assay < 0.1 units/ml Hydralazine HCl (Hydralazine 25 Mg Tab) 25 mg PO Q8HR [facility] Last Admin: 12/06/20 05:26 Dose: 25 mg Documented by: Heparin Sodium/Sodium Chloride (Heparin/ 0.45% Nacl-25,000 Unit/500 Ml) 25,000 unit in 500 mls @ 30 mls/hr IV TITR [facility]; Protocol Last Admin: 12/06/20 05:26 Dose: 1,600 units/hr, 32 mls/hr Documented by: Sodium Chloride (Nacl 0.9% 1000 Ml) 1,000 mls @ 100 mls/hr IV DIRECT [facility] Last Admin: 12/06/20 09:49 Dose: 100 mls/hr Documented by: Mycophenolate Mofetil (Mycophenolate 500 Mg Tab) 500 mg PO BID [facility] Last Admin: 12/06/20 09:51 Dose: 500 mg Documented by: Oxycodone/Acetaminophen (Oxycodone /Acetaminophen 5-325mg Tab) 1 tab PO QHS PRN PRN Reason: Pain, Moderate (4-6) Last Admin: 12/05/20 22:52 Dose: 1 tab Documented by: Prednisone (Prednisone 20 Mg Tab) 20 mg PO QDAY [facility] Last Admin: 12/06/20 09:50 Dose: 20 mg Documented by: Review of Systems Cardiovascular: chest pain, leg edema (chronic), no palpitations, no rapid/irregular heart beat, no syncope, no lightheadedness, no shortness of breath Physical Examination Vital Signs Temp Pulse Resp BP Pulse Ox 98.4 F 77 18 138/63 98 12/04/20 17:04 12/04/20 17:04 12/04/20 17:04 12/04/20 17:04 12/04/20 17:04 General appearance: no acute distress HEENT: Positive: PERRL Neck: Positive: trachea midline Cardiac: Positive: Reg Rate and Rhythm Lungs: Positive: Normal Breath Sounds Neuro: Positive: Grossly Intact Extremities: Present: Other (chronic bilateral lower extremity leg edema with discoloration) Results 12/05/20 10:43 12/06/20 05:26 Coagulation 12/05/20 Range/Units 10:43 PT 13.6 (12.2-14.9) Sec. INR 1.06 (0.87-1.13) APTT 26.5 (24.2-36.6) Sec. CBC 12/05/20 Range/Units 10:43 Hgb 14.2 (11.8-15.2) gm/dl Hct 43.5 (35.5-45.6) % Plt Count 143 (140-440) K/mm3 Comprehensive Metabolic Panel 12/06/20 Range/Units 05:26 Sodium 138 (137-145) mmol/L Potassium 5.7 H (3.6-5.0) mmol/L Chloride 108.2 H (98-107) mmol/L Carbon Dioxide 18 L (22-30) mmol/L BUN 34 H (9-20) mg/dL Creatinine 2.4 H (0.8-1.3) mg/dL Glucose 176 H (75-100) mg/dL Calcium 8.0 L (8.4-10.2) mg/dL Assessment and Plan - Patient Problems (1) Chest pain Current Visit: No Status: Acute Qualifiers: Qualified Code(s): R07.9 - Chest pain, unspecified Plan to address problem: Chest pain is atypical. Will order an echocardiogram for LVEF assessment.
--- NOTE | 2020-12-06 11:51 | Electrocardiograph Report ---
[facility] Test Date: 2020-12-04 Test Time: 16:16:53 Pat Name: ERICA BAUER Department: Room: A466 Gender: M Dye Blender: EKATERINA : 1970 Requested By: PAT RODRIGUEZ Order Number: [id number] Reading MD: Anali Patel Measurements Intervals [place] Rate: 87 P: 57 MI: 161 QRS: 27 QRSD: 80 T: 31 QT: 364 QTc: 439 Interpretive Statements Sinus rhythm No previous ECG available for comparison Electronically Signed On 12-06-2020 11:51:10 EDT by Anali Patel
--- NOTE | 2020-12-06 14:27 | Progress Note ---
Assessment and Plan --Atypical Chest pain; patient has history of recurrent PE VQ scan showed low probability for pulmonary embolism, oxygen titrated to O2 sat s more than 90%, nebulizers as needed continue to follow troponin, ordered for 2D echo Aspirin beta blockers Popeye inhibitors nitrates and statins, if any abnormalities noted Possible stress test , cardiology evaluation if needed --Extensive left lower extremity DVT: Initiated on heparin drip, will likely change to Eliquis tomorrow --Hyperkalemia, ordered for Kayexalate sodium bicarbonate and calcium gluconate Repeat BMP tomorrow morning --History of recurrent DVT PE/status post IVC filter, noncompliant with anticoagulation. Patient was evaluated by vascular during his last admission and recommended anticoagulation for lifetime. --History of hypercoagulable state; patient was advised lifelong anticoagulation in the past, noncompliant due to Social issues, counseled --History of COPD; oxygen titrate to O2 sats more than 90%, nebulizers as needed --Medical noncompliance; counseling done patient strongly advised to comply with treatment plan --Ongoing tobacco use; smoking cessation counseling, nicotine patch as needed --FLAVIO on CKD, likely vasomotor nephropathy Creatinine 2.7 today, will place on gentle IV fluid hydration, will consult neurology, follow BMP and avoid nephrotoxins --History of lupus nephritis, currently not taking any medications Patient need outpatient follow-up with light out examiner and logistics vice president --DVT prophylaxis, patient currently on heparin drip --Chronic pain syndrome, takes methadone as outpatient but states he has not been on that recently Plan of care is reviewed with the patient at the bedside Disposition; follow BMP, follow nephrology and cardiology evaluation and recommendations Daily clinical course: 12/06: Potassium level 5.7 today, ordered for Kayexalate sodium bicarbonate and calcium chloride. Creatinine 2.4 today. Continue IV fluid hydration. 2D echo showed preserved EF. Will change heparin drip to Eliquis if creatinine level continue to improve, if clinically stable and potassium level improves possible discharge tomorrow. We will also assess for home O2 requirement. Subjective Date of service: 12/06/20 Interval history: Patient seen and examined. Medical records and medication list reviewed. No acute event overnight noted by the RN. Patient complains of difficulty breathing on exertion. Patient is tolerating diet. He still complains of right-sided chest pain Discussed plan of care at bedside with patient. Objective - Exam Narrative Exam: GENERAL: well-developed morbidly obese -[place] male sitting on bed appeared to be in no discomfort. HEENT: Normocephalic. Atraumatic. No conjunctival congestion or icterus. Patient has moist mucous membranes. NECK: Supple. Trachea midline. CHEST/LUNGS: Clear to auscultated bilaterally, breathing nonlabored. No wheezes crackles or rhonchi. HEART/CARDIOVASCULAR: Regular in rate and rhythm. S1 and S2 positive. ABDOMEN: Abdomen is soft, nontender. Patient has normal bowel sounds. SKIN: There is no rash. Warm and dry. NEURO: No focal motor deficit. Follows command. MUSCULOSKELETAL: No joint effusion or tenderness. EXTRIMITY: No edema, no cyanosis or clubbing. PSYCH: Cooperative. - Constitutional Vitals: Vital Signs - 12hr 12/06/20 12/06/20 12/06/20 03:13 04:33 05:26 Temperature 97.2 F L Pulse Rate 88 88 88 Respiratory 16 Rate Blood Pressure 130/62 130/62 O2 Sat by Pulse 100 Oximetry 12/06/20 12/06/20 09:49 09:50 Temperature Pulse Rate 84 Respiratory Rate Blood Pressure 129/69 O2 Sat by Pulse 95 Oximetry - Labs CBC & Chem 7: 12/05/20 10:43 12/06/20 05:26 Labs: Abnormal lab results 12/05/20 12/06/20 12/06/20 Range/Units 22:31 05:26 05:26 Heparin Anti-Xa Level 0.15 L (0.3-0.7) U.I./ml Potassium 5.7 H (3.6-5.0) mmol/L Chloride 108.2 H (98-107) mmol/L Carbon Dioxide 18 L (22-30) mmol/L BUN 34 H (9-20) mg/dL Creatinine 2.4 H (0.8-1.3) mg/dL Glucose 176 H (75-100) mg/dL Calcium 8.0 L (8.4-10.2) mg/dL PTH Intact 250.5 H (15-65) pg/mL Urine Creatinine (0.1-20.0) mg/dL Urine Total Protein (5-11.8) mg/dL 12/06/20 Range/Units Unknown Heparin Anti-Xa Level (0.3-0.7) U.I./ml Potassium (3.6-5.0) mmol/L Chloride (98-107) mmol/L Carbon Dioxide (22-30) mmol/L BUN (9-20) mg/dL Creatinine (0.8-1.3) mg/dL Glucose (75-100) mg/dL Calcium (8.4-10.2) mg/dL PTH Intact (15-65) pg/mL Urine Creatinine 164.7 H (0.1-20.0) mg/dL Urine Total Protein 441 H (5-11.8) mg/dL HEART Score - HEART Score EKG: Normal Age: 45-65 Risk factors: > 3 risk factors or hx of atherosclerotic disease Troponin: Troponin T < 0.010 ng/mL (0.00-0.029) 12/04/20 20:52 Troponin: < normal limit - Critical Actions Critical Actions: 0-3 pts:0.9-1.7%risk of adverse cardiac event.Candidate for discharge
[2020-12-06] MEDS: SODIUM BICARBONATE 650 MG TAB PO SCH ×2 (15:18→22:35)
[2020-12-06] MEDS ORDERED: CALCIUM GLUCONATE 2,000 MG in SODIUM CHLORIDE 0.9% 100 ML IV ONE (15:38)
--- NOTE | 2020-12-06 18:24 | Ultrasound Report ---
Renal ultrasound INDICATION: Renal failure FINDINGS: Right kidney measures 11.7 x 5.8 x 6.1 cm. Left kidney measures 10.5 x 5.3 x 5.1 cm. Right kidney shows echogenic foci which could represent nonobstructing stones measuring up to 9 mm. Left ki dney is echogenic. IMPRESSION: 1. Echogenic foci within the right kidney could represent nonobstructing stones. Calcifications measu re up to 9 mm. 2. Left kidney is echogenic suggesting medical renal disease. Signer Name: Wood Diggs MD Signed: 12/06/2020 6:20 PM Workstation Name: [id number]
[2020-12-06] MEDS: oxyCODONE /ACETAMINOPHEN 5-325MG TAB PO PRN (22:35)
[2020-12-07] MEDS: hydrALAZINE 25 MG TAB PO SCH ×2 (04:00→05:58)
[2020-12-07 05:23] VITALS: BP 139/66
[2020-12-07 06:47] LABS: Calcium 7.4 mg/dL (8.4-10.2)
[2020-12-07] MEDS: SODIUM BICARBONATE 650 MG TAB PO SCH ×2 (08:58→09:10)
[2020-12-07] MEDS: ASPIRIN 81 MG TAB CHEW PO SCH ×2 (08:58→09:09)
[2020-12-07] MEDS: amLODIPine 5 MG TAB PO SCH ×2 (08:58→09:09)
[2020-12-07] MEDS: MYCOPHENOLATE 500 MG TAB PO SCH ×2 (08:58→09:09)
[2020-12-07] MEDS: predniSONE 20 MG TAB PO SCH ×2 (08:59→09:10)
[2020-12-07] MEDS: SODIUM CHLORIDE 0.9% 1000 ML 1,000 ML IV SCH (09:01)
--- NOTE | 2020-12-07 09:43 | Progress Note ---
Assessment and Plan - Patient Problems (1) Chest pain Current Visit: No Status: Acute Qualifiers: Qualified Code(s): R07.9 - Chest pain, unspecified Plan to address problem: Chest pain is atypical. pulmonary V/Q perfusion scan is low probability for pulmonary embolism. echo shows normal right heart size and function, normal left ventricular ejection fraction 65%. Conservative cardiac management. Subjective Date of service: 12/07/20 Interval history: Patient is sitting up in bed. Denies chest pain and denies SOB. Objective Vital Signs Temp Pulse Resp Resp BP Pulse Ox 12/07/20 07:54 68 12/07/20 07:53 18 12/07/20 07:52 97 12/07/20 05:58 71 139/66 12/07/20 04:04 97.4 F L 71 18 139/66 93 12/07/20 04:00 89 139/53 12/07/20 01:00 18 12/07/20 00:00 97 12/06/20 23:35 20 12/06/20 22:55 97.9 F 75 18 137/71 97 12/06/20 22:00 68 91 12/06/20 20:03 98.0 F 89 18 139/53 90 12/06/20 15:50 97.6 F 72 18 148/97 98 12/06/20 14:39 74 145/84 12/06/20 10:00 67 12/06/20 09:50 95 12/06/20 09:49 84 129/69 - Physical Examination General: No Apparent Distress HEENT: Positive: PERRL Neck: Positive: trachea midline Cardiac: Positive: Reg Rate and Rhythm Lungs: Positive: Decreased Breath Sounds Neuro: Positive: Grossly Intact Extremities: Present: Other (chronic bilateral lower extremity leg edema with discoloration) - Labs and Meds CBC 12/07/20 Range/Units 06:07 Hgb 14.0 (11.8-15.2) gm/dl Hct 42.0 (35.5-45.6) % Plt Count 154 (140-440) K/mm3 Comprehensive Metabolic Panel 12/07/20 Range/Units 06:07 Sodium 141 (137-145) mmol/L Potassium 4.4 D (3.6-5.0) mmol/L Chloride 110.3 H (98-107) mmol/L Carbon Dioxide 21 L (22-30) mmol/L BUN 33 H (9-20) mg/dL Creatinine 2.4 H (0.8-1.3) mg/dL Glucose 109 H (75-100) mg/dL Calcium 7.4 L (8.4-10.2) mg/dL
[2020-12-07] MEDS ORDERED: APIXABAN 5 MG TAB PO SCH (10:00)
--- NOTE | 2020-12-07 10:29 | Discharge Summary ---
Providers - Providers Date of Admission: 12/06/20 10:28 Date of discharge: 12/07/20 Attending physician: MARKELL DE JESUS 12/05/20 10:11 Consult to Physician [CONS] Urgent Comment: Consulting Provider: ATUL FINK Physician Instructions: Reason For Exam: worsening RF, Lupus nephritis hx 12/05/20 15:09 Consult to Physician [CONS] Routine Comment: Consulting Provider: KEVIN FRENCH Physician Instructions: Reason For Exam: chest pain Primary care physician: FIREFIGHTER MARINE Hospitalization Condition: Stable Pertinent studies: Pulmonary VQ scan, lower extremity venous Doppler, chest x-ray, renal ultrasound, 2D echocardiogram. Hospital course: This is a 50-year-old male who has history of biopsy-proven lupus nephritis, DVT and PE who was recommended systemic anticoagulation for lifetime but noncompliant with his medications presented to the hospital with right-sided pleuritic chest pain. Work-up in the ER revealed extensive left leg deep venous thrombosis on lower extremity venous Doppler, VQ scan suggestive of low probability for PE. His creatinine also noted to be 2.7, his last creatinine is documented 1.8. Patient was initiated on heparin drip and admitted to the hospital for further evaluation management. Daily clinical course: 12/06: Potassium level 5.7 today, ordered for Kayexalate sodium bicarbonate and calcium chloride. Creatinine 2.4 today. Continue IV fluid hydration. 2D echo showed preserved EF. Will change heparin drip to Eliquis if creatinine level continue to improve, if clinically stable and potassium level improves possible discharge tomorrow. We will also assess for home O2 requirement. 12/07: K level is normal. Cr 2.4 which could be his new baseline. Patient was initiated on prednisone 20 mg daily and CellCept 500 mg twice daily by sewer pipe cleaner. Heparin drip discontinued and initiated on Eliquis. Discussed with sewer pipe cleaner and recommended that patient would be follow-up as an outpatient. Patient was counseled thoroughly about the importance of being compliant with his medications. Patient verbalized understanding and was agreeable with the discharge plan. He was recommended to follow-up with sewer pipe cleaner within a week and a repeat BMP in a week. He will continue Eliquis 10 mg twice daily for 1 week then 5 mg twice daily. Patient was then discharged home in stable condition. Disposition: TO HOME OR SELFCARE Final Discharge Diagnosis (Prints w/discharge instructions): --Atypical right sided Chest pain; likely musculoskeletal. --Extensive left lower extremity acute DVT. --History of recurrent DVT PE/status post IVC filter, noncompliant with anticoagulation. --hypercoagulable state. --COPD. --Ongoing tobacco use. --FLAVIO on CKD, likely vasomotor nephropathy. --lupus nephritis. --Medical noncompliance;. --Hyperkalemia Time spent for discharge: 34 minutes Core Measure Documentation - Palliative Care Palliative Care/ Comfort Measures: Not Applicable - Core Measures Any of the following diagnoses?: none Exam - Physical Exam Narrative exam: GENERAL: well-developed morbidly obese -[place] male sitting on bed appeared to be in no discomfort. HEENT: Normocephalic. Atraumatic. No conjunctival congestion or icterus. P atient has moist mucous membranes. NECK: Supple. Trachea midline. CHEST/LUNGS: Clear to auscultated bilaterally, breathing nonlabored. No wheezes crackles or rhonchi. HEART/CARDIOVASCULAR: Regular in rate and rhythm. S1 and S2 positive. ABDOMEN: Abdomen is soft, nontender. Patient has normal bowel sounds. SKIN: There is no rash. Warm and dry. NEURO: No focal motor deficit. Follows command. MUSCULOSKELETAL: No joint effusion or tenderness. EXTRIMITY: No edema, no cyanosis or clubbing. PSYCH: Cooperative. - Constitutional Vitals: Temp Pulse Resp BP Pulse Ox 97.4 F L 68 18 139/66 97 12/07/20 04:04 12/07/20 07:54 12/07/20 07:53 12/07/20 05:58 12/07/20 07:52 Plan Activity: advance as tolerated Weight Bearing Status: Weight Bear as Tolerated Diet: low fat, renal Additional Instructions: Continue Eliquis 10 mg twice daily for 1 week then 5 mg twice daily for recurrent DVTs. Please be compliant with your medications. Follow-up with sewer pipe cleaner in 1 week for your history of chronic kidney disease/lupus nephritis. Repeat BMP in 1 week Follow up with: MARY BERUMEN MD [Primary Care Provider] - 3-5 Days ATUL FINK MD [Staff Physician] - 7 Days Prescriptions: Mycophenolate [Cellcept] 500 mg PO BID #60 tablet predniSONE [Deltasone] 20 mg PO QDAY #14 tablet Apixaban [Eliquis] 5 mg PO Q12HR #60 tablet
[2020-12-14] MEDS ORDERED: APIXABAN 5 MG TAB PO SCH (10:00)
== END 2020-12-07 12:39 | disposition home or self-care (01) | DRG 299 ==
LOC: ED 16:06 → 4A 12-05 12:14 → OBSVTOIN 12-06 10:28
PROVIDERS: ADMIT Internal Medicine; ATTEND Internal Medicine
DX: I82.402 Acute embolism and thrombosis of unspecified deep veins of left lower extremity (principal); N17.0 Acute kidney failure with tubular necrosis; N18.4 Chronic kidney disease, stage 4 (severe); D68.59 Other primary thrombophilia; E87.5 Hyperkalemia; J44.9 Chronic obstructive pulmonary disease, unspecified; F17.200 Nicotine dependence, unspecified, uncomplicated; M32.14 Glomerular disease in systemic lupus erythematosus; G89.4 Chronic pain syndrome; I73.9 Peripheral vascular disease, unspecified; M19.90 Unspecified osteoarthritis, unspecified site; R07.89 Other chest pain; Z86.718 Personal history of other venous thrombosis and embolism; Z86.711 Personal history of pulmonary embolism; Z91.14 Patient's other noncompliance with medication regimen; Z79.01 Long term (current) use of anticoagulants; Z71.6 Tobacco abuse counseling; Z88.5 Allergy status to narcotic agent; Z79.82 Long term (current) use of aspirin; Z79.899 Other long term (current) drug therapy; Z82.49 Family history of ischemic heart disease and other diseases of the circulatory system
CPT/HCPCS: 36415; 71045; 76770; 78580; 80048; 80053; 81001; 82570; 83735; 83880; 83970; 84156; 84300; 84484; 85014; 85018; 85025; 85049; 85520; 85610; 85730; 86160; 87641; 93005; 93306; 93970; 94644; 96374; 96375; G0378; A9270-GY; A9540; J0610; J1644; J2930; J7030; J7512; J7517